=== PATIENT | female | born 1960 | race Caucasian/White ===

== ENCOUNTER 2021-09-27 14:06 | Emergency (ER) | payer MEDICAID, SELFPAY ==
[2021-09-27 14:07] VITALS: BP 119/74; PULSE 72; RESP 18; TEMP 36.2; O2SAT 97; BMI 45.9
--- NOTE | 2021-09-27 14:27 | ED.VIS.GI ---
HPI HPI - GI History of Present Illness Chief Complaint: Abd Pain Informant: patient Abdominal Pain/Flank Pain Onset: Days Context: Sudden Onset Timing: Continuous Quality: Aching, Cramping and Dull Location: Diffuse Current Severity: Mild Maximum Severity: Mild Worsened by: Nothing Relieved by: Nothing Nausea/Vomiting/Emesis GI Symptom: Negative for Nausea and Vomiting Diarrhea/Melena/Hematochezia GI Symptom: Negative for Diarrhea, Melena and Hematochezia Associated Symptoms Associated Symptoms: Negative for Dysuria, Frequency, Hematuria and Urgency Narrative Narrative: 61-year-old female undergoing chemotherapy for lymphoma. Had chemotherapy last Thursday and the prior Thursday. States she has been doing well surgical and abdominal pain periumbilical for last 4 days. Denies any nausea vomiting or diarrhea. No fever or chills. No dysuria. No melena. Said last week she was constipated but she has been having bowel movements now. She has had a prior cholecystectomy and . Prior similar symptoms: No Recent Illness/Hospitalization: No PFSH PFSH Medical History Chronic depressive personality disorder Degenerative disc disease Genital herpes Hypertension Lymphoma Osteoarthritis Home Medications amlodipine 5 mg PO DAILY #30 tablet 11/14/16 [Rx Last Taken Unknown] fluoxetine 20 mg PO DAILY #30 capsule 11/14/16 [Rx Last Taken Unknown] lisinopril-hydrochlorothiazide [Zestoretic] 1 ea PO DAILY #30 tab 11/14/16 [Rx Last Taken Unknown] nicotine 21 mg TRANSDERM. DAILY #30 patch 11/14/16 [Rx Last Taken Unknown] Allergy/AdvReac Type Severity Reaction Status Date / Time celecoxib [From Celebrex] Allergy Itching Verified 09/27/21 14:06 rabbit dander Allergy Other Verified 09/27/21 14:06 Surgical History History of cholecystectomy Social History Smoking Status: Current every day smoker tobacco type: cigarettes ROS ROS ED ROS Narrative Abdominal pain. Review of Systems ROS Unobtainable: Denies due to encephalopathy Constitutional Constitutional ED: Denies fever(s) ENT ENT ED: Denies ear pain Cardiovascular Cardiovascular: Denies chest pain Respiratory/Chest Respiratory/Chest: Denies dyspnea Gastrointestinal Gastrointestinal: Reports abdominal pain and constipation; Denies diarrhea, melena, nausea or vomiting Genitourinary Genitourinary ED: Denies dysuria Musculoskeletal Musculoskeletal: Denies myalgias Integumentary Denies rash Neurologic Neurologic: Denies headache(s) Psychiatric Psychiatric: Denies depression Endocrine Endocrinology: Denies polyuria Hematologic/Lymphatic Hematologic/Lymphatic: Denies easy bruising Allergic/Immunologic Allergic/Immunologic ED: Denies urticaria EXAM Physical Exam Narrative Exam Narrative: 61-year-old female no acute distress. Vital signs stable afebrile. HEENT exam unremarkable. Neck nontender. Lungs clear to auscultation bilaterally. Heart regular rate and rhythm rate about 70 no murmur. Abdomen soft nondistended normal bowel sounds no peritoneal signs. Mild periumbilical tenderness. No pulsatile mass. No hernia. No obstruction. Right upper and lower quadrants are unremarkable. Moving all 4 extremities. Neurologically she is awake and alert with no focal motor deficits. Const Vital Signs: 09/27/21 14:07 09/27/21 17:00 Temperature 97.2 F L Temperature Source Temporal Pulse Rate 72 67 Respiratory Rate 18 16 Blood Pressure 119/74 149/76 H Blood Pressure Mean 89 100 Pulse Ox 97 97 Oxygen Delivery Method Room Air Room Air Positive well nourished, well developed and obese; Negative for cachectic, contractures or unkempt General Appearance ED: well developed and NAD; Negative for unkempt, cachectic, contractures or pallor Nutritional Appearance: obese; Negative for cachectic HEENT Reports moist mucous membranes normocephalic and atraumatic; Negative for trauma or tenderness Eyes PERRL and EOMs intact bilaterally General Eye ED: Negative for pale conjunctiva or scleral icterus Neck no lymphadenopathy, supple and no JVD General: Negative for tenderness Resp normal respiratory effort and clear to auscultation bilaterally Auscultation: Negative for rales, rhonchi or wheezes Cardio regular rate, regular rhythm, S1 normal heart sound, S2 normal heart sound and no murmurs GI non-distended and no masses; Negative for non-tender Inspection: abdominal distention Auscultation: normoactive bowel sounds and hypoactive bowel sounds Palpation: soft and tender; Negative for guarding, rigid or rebound tenderness present Back/Spine no CVA tenderness General Back: Negative for CVA tenderness Cervical Spine: Negative for cervical spine tenderness Thoracic Spine / Upper Back: Negative for thoracic spinal tenderness Extremity full ROM General Extremety ED: Negative for edema or tenderness General Extremity: Negative for edema Neuro moves all extremities Sensorium / Orientation: alert, oriented to person, oriented to place and oriented to time; Negative for orientation impaired, confused, lethargic or stuporous Motor Exam: strength 5/5 throughout Psych mental status grossly normal and thought process normal Appearance: Negative for unkempt Attitude: No agitated Mood & Affect: Negative for depressed or tearful Skin no wounds General Skin Exam: Negative for jaundice or pallor Lesions: no lesions Rashes: no rashes MDM MDM MDM Narrative Medical decision making narrative: 61-year-old female with lymphoma currently undergoing chemotherapy with periumbilical abdominal pain for the last 4 days. Exam benign. She is mildly tender. CAT scan and labs pending. She did not anything for pain at this time and is having no nausea. Repeat exam patient is doing well at 5:35 PM. Abdomen is benign. We went over all of her test results. Including her CAT scan. She will be discharged home with outpatient follow-up with her oncologist. She does return if worse. Lab Data Attestation: I reviewed the patient's lab results. Lab results narrative: CBC shows elevated white count of 16.6 she has a history of lymphoma. H&H 11.9 and 35.3. Platelets 210. Electrolytes show a gap of 4 BUN 27 creatinine 0.93 liver enzymes are normal. Lipase 112 and normal. Urinalysis is normal with no whites nor red cells nor bacteria nor nitrates. CAT scan shows enlarged lymph nodes consistent with lymphoma. Labs: Laboratory Results - last 24 hr 09/27/21 09/27/21 09/27/21 14:56 14:56 15:00 WBC 16.6 H RBC 3.95 L Hgb 11.9 L Hct 35.3 L MCV 89.4 MCH 30.1 MCHC 33.7 RDW Std Deviation 47.5 H RDW Coeff of Gabby 14.9 H Plt Count 210 MPV 9.9 Neut % (Auto) Not Reportable Absolute Neuts (auto) 14.6 H Absolute Lymphs (auto) 0.50 L Total Counted 100 Neutrophils % (Manual) 61 Band Neutrophils % 27 H Lymphocytes % (Manual) 3 L Monocytes % (Manual) 3 Eosinophils % (Manual) 1 Metamyelocytes % 3 H Myelocytes % 2 H Diff Path Review May foll Platelet Estimate ADEQUATE RBC Morphology NORM C+C Sodium 139 Potassium 3.7 Chloride 105 Carbon Dioxide 30.0 Anion Gap 4 L BUN 27 H Creatinine 0.93 Estim Creat Clear Calc 100.07 Est GFR (MDRD) Af Amer 79 Est GFR (MDRD) Non-Af 65 BUN/Creatinine Ratio 29.1 H Glucose 95 Calcium 8.6 Total Bilirubin 0.20 AST 14 L ALT 37 Alkaline Phosphatase 90 Total Protein 6.0 L Albumin 3.1 L Globulin 2.9 Albumin/Globulin Ratio 1.1 Lipase 112 Urine Color Yellow Urine Clarity Clear Urine pH 7.0 Ur Specific [place] 1.010 Urine Protein Negative Urine Glucose (UA) Normal Urine Ketones Negative Urine Occult Blood Negative Urine Nitrite Negative Urine Bilirubin Negative Urine Urobilinogen Normal Ur Leukocyte Esterase Negative Urine RBC 0 SEEN Urine WBC 0 SEEN Ur Squamous Epith Cells 0-5 SEEN Urine Bacteria 0 SEEN Urine Mucus 0 SEEN Radiography Diagnostic Testing: Clinical Impression(s) from Imaging Studies Abdomen/Pelvis CT 09/27/21 15:25 IMPRESSION: 1. No acute inflammatory process or bowel obstruction. 2. Mesenteric, retroperitoneal, iliac chain and inguinal adenopathy compatible with history provided of lymphoma. No comparison study to assess for interval change. 3. Hypodense lesions of the liver, some with ill-defined margins (indeterminate). ACR White Paper guidelines (Dionisio et al. JACR 2017; 14(11):1134-5835.) recommend hepatic MR. Electronically Signed: Jeffrey Kolb MD ([place]) at 15:54 EDT Reading Location ID and State: / [place] , Service support , Discharge Plan Triage Chief Complaint: Abd Pain ED Provider: Checo Jarvis Dx/Rx/DC Orders Clinical Impression: Abdominal pain, History of lymphoma Instructions: Abdominal Pain Prescriptions: No Action amlodipine 5 MG tablet 5 mg PO DAILY Qty: 30 RF: 0 nicotine 21 MG patch 21 mg TRANSDERM. DAILY Qty: 30 RF: 0 fluoxetine 20 MG capsule 20 mg PO DAILY Qty: 30 RF: 0 lisinopril-hydrochlorothiazide [Zestoretic] 1 EACH tablet 1 ea PO DAILY Qty: 30 RF: 0 Primary Care Provider: Dandre Lee Referrals: Dandre Lee MD [Primary Care Provider] - As Needed Roe Camilo DO [STAFF PHYSICIAN] - 3-5 Days Activity Restrictions/Additional Instructions: Plenty of fluids and rest. Your test today look good. Follow-up with Dr. Camilo next week. Return if you are feeling a lot worse. Your labs and your CAT scan today were unremarkable. Disposition Disposition: Home, Self Care
[2021-09-27 15:05] LABS: Bacteria 0 SEEN /hpf (None Seen); Mucous, Urine 0 SEEN /hpf (<or=2+); Red Blood Cells-Urine 0 SEEN /hpf (0-5); White Blood Cells 0 SEEN /hpf (0-5)
[2021-09-27 15:07] LABS: Hematocrit 35.3 % (37-47); Hemoglobin 11.9 g/dL (12.0-15.0); Mean Corp Hgb Conc 33.7 g/dL (32-36); Mean Corpuscular Hgb 30.1 pg (27.0-32.0); Mean Corpuscular Volume 89.4 fL (81-99); Mean Platelet Vol. 9.9 fl (6.2-12.0); POSITIVE COUNT YES; POSITIVE MORPHOLOGY YES; Platelet Count 210 K/mm3 (150-450); RBC Distribution Width CV 14.9 % (11.6-14.6); RBC Distribution Width SD 47.5 fl (35.1-43.9); Red Blood Count 3.95 M/mm3 (4.2-5.4); White Blood Count 16.6 K/mm3 (4.4-11.0)
[2021-09-27 15:15] LABS: Color, Urine Yellow (Yellow); Glucose, Dipstick Normal (Normal); Ketone-Dipstick Negative (Negative); Leukocyte Esterase-Dipstick Negative /ul (Negative); Nitrite-Dipstick Negative (Negative); Occult Blood-Urine Negative /ul (Negative); Protein-Dipstick Negative (Negative); Urine Bilirubin Dipstick Negative (Negative); Urine Clarity Clear (Clear); Urine Urobilinogen Normal (Normal)
[2021-09-27 15:22] LABS: ALB/GLOB Ratio 1.1 RATIO (0.9-2.4); AST(SGOT) 14 U/L (15-37); Alanine Aminotransfer ALT/SGPT 37 U/L (13-56); Albumin, Serum 3.1 g/dL (3.2-5.0); Alkaline Phosphatase 90 U/L (45-117); Anion Gap 4 (5-15); BUN 27 mg/dL (7-18); BUN/Creat Ratio 29.1 RATIO (10-20); Calcium,Total 8.6 mg/dL (8.5-10.1); Chloride 105 mmol/L (98-107); Creatinine, Serum 0.93 mg/dL (0.55-1.02); EST Glomerular Filtration Rate 65 mL/min (>60); Est Glom Filt Rate - Afr Amer 79 mL/min (>60); Estimated Creatinine Clearance 100.07 ml/min; Globulin 2.9 g/dL (2.2-4.2); Glucose 95 mg/dL (74-106); Lipase 112 U/L (73-393); Potassium 3.7 mmol/L (3.5-5.1); Sodium Level 139 mmol/L (136-145)
--- NOTE | 2021-09-27 15:25 | CT_ITS ---
STUDY: CT ABDOMEN AND PELVIS WITH CONTRAST REASON FOR EXAM: Female, 61 years old. Abdominal pain, history of lymphoma. RADIATION DOSAGE (If Supplied By Facility): CTDIvol = ( 15.90 ) mGy, DLP = ( 1115.39 ) mGycm TECHNIQUE: Transaxial images were obtained from the dome of the diaphragm to the symphysis pubis without oral contrast. IV 100mL Isovue-300 was administered. Sagittal and coronal images were reconstructed. Individualized dose optimization techniques were used for this CT. COMPARISON: None. FINDINGS: The visualized lung bases are unremarkable. The visualized portions of the heart are within normal limits. Low-density lesions of the liver are identified measuring up to 1.1 cm, with mildly ill-defined margins involving some lesions. Normal gallbladder and extrahepatic biliary system. Well-defined simple cyst of the spleen. Normal pancreas. Normal bilateral adrenal glands. Normal right kidney. Normal left kidney. Normal visualized stomach. No dilated bowel. There are multiple colonic diverticula consistent with diverticulosis. There is non-visualization of the appendix. There is diffuse atherosclerotic calcification of the abdominal aorta, without a demonstrated aneurysm. Normal inferior vena cava. Adenopathy of the retroperitoneum the largest single lymph node measuring 2.5 x 3.0 cm on image 51 of series 2. There is also adenopathy of the mesentery root measuring up to 2.2 x 2.6 cm. Bilateral iliac chain adenopathy measuring up to 1.4 x 2.1 cm. Bilateral inguinal adenopathy also identified measuring up to 2.4 x 4.8 cm on the left side and 2.2 x 4.4 cm on the right side. Normal urinary bladder. Normal abdominal wall. There are diffuse degenerative changes of the visualized lumbar spine. CT/Abdomen/Pelvis W IV Cont ONLY IMPRESSION: 1. No acute inflammatory process or bowel obstruction. 2. Mesenteric, retroperitoneal, iliac chain and inguinal adenopathy compatible with history provided of lymphoma. No comparison study to assess for interval change. 3. Hypodense lesions of the liver, some with ill-defined margins (indeterminate). ACR White Paper guidelines (Dionisio, et al. JACR 2017; 14(11):4582-4120.) recommend hepatic MR. Electronically Signed: Jeffrey Kolb MD ([place]) at 15:54 EDT ,
[2021-09-27 15:38] LABS: Differential Indicated MANUAL DIFF
[2021-09-27 15:40] LABS: Squamous Epithelial Cells - UA 0-5 SEEN /hpf (5-10)
[2021-09-27 15:55] LABS: Eosinophil 1 % (0-5); Lymphocyte 3 % (19-41); Metamyelocyte 3 % (0-1); Monocyte 3 % (0-10); Myelocyte 2 % (0-0); Neutrophil-Band 27 % (0-5); Neutrophil-Segmented 61 % (47-70); Platelet Estimate ADEQUATE (ADEQ); Total Cells Counted 100 (MANUAL DIFF)
[2021-09-27 15:56] LABS: Red Cell Morphology NORM C+C NORMAL (NORM C&C)
[2021-09-27 16:00] LABS: Absolute Neutrophil Count 14.6 X10^3/uL (2.0-7.7)
[2021-09-27 17:00] VITALS: BP 149/76; PULSE 67; RESP 16; O2SAT 97
[2021-09-30 12:50] LABS: Pathologist Review Reviewed
== END 2021-09-27 18:17 | disposition home or self-care (01) ==
PROVIDERS: Emergency Provider Emergency Medicine; PCP Family Medicine; Visit Provider Emergency Medicine
DX: R10.9 Unspecified abdominal pain (principal); C85.90 Non-Hodgkin lymphoma, unspecified, unspecified site; I10 Essential (primary) hypertension; F17.210 Nicotine dependence, cigarettes, uncomplicated; Z79.899 Other long term (current) drug therapy; F32.A Depression, unspecified; M19.90 Unspecified osteoarthritis, unspecified site
CPT/HCPCS: 36591; 74177; 80053; 81001; 83690; 85025; 99284; Q9967; A4216

== ENCOUNTER 2021-10-14 09:12 | Emergency (ER) | payer MEDICAID, SELFPAY ==
[2021-10-14 09:13] VITALS: BP 138/77; PULSE 90; RESP 18; TEMP 36.2; O2SAT 98; BMI 44.5
[2021-10-14 09:25] VITALS: O2SAT 97
--- NOTE | 2021-10-14 09:35 | CT_ITS ---
STUDY: CTA CHEST REASON FOR EXAM: Female, 61 years old. Shortness of breath RADIATION DOSAGE (If Supplied By Facility): CTDIvol = ( 11.41 ) mGy, DLP = ( 519.34 ) mGycm TECHNIQUE: The examination was performed with the intravenous administration of IV 100mL Isovue-370. Post-processing of the angiographic images was performed, with multiplanar reformation and 3D reconstruction. Individualized dose optimization techniques were used for this CT. COMPARISON: None. FINDINGS: Right jugular chest port with tip of the catheter extending to the lower SVC. Normal enhancement of the main pulmonary artery and right and left pulmonary arteries. Normal enhancement of the bilateral peripheral pulmonary arteries. There is no demonstrated pulmonary embolism. Mild scattered atherosclerosis of the thoracic aorta. There is no demonstrated aortic dissection. Normal heart and pericardium. Normal mediastinum. Normal hilar regions. Normal visualized trachea and bronchi. The lungs are well expanded. Normal pulmonary parenchyma. Normal pleura. Normal chest wall structures. Normal osseous structures. Simple cyst of the elongated left hepatic lobe. Moderate size hiatal hernia. CT/CTA Chest W/WO Contrast IMPRESSION: No central or segmental pulmonary embolism. Electronically Signed: Jeffrey Kolb MD ([place]) at 10:54 EDT Reading Location ID and State: [place] , Service support ,
--- NOTE | 2021-10-14 10:02 | ED.VIS.DYS ---
HPI History of Present Illness Chief Complaint: Shortness of Breath Narrative Narrative: Patient presents with chest pain and some shortness of breath. She is on chemotherapy, she has had 5 rounds. She has no back pain. No cough or congestion. No recent fevers or chills. She has no lower extremity edema or calf pain. [facility] Medical History Chronic depressive personality disorder Degenerative disc disease Genital herpes Hypertension Lymphoma Osteoarthritis Home Medications lisinopril-hydrochlorothiazide [Zestoretic] 1 ea PO DAILY #30 tab 11/14/16 [Rx Last Taken Unknown] acyclovir 400 mg PO BID 10/14/21 [History Last Taken Unknown] allopurinol 300 mg PO DAILY 10/14/21 [History Last Taken Unknown] fluoxetine 60 mg PO DAILY 10/14/21 [History Last Taken Unknown] meloxicam 15 mg PO DAILY 10/14/21 [History Last Taken Unknown] pantoprazole 40 mg PO DAILY 10/14/21 [History Last Taken Unknown] prednisone 100 mg PO DAILY 10/14/21 [History Last Taken Unknown] promethazine 25 mg PO Q6H PRN 10/14/21 [History Last Taken Unknown] Allergy/AdvReac Type Severity Reaction Status Date / Time celecoxib [From Celebrex] Allergy Itching Verified 10/14/21 09:13 rabbit dander Allergy Other Verified 10/14/21 09:13 Surgical History History of cholecystectomy Social History Smoking Status: Current every day smoker tobacco type: cigarettes ROS ROS ED ROS Narrative Past medical history: Reviewed, lymphoma, hypertension Medications: Reviewed Social history: Noncontributory Review of systems: All systems negative except as indicated General: No fever Eyes: No visual changes ENT: No upper airway congestion, normal voice Neck: No neck pain Cardiovascular: Some slight sharp left upper chest pain near the clavicle Respiratory: Some shortness of breath mostly exertional Gastrointestinal: No abdominal pain, nausea vomiting or diarrhea Genitourinary: No dysuria Musculoskeletal: Denies myalgias no difficulty with ambulation Skin: No rash Neurological: No memory loss, confusion or any focal weakness Psych: No recent behavioral changes Hematologic: No easy bleeding or easy bruising EXAM Physical Exam Narrative Exam Narrative: Physical exam General: Patient appears relatively comfortable in the bed, she does not appear acutely ill. Head: Normocephalic, Atraumatic Eyes: Conjunctiva not pale ENT: Moist mucous membranes. I do not see any signs of dehydration Neck: Supple, Nontender, No lymphadenopathy Cardiovascular: Regular rate, Regular rhythm. I listened in all 4 points there is no murmurs. She has an S1 and S2 which are normal. I could not appreciate an S3 or S4. Respiratory: No distress, CTA bilaterally Abdomen: Soft, Nontender, Nondistended Back: Nontender, Normal Inspection. Negative for: CVA tenderness Extremities: Nontender, No edema Skin: Normal color, No rash Neurological: Alert, Normal Strength, Normal Sensation Psychological: Normal affect Const Vital Signs: 10/14/21 09:13 10/14/21 09:25 Temperature 97.1 F L Temperature Source Temporal Pulse Rate 90 Respiratory Rate 18 Respiratory Effort Normal Non-Labored Respiratory Depth Normal Respiratory Pattern Normal Blood Pressure 138/77 H Blood Pressure Mean 97 Pulse Ox 98 Oxygen Delivery Method Room Air Room Air MDM MDM MDM Narrative Medical decision making narrative: Patient has a normal troponin normal EKG and normal CT angiogram she appears well I believe she can safely be discharged I believe her dyspnea is likely secondary to the chemotherapeutic agents. Otherwise she appears well should be discharged in stable condition, she will will follow-up with her oncologist tomorrow Lab Data Labs: Laboratory Results - last 24 hr 10/14/21 10:15 Troponin I High Sens 6 Radiography Diagnostic Testing: Clinical Impression(s) from Imaging Studies Chest CTA 10/14/21 09:35 IMPRESSION: No central or segmental pulmonary embolism. Electronically Signed: Jeffrey Kolb MD ([place]) at 10:54 EDT Reading Location ID and State: [address] [place] [address] , Service support , Discharge Plan Triage Chief Complaint: Shortness of Breath ED Provider: Roe Aguilar Dx/Rx/DC Orders Prescriptions: No Action lisinopril-hydrochlorothiazide [Zestoretic] 1 EACH tablet 1 ea PO DAILY Qty: 30 RF: 0 meloxicam 15 mg tablet 15 mg PO DAILY RF: 0 prednisone 20 mg tablet 100 mg PO DAILY RF: 0 acyclovir 400 mg tablet 400 mg PO BID RF: 0 pantoprazole 40 mg tablet,delayed release (DR/EC) 40 mg PO DAILY RF: 0 promethazine 25 mg tablet 25 mg PO Q6H PRN (Reason: Nausea) RF: 0 allopurinol 300 mg tablet 300 mg PO DAILY RF: 0 fluoxetine 20 MG capsule 60 mg PO DAILY RF: 0 Primary Care Provider: Dandre Lee Referrals: Dandre Lee MD [Primary Care Provider] - 3-5 Days Roe Camilo DO [STAFF PHYSICIAN] - 1 Day Disposition Disposition: Home, Self Care
[2021-10-14 10:41] LABS: Troponin-I HS 6 pg/mL (3.0-54.0)
[2021-10-14 11:40] VITALS: PULSE 64; RESP 16; O2SAT 97
--- NOTE | 2021-10-14 11:41 | ED.RN ---
pt had port deaccessed. port flushed with heparin. pt tolerated well. pt given written and verbal discharge instructions. pt ambulated to without difficulty
== END 2021-10-14 11:41 | disposition home or self-care (01) ==
PROVIDERS: Emergency Provider Emergency Medicine; PCP Family Medicine; Visit Provider Emergency Medicine
DX: R06.02 Shortness of breath (principal); C85.90 Non-Hodgkin lymphoma, unspecified, unspecified site; I10 Essential (primary) hypertension; F17.210 Nicotine dependence, cigarettes, uncomplicated; Z79.899 Other long term (current) drug therapy; M19.90 Unspecified osteoarthritis, unspecified site; Z79.52 Long term (current) use of systemic steroids; A60.00 Herpesviral infection of urogenital system, unspecified
CPT/HCPCS: 36591; 71275; 84484; 99284; Q9967; A4216

== ENCOUNTER → 2022-05-05 | Outpatient (CLI) | payer MEDICAID, SELFPAY ==
--- NOTE | 2022-05-05 08:08 | RAD_ITS ---
PROCEDURE: Fluoroscopic guided Hip Injection DATE: 05/05/2022. INDICATION: Female, 62 years old. Osteoarthritis of the left hip joint. PHYSICIAN: Martin Alberto M.D. MEDICATIONS: 80 mg of KENALOG and 3 cc of 0.5% MARCAINE. 2% Lidocaine administered subcutaneously for local anesthesia. ACCESS SITE: Left hip. NEEDLE: 22-gauge spinal needle. FLUOROSCOPY TIME (if supplied): (0:49) minutes/seconds. One image was submitted. FINDINGS: The risks, benefits, and alternatives to the procedure were explained to the patient. The specific risks of bleeding, infection, and neurovascular injury were detailed and accepted. Witnessed informed consent was obtained. A 22-gauge spinal needle was positioned under Radiographic fluoroscopic localization. Approximately 2 cc of Omnipaque ISOVUE 300 instilled for localization purposes. Medication was then injected. The patient tolerated the procedure well without any immediate complications. RAD/Inj/Asp Mateo Jt Should/Hip/Knee IMPRESSION: 1. Successful fluoroscopic guided hip injection. Electronically Signed: Martin Alberto MD at 9:38 EST ,
[2022-05-05] MEDS: Lidocaine 2% (5ml sdv) 5 ML VIAL.MPF INFILT (08:30)
[2022-05-05] MEDS: Triamcinolone Acetonide 40 MG/ML Vial 80 MG OPERA.SITE (08:31)
[2022-05-05] MEDS: Bupivacaine 0.5% PF 10 ML VIAL OPERA.SITE (09:14)
== END | disposition home or self-care (01) ==
LOC: RAD 08:05
PROVIDERS: PCP Family Medicine; Referring Provider Orthopaedic Surgery; Visit Provider Orthopaedic Surgery
DX: M16.12 Unilateral primary osteoarthritis, left hip (principal)
CPT/HCPCS: 20610; 77002; Q9967

== ENCOUNTER 2023-09-24 11:00 | Outpatient (RCR) | payer MEDICAID, SELFPAY ==
--- NOTE | 2023-08-26 11:21 | HP.PTEVAL_ITS ---
Patient's Visit Information Visit Information Visit Information: DAERN JACKSON is a 63 year old F referred to Physical Therapy by Dr. Kenroy Art DO with a diagnosis of OTHER INTERVERTBRAL DISC DEGENERATION ,LUMBAR. Date of Evaluation: 08/26/23 Physical Therapist: Ti Ortiz, PT, Cert MDT, OCS Visit Plan Frequency: 2x /Week Duration: 4 Weeks Plan: PT INTERVENTIONS DLS ,POSTURAL EX'S , HIP ROM ,STRENGTHENING HIP ,FUNCTIONAL STRENGTHENING AND FUNCTIONAL STRENGTHENING Subjective Subjective: This 63 y/o female physical therapy with back pain and hip pain. Patient has had lumbar pain and hip pain many years with left hip pain worse past [address] hall x-rays showed severe DJD left hip , and DDD lumbar. Pain located symmetrical lumbar and left Glut to lateral hip. Aggravating factors walking/standing ,lifting housework . Allevationg rest and sitting. Medication : meloxicam. No pain management and prior PT. Coughing/ sneezing -. Bowel/bladder -. Denies paresthesia/tingling-. Pain affects sleeping. Patient is not working. Patient condition affects QOL and function. Dr wants MRI but needs PT Patient goals to decrease pain SOCIAL: single VOCATION: unemployed trying to get disability Pain Bilateral Back: Pain Intensity (Out of 10): 7 Pain Intensity Range: 10 Left Buttocks: Pain Intensity (Out of 10): 7 Pain Intensity Range: 10 Objective Objective: POSTURE: mild forward posture scoliosis bilateral knee varus hip/knee flexed NEURO: denies paresthesia/tingling ,reflexes L3-4,L4-5,L5-S1 2/3 PALAPTION: tender SI/LS PROM: hip left -20 degrees IR ,hip flexion 95 degrees FLEXIBILITY: hamstrings mod tight LUMBAR ROM: flexion min/mod loss ,extension severe loss pain ,side mod loss MMT: quads/hams 4/5 ,( peak force) hip flexion 15.8 ,hip abd 3.4 ,ankle 4/5 Special Tests L/S Slump test left side: Negative L/S Slump test right side: Negative L/S Left Straight Leg Raise: Negative L/S Right Straight Leg Raise: Negative L Hip Scour: Positive L Hip Quadrant - Intraarticular Pathology: Positive L Hip SIRISHA - Intraarticular Pathology: Positive L Hip Impingement Provocation - Labrum: Negative L Hip Sotero - IT Band: Positive Comment: SEVERE OA LEFT HIP Balance/Special Test Scores Oswestry Low Back Score: 32 Goals Goal 1:: I with HEP for lumbar Goal Time Frame: 4-6 Weeks Goal 2:: Patient to demonstrates 40% improvement with less pain and improved Goal Time Frame: 4-6 Weeks Goal 3:: Patient to improve lumbar lumbar ROM for function of recovery to tie shoes Goal Time Frame: 4-6 Weeks Goal 4:: Patient to improve hip ROM by 5-10 degrees or > to function with gait . Goal Time Frame: 4-6 Weeks Goal 5:: Patient to improve gait with less antalgic gait 80% . Goal Time Frame: 4-6 Weeks Goal 6:: Patient to improve back oswestry score by 5 points to improve QOL Rehabilitation Potential Physical Therapy Diagnosis: This patient has lumbar DDD and left hip severe DJD with ROM hip and pain along with weakness ,with decrease ROM lumbar with pain with positioning and motion affects affects walking and standing impairs ADLS thus benefit from skilled PT Rehabilitation Potential: Good Anticipated Interventions Patient/Client Instruction: Educate patient on: Condition and Plan of Care For the Purpose of:: To decrease pain, To increase ROM, To improve muscle performance and motor function, To improve ability to perform ADL's, To increase tolerance to activity/condition/position, To improve ability of physical actions for home/community/work/leisure, To improve health of tissue, To decrease soft tissue restriction, To increase flexibility/ROM and To improve tolerance to ADL's Therapeutic Exercise to Include: Strength training, Body mechanics, Postural training, Flexibilty training and Dynamic Lumbar Stabilization Comment: HIP STRENGTHENING For the Purpose of:: To decrease pain, To increase ROM, To improve ability to perform ADL's, To increase tolerance to activity/condition/position, To improve ability of physical actions for home/community/work/leisure, To improve health of tissue, To decrease soft tissue restriction, To increase flexibility/ROM and To improve tolerance to ADL's TENS: Yes IF ES: Yes Cryotherapy (ice pack, ice massage): Yes Thermo therapy (hot pack): Yes Ultrasound (thermal/non thermal): Yes For the Purpose of:: To decrease pain, To increase ROM, To improve health of tissue and To decrease soft tissue restriction Text: Thank you for the opportunity to evaluate your patient. For Medicare and Medicare HMO plans, please review the plan of care and approve it. It will need to be FAXED BACK to us at [phone] for Medicare purposes. For Medicare only, by signing this I certify the plan of care. Please let me know if there are questions or concerns regarding this plan of care. Physician Signature: Date:
--- NOTE | 2023-09-24 11:28 | HP.PTDCSUM ---
Discharge Summary D/C summary: It has been my pleasure to treat DAREN JACKSON referred by Dr. Kenroy Art DO, with the diagnosis of OTHER INTERVERTBRAL DISC DEGENERATION ,LUMBAR for a total of 7 visit(s). Discharge Date: Please see the following information for a summary of their discharge status. Subjective Subjective: Patient thinks she is not much. Pain worse with walking/standing Patient reports hip is worse than back Pain Bilateral Back: Pain Intensity (Out of 10): 3 Left Buttocks: Pain Intensity (Out of 10): 5 Overall Improvement % Improvement: 10 Objective Objective/Function: * Along with poor extension with pain and poor IR hip left along with hipm weakenss* POSTURE: mild forward posture scoliosis bilateral knee varus hip/knee flexed NEURO: denies paresthesia/tingling ,reflexes L3-4,L4-5,L5-S1 2/3 PALAPTION: tender SI/LS PROM: hip left -20 degrees IR ,hip flexion 95 degrees FLEXIBILITY: hamstrings mod tight LUMBAR ROM: flexion min/mod loss ,extension severe loss pain ,side mod loss MMT: quads/hams 4/5 ,( peak force) hip flexion 21.8 ,hip abd 9.0 ,ankle 4/5 Goals Goal 1:: I with HEP for lumbar Goal Progress: Progressing Goal 2:: Patient to demonstrates 40% improvement with less pain and improved Goal Progress: Progressing Goal 3:: Patient to improve lumbar lumbar ROM for function of recovery to tie shoes Goal Progress: Progressing Goal 4:: Patient to improve hip ROM by 5-10 degrees or > to function with gait . Goal Progress: Progressing Goal 5:: Patient to improve gait with less antalgic gait 80% . Goal Progress: Progressing Goal 6:: Patient to improve back oswestry score by 5 points to improve QOL Plan Plan: RTD to DR bang MRI D/C Information d/c sentence: If there are questions or concerns regarding this patient's physical therapy, please feel free to call me at [phone]. Thank you for the referral of this patient. Sincerely, Ti Ortiz, PT, Cert MDT, OCS Balance/Gait/Functional tests Balance/Special Test Scores Oswestry Low Back Score: 32 Improvement % Improvement: 10
== END 2023-09-24 19:00 | disposition home or self-care (01) ==
LOC: PT 11:00
PROVIDERS: PCP Family Medicine; Visit Provider Orthopaedic Surgery
DX: M51.36 Other intervertebral disc degeneration, lumbar region (principal)
CPT/HCPCS: 97110; 97162; 97530

== ENCOUNTER 2023-10-05 19:34 | Emergency (ER) | payer MEDICAID, SELFPAY | END 2023-10-05 19:41 | disposition left against medical advice (07) | LOC: ED 10-06 08:04 | PROVIDERS: PCP Family Medicine | DX: Z53.21 Procedure and treatment not carried out due to patient leaving prior to being seen by health care provider (principal) ==

== ENCOUNTER → 2023-10-22 | Outpatient (CLI) | payer MEDICAID, SELFPAY ==
--- NOTE | 2023-10-22 10:47 | MRI_ITS ---
EXAM: MR LUMBAR SPINE WITHOUT INTRAVENOUS CONTRAST CLINICAL INDICATION: pain TECHNIQUE: Multiplanar and multisequence MR images of the lumbar spine without intravenous contrast. COMPARISON: Lumbar spine radiographs, 08/14/2023; CT abdomen and pelvis, 09/27/2021. FINDINGS: VERTEBRAE: Postoperative changes of mild degenerative changes partially visualized in the cervical spine. Mild degenerative changes in the thoracic spine without significant spinal canal or neural foraminal stenosis. Vertebral body heights are preserved. Normal alignment. No spondylolisthesis. There is preservation of the normal lumbar lordosis. SPINAL CORD: The distal spinal cord is normal in signal and morphology. No mass effect upon the distal spinal cord. Normal position and signal intensity of the conus medullaris. SOFT TISSUES: No significant abnormality. DISCS/SPINAL CANAL/NEURAL FORAMINA: L1-L2: Disc height loss and disc desiccation. Disc bulge with superimposed right central disc herniation and moderate bilateral facet arthrosis resulting in moderate spinal canal stenosis and mild bilateral neural foraminal narrowing. Impingement of the right L2 nerve root. L2-L3: Disc height loss and disc desiccation. Disc bulge with superimposed central disc herniation and moderate bilateral facet arthrosis. Mild to moderate spinal canal stenosis and mild bilateral neural foraminal narrowing. No nerve root impingement. L3-L4: Disc height loss and disc desiccation. Disc bulge and moderate to severe bilateral facet arthrosis with ligamentum flavum thickening. Mild to moderate spinal canal stenosis and mild bilateral neural foraminal narrowing. No nerve root impingement. L4-L5: Disc bulge with superimposed right foraminal to extraforaminal disc herniation and moderate to severe bilateral facet arthrosis. Mild bilateral neural foraminal narrowing and mild spinal canal stenosis. L5-S1: Disc height loss and disc desiccation. Disc bulge and moderate to severe bilateral facet arthrosis. Central disc herniation. Mild spinal canal stenosis and mild bilateral neural foraminal narrowing. No nerve root impingement. MRI/Spine Lumbar (Routine) IMPRESSION: 1. Multilevel degenerative changes throughout the lumbar spine as detailed above. Mild to moderate multilevel spinal canal stenosis and neural foraminal narrowing. Right L2 nerve root impingement. 2. Postoperative changes of mild degenerative changes partially visualized in the cervical spine. If there is concern for cervical spine pathology, recommend indicate images of the cervical spine. Electronically Signed: Carlito Cardenas DO at 19:41 EDT ,
== END | disposition home or self-care (01) ==
LOC: MRI 10:46
PROVIDERS: PCP Family Medicine; Referring Provider Orthopaedic Surgery; Visit Provider Orthopaedic Surgery
DX: M51.36 Other intervertebral disc degeneration, lumbar region (principal)
CPT/HCPCS: 72148

== ENCOUNTER 2023-12-08 14:05 | Inpatient (IN) | payer MEDICAID, SELFPAY ==
[2023-12-08] VITALS (7 sets, daily range): BP systolic 107–136; BP diastolic 69–91; PULSE 78–94; RESP 14–22; TEMP 36.7–37.1; O2SAT 91–98; BMI 41.8; BMI 40.5
--- NOTE | 2023-12-08 14:51 | EDS_ITS ---
HPI History of Present Illness Chief Complaint: Cold Sx Narrative Narrative: 63-year-old female presenting with shortness of breath. She has chills but has not temperature. She does not feel as if she has a fever. She does admit to feeling short of breath. She has a history of lymphoma in the past which is apparently in remission and she sees Dr. Camilo for this. Apparently she had a chest x-ray which was concerning for an infiltrate and Dr. Camilo started on Levaquin and she started feeling better. She states that she also had a CT angiogram of the chest which showed bibasilar infiltrates which was on the fourth of this month. No evidence of PEs. She states that her assistant professor of biology (Dr. Hernandez) referred her to the emergency room for evaluation and possible bronchoscopy. Patient states that her eating and drinking has been fairly normal. She does have a history of GERD and hiatal hernia which she states at times will give her problems but has been better since her antibiotic treatment recently. She denies chest pain. [facility] Medical History Lymphoma Hypertension Degenerative disc disease Osteoarthritis Genital herpes Chronic depressive personality disorder Home Medications ?Medication ?Instructions ?Recorded ?Last Taken ?Type meloxicam 15 mg tablet 15 mg PO DAILY 10/14/21 12/06/23 History pantoprazole 40 mg tablet,delayed 40 mg PO DAILY 10/14/21 12/06/23 History release prednisone 20 mg tablet 60 mg PO DAILY 10/14/21 12/08/23 History albuterol sulfate 90 mcg/actuation 2 puff inhalation Q4H PRN 08/14/23 12/08/23 History aerosol inhaler shortness of breath or wheezing oxybutynin chloride 10 mg 30 mg PO DAILY 12/08/23 12/06/23 History tablet,extended release 24 hr Allergy/AdvReac Type Severity Reaction Status Date / Time celecoxib (From Celebrex) Allergy Itching Verified 10/29/23 13:23 rabbit dander Allergy Other Verified 10/29/23 13:23 Surgical History History of cholecystectomy Social History Smoking Status: Current every day smoker tobacco type: cigarettes ROS ROS ED Constitutional Constitutional ED: Reports chills; Denies fever(s) or sweats Eyes Eyes: Denies blurry vision or change in vision ENT ENT ED: Denies ear pain or sore throat Cardiovascular Cardiovascular: Denies chest pain, palpitations or racing heartbeat Respiratory/Chest Respiratory/Chest: Reports cough, dyspnea and dyspnea on exertion; Denies sputum Gastrointestinal Gastrointestinal: Denies abdominal pain, constipation, diarrhea, nausea or vomiting Genitourinary Genitourinary ED: Denies dysuria, hematuria or urinary frequency Musculoskeletal Musculoskeletal: Denies arthralgias, myalgias or neck pain Integumentary Denies abscess, Abrasions or rash Neurologic Neurologic: Denies headache(s), paresthesias or weakness Psychiatric Psychiatric: Denies anxiety, depression, suicidal ideation or suicidal thoughts Endocrine Endocrinology: Denies polydipsia or polyuria EXAM Physical Exam Const Vital Signs: 12/08/23 14:06 12/08/23 14:06 12/08/23 16:06 Temperature 98.8 F Temperature Source Oral Pulse Rate 88 78 Respiratory Rate 18 16 Respiratory Effort Normal Non-Labored Respiratory Pattern Normal Blood Pressure 136/91 H 122/83 H Blood Pressure Mean 106 96 Pulse Ox 98 93 Oxygen Delivery Method Room Air Room Air 12/08/23 17:00 Temperature 98.2 F Temperature Source Pulse Rate 85 Respiratory Rate 22 H Respiratory Effort Respiratory Pattern Blood Pressure 117/79 Blood Pressure Mean 91 Pulse Ox 92 Oxygen Delivery Method Positive well nourished General Appearance ED: NAD; Negative for pallor HEENT Reports moist mucous membranes atraumatic Eyes PERRL and EOMs intact bilaterally Neck no lymphadenopathy Resp normal respiratory effort and clear to auscultation bilaterally Auscultation: Negative for rales, rhonchi or wheezes Cardio regular rate and regular rhythm Extremity normal to inspection Neuro oriented x3 and CN's II-XII intact bilaterally Sensorium / Orientation: alert Motor Exam: strength 5/5 throughout Psych mental status grossly normal Skin no wounds General Skin Exam: Negative for jaundice or pallor MDM MDM MDM Narrative Medical decision making narrative: Patient presenting with dyspnea. Differential clues viral illness, pneumonia. Patient had a negative sputum culture on 12/02/[address] Camilo. Patient recently had a CTA of the chest which was negative for PE or dissection and showed bibasilar groundglass opacities. There were also multiple nodules. Patient states she was feeling like she was getting better until a couple of days ago when she started to feel the chills and sweats come back. Again she has not had a fever. Will obtain a CBC to assess white blood cell count, hemoglobin, platelets. CMP to assess liver function, renal function, electrolytes. Two-view chest x-ray will be obtained. Ambulating pulse ox will be obtained. Ambulating pulse ox 84% on room air. Leukocytosis of 17.0. Hemoglobin 10.6. Platelets 313. Creatinine slightly elevated 1.06. LFTs are normal. Chest x-ray interpreted by myself shows right upper lobe pneumonia. Patient will be given Zosyn after speaking with the hospitalist. Since he is hypoxic with ambulation we will admit her. Admitted to the floor in stable condition. Impression: 1. Right upper lobe pneumonia 2. Failure of outpatient antibiotics 3. Hypoxia Lab Data Attestation: I reviewed the patient's lab results. Labs: Laboratory Results - last 24 hr 12/08/23 15:05 WBC 17.0 H RBC 4.31 Hgb 10.6 L Hct 33.1 L MCV 76.8 L MCH 24.6 L MCHC 32.0 RDW Std Deviation 52.6 H RDW Coeff of Gabby 19.0 H Plt Count 313 MPV 9.9 Immature Gran % (Auto) 0.900 Neut % (Auto) 93.3 H Lymph % (Auto) 1.1 L [place] % (Auto) 4.6 Eos % (Auto) 0.0 Baso % (Auto) 0.1 Absolute Neuts (auto) 15.9 H Absolute Lymphs (auto) 0.18 L Nucleated RBC % 0 Sodium 135 L Potassium 3.6 Chloride 105 Carbon Dioxide 22.0 Anion Gap 8 BUN 19 H Creatinine 1.06 H Estim Creat Clear Calc 54.59 Est GFR (MDRD) Af Amer 67 Est GFR (MDRD) Non-Af 56 L BUN/Creatinine Ratio 17.9 Glucose 178 H Calcium 8.8 Total Bilirubin 0.60 AST 32 ALT 24 Alkaline Phosphatase 80 B-Natriuretic Peptide 938.1 H Total Protein 6.1 L Albumin 2.6 L Globulin 3.5 Albumin/Globulin Ratio 0.7 L Radiography Diagnostic Testing: Clinical Impression(s) from Imaging Studies Chest X-Ray 12/08/23 15:25 IMPRESSION: Right upper lobe consolidation. Electronically Signed: Martin Alberto MD at 15:42 EDT , Discharge Plan Disposition Disposition: Acute Care Hospital [facility] Discharge Date/Time: 12/08/23 18:23
[2023-12-08 15:20] LABS: Absolute Lymphocyte Count 0.18 X10^3/uL (0.83-4.51); Absolute Neutrophil Count 15.9 X10^3/uL (2.0-7.7); Basophil# 0.02 X10^3/uL; Basophil% 0.1 % (0-1); Hematocrit 33.1 % (37-47); Hemoglobin 10.6 g/dL (12.0-15.0); Lymphocyte # 0.18 X10^3/ul (0.83-4.51); Lymphocyte % 1.1 % (19-41); Mean Corpuscular Hgb 24.6 pg (27.0-32.0); Mean Corpuscular Volume 76.8 fL (81-99); Mean Platelet Vol. 9.9 fl (6.2-12.0); Monocyte# 0.78 X10^3/uL; Monocyte% 4.6 % (0-10); NRBC Flagged by Analyzer 0 % (0-5); Neutrophil # 15.87 X10^3/uL (2.7-7.7); Neutrophil % 93.3 % (47-70); POSITIVE DIFFERENTIAL YES; Platelet Count 313 K/mm3 (150-450); RBC Distribution Width SD 52.6 fl (35.1-43.9); Red Blood Count 4.31 M/mm3 (4.2-5.4)
--- NOTE | 2023-12-08 15:25 | RAD_ITS ---
STUDY: X-RAY CHEST REASON FOR EXAM: Female, 63 years old. Cough TECHNIQUE: PA and lateral views of the chest. COMPARISON: Comparison is made with prior chest radiograph dated November 13, 2016. FINDINGS: A right-sided Port-A-Cath is seen with the tip in the midportion of the superior vena cava. EKG electrodes are seen. There is evidence of a right upper lobe consolidation. There is no demonstrated pleural abnormality. Normal size heart. Prominence of the right paratracheal region. Adenopathy should be ruled out. Normal visualized pulmonary arteries. There is atherosclerotic calcification of the aortic arch with tortuosity. There are diffuse degenerative changes of the visualized thoracic spine. Normal visualized ribs, clavicles, and shoulders. There is no demonstrated abnormality of the visualized soft tissue structures of the upper abdomen. RAD/Chest PA and Lateral IMPRESSION: Right upper lobe consolidation. Electronically Signed: Martin Alberto MD at 15:42 EDT ,
[2023-12-08 15:44] LABS: ALB/GLOB Ratio 0.7 RATIO (0.9-2.4); AST(SGOT) 32 U/L (15-37); Alanine Aminotransfer ALT/SGPT 24 U/L (13-56); Albumin, Serum 2.6 g/dL (3.2-5.0); Alkaline Phosphatase 80 U/L (45-117); Anion Gap 8 (5-15); BUN 19 mg/dL (7-18); BUN/Creat Ratio 17.9 RATIO (10-20); Calcium,Total 8.8 mg/dL (8.5-10.1); Chloride 105 mmol/L (98-107); Creatinine, Serum 1.06 mg/dL (0.55-1.02); EST Glomerular Filtration Rate 56 mL/min (>60); Est Glom Filt Rate - Afr Amer 67 mL/min (>60); Estimated Creatinine Clearance 54.59 ml/min; Globulin 3.5 g/dL (2.2-4.2); Glucose 178 mg/dL (74-106); Potassium 3.6 mmol/L (3.5-5.1); Protein, Total 6.1 g/dL (6.4-8.2); Sodium Level 135 mmol/L (136-145)
[2023-12-08 16:04] LABS: BNP,B-Type NATRIURETIC PEPTIDE 938.1 pg/mL (0-100)
--- NOTE | 2023-12-08 17:02 | NURSING ---
MED SURG OLEE HYPOXIA, PNEUMONIA
[2023-12-08] MEDS: Piperacil/Tazobactam 3.375 GM in 0.9% Normal Saline (50mL MB+) 50 ML IV (17:17)
--- NOTE | 2023-12-08 17:47 | PCM.HP.STD ---
[facility] - General General Date of Admission: 12/08/23 Date of Service: 12/08/23 [facility] Narrative DAREN JACKSON, is a 63 F with history of lymphoma status post chemotherapy and currently in remission and who presents to the hospital today with several months history of cough and several weeks history of shortness of breath. Came to the hospital due to shortness of breath becoming increasingly worse. For the cough, patient has had several courses of antibiotics over the last several months with intermittent improvement and then recurrence. Shortness of breath has been ongoing for several weeks and she has noted wheezing on 1 or 2 occasions. Cough is productive of whitish sputum and is usually worse in the mornings. She does admit to exertional dyspnea and easy fatigability and poor exercise tolerance. Denies any orthopnea paroxysmal nocturnal dyspnea or lower extremity swelling. Patient is a former smoker with a [id number] history who quit 2 years ago when she was diagnosed with lymphoma. She has never been diagnosed with COPD. And she denies any personal history of asthma. Also for the last several days she has had intermittent chills, shakes/rigors and low-grade subjective fevers which also prompted her to come to the hospital to seek medical care. [facility] Medical History (Updated 12/08/23 @ 18:39 by Arcelia Newman) Substance abuse Former smoker Lymphoma Hypertension Degenerative disc disease Osteoarthritis Genital herpes Chronic depressive personality disorder Home Medications ?Medication ?Instructions ?Recorded ?Last Taken ?Type meloxicam 15 mg tablet 15 mg PO DAILY 10/14/21 12/06/23 History pantoprazole 40 mg tablet,delayed 40 mg PO DAILY 10/14/21 12/06/23 History release prednisone 20 mg tablet 60 mg PO DAILY 10/14/21 12/08/23 History albuterol sulfate 90 mcg/actuation 2 puff inhalation Q4H PRN 08/14/23 12/08/23 History aerosol inhaler shortness of breath or wheezing oxybutynin chloride 10 mg 30 mg PO DAILY 12/08/23 12/06/23 History tablet,extended release 24 hr Allergy/AdvReac Type Severity Reaction Status Date / Time celecoxib (From Celebrex) Allergy Itching Verified 10/29/23 13:23 rabbit dander Allergy Other Verified 10/29/23 13:23 Surgical History History of cholecystectomy Social History Smoking Status: Former smoker ROS ROS Narrative Denies any chest pain abdominal pain or nausea vomiting. All other systems reviewed and essentially negative as above in the body of the history. Vital Signs Vital Signs Vital Signs: 12/08/23 14:06 12/08/23 14:06 12/08/23 16:06 Temperature 37.1 C Temperature Source Oral Pulse Rate 88 78 Respiratory Rate 18 16 Respiratory Effort Normal Non-Labored Respiratory Pattern Normal Blood Pressure 136/91 H 122/83 H Blood Pressure Mean 106 96 Pulse Ox 98 93 Oxygen Delivery Method Room Air Room Air 12/08/23 17:00 Temperature 36.8 C Temperature Source Pulse Rate 85 Respiratory Rate 22 H Respiratory Effort Respiratory Pattern Blood Pressure 117/79 Blood Pressure Mean 91 Pulse Ox 92 Oxygen Delivery Method Weight Weight: 90.9 kg Body Mass Index (BMI) 41.8 Physical Exam Narrative General exam. Middle-aged man, obese, mildly ill-appearing and mildly dyspneic HEENT. Oral mucosa moist no pallor or jaundice Neck. Neck is supple. Lungs. Expiratory wheezing bilaterally posteriorly. Overall slightly reduced entry and breath sounds bilaterally as well. Heart. First and second heart sounds with no murmurs Extremities. No pedal edema Abdomen. Soft and full nontender. Obese [employer]. Conscious and alert and oriented x 3. Cranial nerves II to XII grossly intact. Results Medical Records Data Attestation: I reviewed the patient's medical records Lab / Micro Data Attestation: I reviewed the patient's lab results. 12/08/23 15:05 12/08/23 15:05 Labs: Laboratory Results - last 24 hr 12/08/23 15:05: WBC 17.0 H, RBC 4.31, Hgb 10.6 L, Hct 33.1 L, MCV 76.8 L, MCH 24.6 L, MCHC 32.0, RDW Std Deviation 52.6 H, RDW Coeff of Gabby 19.0 H, Plt Count 313, MPV 9.9, Immature Gran % (Auto) 0.900, Neut % (Auto) 93.3 H, Lymph % (Auto) 1.1 L, [place] % (Auto) 4.6, Eos % (Auto) 0.0, Baso % (Auto) 0.1, Absolute Neuts (auto) 15.9 H, Absolute Lymphs (auto) 0.18 L, Nucleated RBC % 0, Sodium 135 L, Potassium 3.6, Chloride 105, Carbon Dioxide 22.0, Anion Gap 8, BUN 19 H, Creatinine 1.06 H, Estim Creat Clear Calc 54.59, Est GFR (MDRD) Af Amer 67, Est GFR (MDRD) Non-Af 56 L, BUN/Creatinine Ratio 17.9, Glucose 178 H, Calcium 8.8, Total Bilirubin 0.60, AST 32, ALT 24, Alkaline Phosphatase 80, B-Natriuretic Peptide 938.1 H, Total Protein 6.1 L, Albumin 2.6 L, Globulin 3.5, Albumin/Globulin Ratio 0.7 L Micro: Microbiology 12/08/23 15:05 Mucosa - Nose SARS-CoV-2, Influenza & RSV (PCR) - Final ABG Data Attestation: I personally reviewed and interpreted this ABG as follows: Imaging Radiology Impression Chest X-Ray 12/08/23 15:25 IMPRESSION: Right upper lobe consolidation. Electronically Signed: Martin Alberto MD at 15:42 EDT , Assessment & Plan Assessment/Plan (1) Shortness of breath: (2) Chronic cough: PLAN: Plan 1. Community-acquired pneumonia. Chest x-ray clearly showing right upper lobar pneumonic infiltrate. Will start patient on IV antibiotic with Rocephin 2 g daily and azithromycin 500 mg daily. 2. Acute hypoxic respiratory failure. Oxygen saturation 84% on presentation. Requiring supplemental oxygen. Suspect secondary to pneumonia on top of hitherto undiagnosed COPD with mild exacerbation. Continue oxygen supplementation to maintain oxygen saturation above 94%. 3. History of chronic cough and shortness of breath and occasional wheezing in a patient with significant smoking history of 40 packs/day and who quit 2 years ago. Suspect undiagnosed underlying COPD with possible exacerbation. Will treat with inhaler bronchodilators and IV steroids with Solu-Medrol 40 mg twice a day. On discharge to be referred for pulmonary function testing and pulmonology follow-up. 4. Leukocytosis versus leukemoid reaction. Patient currently on prednisone and this is the most likely etiology. However I am concerned about the presence of immature granulocytes (myelocytes and metamyelocytes) and blasts in the peripheral blood film. Will need to monitor this for now. 5. Obesity. Lifestyle modification as able. 6. Questionable dysphagia. Barium swallow. 7. Microcytic anemia. Noted baseline hemoglobin of 14 but 10 today. Potentially contributing to shortness of breath. Workup with iron studies and other anemia testing Charges/Coding Visit Charges Inpatient E&M: 38107 Init Hosp L3
--- NOTE | 2023-12-08 18:00 | CT_ITS ---
STUDY: CT CHEST WITHOUT CONTRAST REASON FOR EXAM: Female, 63 years old. Left upper lobe airspace disease RADIATION DOSAGE (If Supplied By Facility): CTDIvol = ( 11.30 ) mGy, DLP = ( 407.15 ) mGycm TECHNIQUE: Transaxial imaging was performed without the administration of intravenous contrast material. Multiplanar coronal and sagittal images were reformatted. Individualized dose optimization techniques were used for this CT. COMPARISON: Chest x-ray FINDINGS: CHEST There is a port on the right extending to the superior vena cava. There are moderate groundglass opacities of the right upper and middle and left upper more than the bilateral lower lobes. There is no demonstrated pleural abnormality. There are calcifications of the coronary arteries. Normal mediastinum. Normal hilar regions. Normal unenhanced pulmonary arteries. There is atherosclerotic calcification of the aortic arch with tortuosity and elongation of the aortic arch and descending thoracic aorta. There are multi-level degenerative changes of the thoracic spine. There is postoperative change of the cervical spine. There is a small hiatal hernia. CT/Chest without Contrast IMPRESSION: Bilateral groundglass infiltrates or edema. Electronically Signed: Melecio Curran MD at 19:01 EDT ,
[2023-12-08] MEDS: Azithromycin 250 MG Tablet 500 MG PO (18:10)
[2023-12-08 18:19] LABS: Platelet Count 322 K/mm3 (150-450); RET-HE 23.1 pg (30-35); Reticulocyte Count 1.79 % (0.5-1.5)
[2023-12-08 18:27] LABS: Erythrocyte Sedimentation Rate 28 mm/hr (0-30)
[2023-12-08 18:31] LABS: Ferritin 316 ng/mL (8-252); Iron 10 ug/dL (50-170); Iron Binding Capacity,Total 236 ug/dL (250-450); PERCENT IRON SATURATION 4.2 % (15.0-55.0)
[2023-12-08 19:00] LABS: Vitamin B12 305 pg/mL (211-911)
[2023-12-08] MEDS: Ipratropium/Albuterol Sulfate 3 ML AMPUL.NEB INHALATION (19:19)
[2023-12-08] MEDS: Ceftriaxone 2 GM in 0.9% Normal Saline (50mL MB+) 50 ML IV (19:56)
[2023-12-09] VITALS (11 sets, daily range): BP systolic 123–137; BP diastolic 72–91; PULSE 72–105; RESP 16–20; TEMP 36.6–36.9; O2SAT 88–96
[2023-12-09] MEDS: Ipratropium/Albuterol Sulfate 3 ML AMPUL.NEB INHALATION ×3 (00:56→13:00)
--- NOTE | 2023-12-09 02:07 | CPS ---
[0056] Incentive spirometer instructed successfully with pt. Pt. politely refuses use of PEP at this time. Pt. does have mucus, but she states that she doesn't have any trouble coughing it out.
[2023-12-09 06:41] LABS: Absolute Lymphocyte Count 0.23 X10^3/uL (0.83-4.51); Absolute Neutrophil Count 16.2 X10^3/uL (2.0-7.7); Basophil# 0.01 X10^3/uL; Basophil% 0.1 % (0-1); Hematocrit 30.1 % (37-47); Hemoglobin 9.4 g/dL (12.0-15.0); Lymphocyte # 0.23 X10^3/ul (0.83-4.51); Lymphocyte % 1.3 % (19-41); Mean Corp Hgb Conc 31.2 g/dL (32-36); Mean Corpuscular Hgb 23.7 pg (27.0-32.0); Monocyte# 0.66 X10^3/uL; Monocyte% 3.8 % (0-10); NRBC Flagged by Analyzer 0 % (0-5); Neutrophil # 16.22 X10^3/uL (2.7-7.7); Neutrophil % 93.9 % (47-70); POSITIVE DIFFERENTIAL YES; Platelet Count 296 K/mm3 (150-450); RBC Distribution Width CV 18.9 % (11.6-14.6); RBC Distribution Width SD 52.6 fl (35.1-43.9); Red Blood Count 3.96 M/mm3 (4.2-5.4); White Blood Count 17.3 K/mm3 (4.4-11.0)
[2023-12-09 07:15] LABS: ALB/GLOB Ratio 0.7 RATIO (0.9-2.4); AST(SGOT) 20 U/L (15-37); Alanine Aminotransfer ALT/SGPT 19 U/L (13-56); Albumin, Serum 2.4 g/dL (3.2-5.0); Alkaline Phosphatase 68 U/L (45-117); Anion Gap 8 (5-15); BUN 16 mg/dL (7-18); BUN/Creat Ratio 18.4 RATIO (10-20); Calcium,Total 8.6 mg/dL (8.5-10.1); Chloride 104 mmol/L (98-107); Creatinine, Serum 0.87 mg/dL (0.55-1.02); EST Glomerular Filtration Rate 70 mL/min (>60); Est Glom Filt Rate - Afr Amer 84 mL/min (>60); Globulin 3.4 g/dL (2.2-4.2); Glucose 139 mg/dL (74-106); Potassium 3.7 mmol/L (3.5-5.1); Protein, Total 5.8 g/dL (6.4-8.2); Sodium Level 134 mmol/L (136-145)
--- NOTE | 2023-12-09 07:31 | PN.HOSP_ITS ---
Reason for Visit Reason for Visit: Diagnoses Chronic cough (12/08/23) Shortness of breath (12/08/23) Subjective Subjective Short of breath with activity. Has been feeling short of breath for about 2 weeks. Objective Data Objective Data Vital Signs: Vital Signs Temp Pulse Resp BP Pulse Ox O2 Del Method O2 Flow Rate 36.9 C 87 18 123/72 H 94 Nasal Cannula 2 12/09/23 05:00 12/09/23 05:00 12/09/23 05:00 12/09/23 05:00 12/09/23 05:00 12/09/23 05:00 12/09/23 05:00 Oxygen Flow Rate (L/min) 2 Oxygen Delivery Method Nasal Cannula Weight: 87.997 kg Body Mass Index (BMI) 40.5 Intake & Output: Intake and Output for Last 24 Hours 12/07/23 12/08/23 12/09/23 23:59 23:59 23:59 Intake Total 100 / 1300 1200 / 1200 Balance 100 / 1300 1200 / 1200 Lab / Micro Data 12/09/23 06:25 12/09/23 06:25 Labs: Laboratory Results - last 24 hr 12/08/23 15:05: WBC 17.0 H, RBC 4.31, Hgb 10.6 L, Hct 33.1 L, MCV 76.8 L, MCH 24.6 L, MCHC 32.0, RDW Std Deviation 52.6 H, RDW Coeff of Gabby 19.0 H, Plt Count 313, MPV 9.9, Immature Gran % (Auto) 0.900, Neut % (Auto) 93.3 H, Lymph % (Auto) 1.1 L, [place] % (Auto) 4.6, Eos % (Auto) 0.0, Baso % (Auto) 0.1, Absolute Neuts (auto) 15.9 H, Absolute Lymphs (auto) 0.18 L, Nucleated RBC % 0, Sodium 135 L, Potassium 3.6, Chloride 105, Carbon Dioxide 22.0, Anion Gap 8, BUN 19 H, C reatinine 1.06 H, Estim Creat Clear Calc 54.59, Est GFR (MDRD) Af Amer 67, Est GFR (MDRD) Non-Af 56 L, BUN/Creatinine Ratio 17.9, Glucose 178 H, Calcium 8.8, I erika 10 L, TIBC 236 L, Iron Saturation 4.2 L, Ferritin 316 H, Total Bilirubin 0.60, AST 32, ALT 24, Alkaline Phosphatase 80, C-React Prot Ext Range 133.00 H, B-Natriuretic Peptide 938.1 H, Total Protein 6.1 L, Albumin 2.6 L, Globulin 3.5, Albumin/Globulin Ratio 0.7 L 12/08/23 18:09: ESR 28, Retic Count 1.79 H, Immature Retic Fraction 15.20, Retic Hgb Equivalent 23.1 L, Vitamin B12 305, Procalcitonin 0.50 H 12/09/23 06:25: WBC 17.3 H, RBC 3.96 L, Hgb 9.4 L, Hct 30.1 L, MCV 76.0 L, MCH 23.7 L, MCHC 31.2 L, RDW Std Deviation 52.6 H, RDW Coeff of Gabby 18.9 H, Plt Count 296, MPV 10.0, Immature Gran % (Auto) 0.900, Neut % (Auto) 93.9 H, Lymph % (Auto) 1.3 L, [place] % (Auto) 3.8, Eos % (Auto) 0.0, Baso % (Auto) 0.1, Absolute Neuts (auto) 16.2 H, Absolute Lymphs (auto) 0.23 L, Nucleated RBC % 0, Sodium 134 L, Potassium 3.7, Chloride 104, Carbon Dioxide 22.0, Anion Gap 8, BUN 16, Creatinine 0.87, Estim Creat Clear Calc 65.30, Est GFR (MDRD) Af Amer 84, Est GFR (MDRD) Non-Af 70, BUN/Creatinine Ratio 18.4, Glucose 139 H, Calcium 8.6, Total Bilirubin 0.40, AST 20, ALT 19, Alkaline Phosphatase 68, Total Protein 5.8 L, Albumin 2.4 L, Globulin 3.4, Albumin/Globulin Ratio 0.7 L Micro: Microbiology 12/09/23 00:20 Stool Stool Occult Blood (AMEYA) - Final 12/08/23 15:05 Mucosa - Nose SARS-CoV-2, Influenza & RSV (PCR) - Final Radiography Diagnostic Testing: Radiology Impression Chest X-Ray 12/08/23 15:25 IMPRESSION: Right upper lobe consolidation. Electronically Signed: Martin Alberto MD at 15:42 EDT , Chest CT 12/08/23 18:00 IMPRESSION: Bilateral groundglass infiltrates or edema. Electronically Signed: Melecio Curran MD at 19:01 EDT , Physical Exam Const alert and no apparent distress HEENT head/scalp atraumatic and moist oral mucous membranes Resp normal respiratory effort and no retractions Resp Narrative: diminished bilaterally. Cardio regular rate, regular rhythm, S1 normal heart sound and S2 normal heart sound GI normal to inspection, nondistended, normoactive bowel sounds, soft to palpation, non-tender and non-distended Extremity normal to inspection General Extremity: Negative for edema Neuro Sensorium / Orientation: awake and alert Assessment & Plan Assessment/Plan (1) Shortness of breath: (2) Chronic cough: PLAN: Plan Suspected pneumococcal pneumonia * CT showed bilateral upper lobe hazy infiltrates. * COVID 19, influenza, RSV negative * Check legionella, strep, SCx * PEP * abx with strep and legionella. Acute hypoxic respiratory failure * Oxygen saturation 84% on presentation. * Concern for underlying COPD. Started on bronchodilators and methylprednisolone. Leukocytosis * 17,000 upon arrival, 17.3 today. Likely complicated by steroid use. White count was also noted to be 16.6 back in September 27. Last available white count we have in [facility] was 7.1 from November 13, 2016. * Will monitor Possible oropharyngeal dysphagia * Speech therapy * Modified barium swallow Iron deficiency anemia * Iron low at 10, ferritin though elevated at 316. B12 was normal. * Check folate and TSH. * Start ferrous sulfate every other day Chronic conditions * Obesity class III. Weight loss advised. VTE prophylaxis with enoxaparin Charges/Coding Visit Charges Inpatient E&M: 66450 Subs Hosp L2
[2023-12-09 08:28] LABS: Thyroid Stim Hormone (TSH) 0.63 uIU/mL (0.358-3.74)
[2023-12-09] MEDS: Ceftriaxone 2 GM in 0.9% Normal Saline (50mL MB+) 50 ML IV (10:20)
[2023-12-09] MEDS: Enoxaparin 40 MG/0.4 ML Syringe SC (10:21)
[2023-12-09] MEDS: Pantoprazole Sodium 40 MG Tablet PO (10:21)
[2023-12-09] MEDS: Tolterodine Tartrate 4 MG CAP.SA PO (10:21)
[2023-12-09] MEDS: Azithromycin 250 MG Tablet 500 MG PO (10:21)
--- NOTE | 2023-12-09 12:58 | CASEMGMT ---
PING PATTON Assessment Face to Face with patient for initial transition planning/care coordination assessment. PING PATTON introduced self and role at [facility], pt voices understanding. Pt is A&Ox4 and is resting comfortably in the chair and is calm. Pt daughter at bedside. Care providers, pharmacy, and demographics verified. Admitting dx: Pneumonia PCP: Dandre Lee Specialists: Leslee (Oncology) Preferred Pharmacy: [facility] Insurance: [employer] Prescription Benefit: Yes LNOK: Sanam Martinez (Daughter) Living Arrangements: Pt lives with her SO in a single story home with 4 steps to enter. Pt daughter lives next door. ADLs/IADLs: Ind Transportation: Self, SO, Daughter DME: [facility]. BP Cuff. Pt is currently 94% on 2L of additional oxygen. A verbal list of local in-network DME companies provided to the pt at this time. Pt prefers [employer] for potential home going oxygen needs. Pt educated about pulse ox purchasing options. HHC/SNF: Denies history or needs. Pt reports history at for PT. Pt?s goal: Home Plan: 6-Click is 24. Pt denies the need for HHC or OP therapy after DC. Pt states that she feels safe and comfortable discharging home once she is medically ready. CM to follow oxygen. CM to follow for safe DC home from [facility]. Kerrie High RN, CM
--- NOTE | 2023-12-09 13:56 | NURSING ---
pt off unit for cookie swallow/barium swallow
--- NOTE | 2023-12-09 14:12 | ST.MBS ---
Modified Barium Swallow Patient Information Study Date: 12/09/23 Study Time: 14:00 Direct Billable Minutes: 81 Total Minutes procedure & reportin Diagnosis: Chronic Cough R05.3; Shortness of Breath R06.02 Referring Physician: Olegario Kothari Reason for Referral: Objectively assess swallow function, assess risk for aspiration, and determine recommendations for least restrictive diet textures and compensatory strategies to improve safety of swallow. Medical History: Pt is a 63 F with history of lymphoma status post chemotherapy (~2 years ago per patient) and currently in remission and who presented to [facility] ED 12/08/23 with several months history of cough and several weeks history of shortness of breath. SOB became increasingly worse, so she presented to the ED. For the cough, patient has had several courses of antibiotics over the last several months with intermittent improvement and then recurrence. Shortness of breath has been ongoing for several weeks and she has noted wheezing on 1 or 2 occasions. Cough is productive of whitish sputum and is usually worse in the mornings. She does admit to exertional dyspnea and easy fatigability and poor exercise tolerance. She was admitted to [facility] and recommended for MBSS to assess risk for aspiration. Pt provided SURGICAL SUPPLY ASSISTANT additional PMH prior to MBSS. Patient reports hx of hiatal hernia and GERD with current heart burn as she hasn't had her GERD medication in 2 days. She reported having EGD in July of 2023, which revealed the hiatal hernia. No other abnormalities per patient report. She was able to eat very little from July to August of 2023 due to severe reflux and vomiting. She was recommended for further work up at [facility], but then her reflux and vomiting subsided so she did not follow through with further work up. She has had PNA 2X in the past month and a half. She reports that certain foods irritate her esophagus and feel caught in her throat or esophagus causing a feeling as if it is eating at her esophagus. She reports having less trouble if she eats slowly and takes small bites. Chest CT 12/08/23 IMPRESSION: Bilateral groundglass infiltrates or edema. PMH: Substance abuse, Former smoker, Lymphoma, HTN, DDD, Osteoarthritis, Genital herpes, Chronic depressive personality disorder. Current Diet Ordered: Regular textures / Thin liquids Dentition: Natural Teeth and Missing Teeth Mental Status: WNL Penetration-Aspiration Scale Penetration-Aspiration Scale: OBJECTIVE ASSESSMENT OF SWALLOW FUNCTION (QUANTITATIVE ? PER TRIAL): PENETRATION / ASPIRATION SCALE (MCGREGOR): 1 = does not enter airway 2 = enters airway/above vocal folds/ejected 3 = enters airway/above vocal folds/not ejected 4 = enters airway/contacts vocal folds/ejected 5 = enters airway/contacts vocal folds/not ejected 6 = enters airway/below vocal folds/ejected 7 = enters airway/below vocal folds/not ejected despite effort 8 = enters airway/below vocal folds/no effort VIDEOFLOROSCOPIC SCALE SCORE (MCGREGOR): Grade I = aspiration of material that has penetrated into the laryngeal vestibule, intact cough reflex Grade II = aspiration < 10 % of the bolus, intact cough reflex Grade III = aspiration of < 10 % of the bolus, reduced cough reflex or aspiration of > 10 % of the bolus, intact cough reflex Grade IV = aspiration of > 10 % of the bolus, reduced cough reflex Penetration-Aspiration Scale Score Thin Liquid via teaspoon: Result: 1= does not enter airway Thin Liquid via teaspoon Trial 2: Result: 1= does not enter airway Thin Liquid via sequential sips: cup: Result: 1= does not enter airway Comment: Esophageal screen - Complete clearance. [place] Thick Liquid via large single sip: cup: Result: 1= does not enter airway Pudding via teaspoon: Result: 1= does not enter airway Comment: Esophageal Screen - Mild retention of pudding residue in upper-mid esophagus. 1/2 Cookie: Result: 1= does not enter airway Comment: Esophageal Screen - Mild retention of cookie residue in mid esophagus, which somewhat cleared with thin liquid wash during the following thin liquid trial with esophageal screen. Thin Liquid via sequential sips:straw: Result: 1= does not enter airway Comment: Esophageal screen - (See cookie trial). Oral Phase Labial Seal: Interlabial escape, no progression to anterior lip Tongue Control During Bolus Hold: Escape to lateral buccal cavity/floor of mouth Bolus Preparation/Mastication: Timely and efficient chewing and mashing Bolus Transport/Lingual Motion: Brisk tongue motion Oral Residue: Residue collection on oral structures (piecemeal deglutition with cookie and pudding (very mild oral residue which cleared with independent second swallow)) Pharyngeal Phase Initiation of Pharyngeal Swallow: Bolus head at posterior laryngeal surgace of epiglottis (large cup sips) Soft Palate Elevation: Trace column of contrast/air between soft palate and pharyngeal wall Laryngeal Elevation: Comp. Superior move thyroid cart w/comp. apprx arytenoid cart-epig pet Anterior Hyoid Excursion: Partial anterior movement Epiglottic Movement: Complete inversion Laryngeal Vestibule Closure at Height of Swallow: Complete; no air/contrast in laryngeal vestibule Pharyngeal Stripping Wave: Present - complete Pharyngoesophageal Segment Opening: Complete distension and complete duration; no obstruction of flow Tongue Base Retraction: Trace column of contrast between tongue base & post. pharyngeal wall Pharyngeal Residue: Trace residue within or on pharyngeal structures Esophageal Phase Esophageal Clearance: Esophageal retention w/ retrograde flow below pharyngoesophageal seg. Diagnosis/Impression Diagnosis: Esophageal dysphagia R13.14 Impression: Oropharyngeal swallow function is grossly WNL. The esophageal phase is primarily marked by... -Mild retention of pudding in upper-mid esophagus. -Mild retention of cookie residue in mid esophagus, which somewhat cleared with thin liquid wash. Recommendations Diet: Regular Textures and Thin Liquids Comment: If sensation of reflux, retention, or regurgitation at meals despite use of strategies, STOP food/drink and resume at a later time. Compensatory Strategies: Small Bites, Small Sips, Slow Rate, Alternate bites/solids and sips/liquids (1:1 ratio), Sitting upright and Remain sitting upright for 30 minutes after PO intake Supervision: Distant Supervision Recommend Repeat Modified Barium Swallow: No Need for Skilled Speech Therapy Services: Yes Comment: Follow 1-2X for education re: strategies to decrease risk for reflux aspiration and to ensure diet tolerance. No ST services recommended at discharge. Recommended Referrals: GI Consult (Outpatient GI consult due to history of hiatal hernia and GERD; mild esophageal phase deficits observed during evaluation today.) Education Completed: 1. Described result of evaluation. and 2. Pt understands evaluation & agrees with goals and treatment plan. Status Active ST Patient: Active Contact Information [facility] Speech Therapy:: Lupis Lopez M.A. CCC-SURGICAL SUPPLY ASSISTANT? Speech-Language Pathologist?? [facility] [address] [place] [address]? [email or web address]?? [phone]
--- NOTE | 2023-12-09 14:17 | CASEMGMT ---
Social Work SW spoke w/pt in room, family present. SW inquired about LW/POA. Pt has not completed the documents and would like to do so while here. SW explained will come back later this afternoon. SW did go back, pt is now out of the room, SW will check back as time allows today or tomorrow to assist pt with POA documents. SIMONE Disla
--- NOTE | 2023-12-09 15:38 | CASEMGMT ---
Pt completed POA for healthcare with this SW and GIOVANNI Lincoln. SW gave pt originals and copies, and placed a copy on the chart. Pt states she has completed the living will already. SIMONE Disla
[2023-12-09] MEDS: Ondansetron 4 MG/2 ML Vial IV (19:35)
[2023-12-09] MEDS: Furosemide 40 MG/4 ML Vial IV (21:33)
[2023-12-10] VITALS (11 sets, daily range): BP systolic 111–128; BP diastolic 66–86; PULSE 73–98; RESP 14–18; TEMP 36.5–37.2; O2SAT 84–98
[2023-12-10] MEDS: Ipratropium/Albuterol Sulfate 3 ML AMPUL.NEB INHALATION ×3 (07:08→19:25)
[2023-12-10 07:23] LABS: Absolute Lymphocyte Count 0.52 X10^3/uL (0.83-4.51); Absolute Neutrophil Count 16.7 X10^3/uL (2.0-7.7); Basophil# 0.03 X10^3/uL; Basophil% 0.2 % (0-1); Hematocrit 35.5 % (37-47); Lymphocyte # 0.52 X10^3/ul (0.83-4.51); Lymphocyte % 2.8 % (19-41); Mean Corpuscular Hgb 23.8 pg (27.0-32.0); Mean Corpuscular Volume 76.8 fL (81-99); Mean Platelet Vol. 9.9 fl (6.2-12.0); Monocyte# 0.79 X10^3/uL; Monocyte% 4.3 % (0-10); NRBC Flagged by Analyzer 0.1 % (0-5); Neutrophil % 91.3 % (47-70); POSITIVE DIFFERENTIAL YES; Platelet Count 421 K/mm3 (150-450); RBC Distribution Width CV 18.9 % (11.6-14.6); RBC Distribution Width SD 52.5 fl (35.1-43.9); Red Blood Count 4.62 M/mm3 (4.2-5.4); White Blood Count 18.3 K/mm3 (4.4-11.0)
--- NOTE | 2023-12-10 07:34 | PN.HOSP_ITS ---
Reason for Visit Reason for Visit: Diagnoses Chronic cough (12/08/23) Shortness of breath (12/08/23) Subjective Subjective Placed on oxygen. Objective Data Objective Data Vital Signs: Vital Signs Temp Pulse Resp BP Pulse Ox O2 Del Method O2 Flow Rate 36.5 C L 73 18 121/80 H 96 Nasal Cannula 2 12/10/23 03:01 12/10/23 03:01 12/10/23 03:01 12/10/23 03:01 12/10/23 03:01 12/10/23 05:00 12/10/23 05:00 Oxygen Flow Rate (L/min) 2 Oxygen Delivery Method Nasal Cannula Weight: 88 kg Body Mass Index (BMI) 40.5 Intake & Output: Intake and Output for Last 24 Hours 12/08/23 12/09/23 12/10/23 23:59 23:59 23:59 Intake Total 100 / 1300 2302 / 2502 400 / 400 Balance 100 / 1300 2302 / 2502 400 / 400 Lab / Micro Data 12/10/23 06:59 12/10/23 06:59 Labs: Laboratory Results - last 24 hr 12/09/23 06:25: Folate 3.80, TSH 0.63 Micro: Microbiology 12/09/23 15:08 Urine, Random Legionella Antigen - Final 12/09/23 00:20 Stool Stool Occult Blood (AMEYA) - Final 12/08/23 15:05 Mucosa - Nose SARS-CoV-2, Influenza & RSV (PCR) - Final Physical Exam Const alert and no apparent distress HEENT head/scalp atraumatic and moist oral mucous membranes Resp normal respiratory effort and no retractions Cardio regular rate, regular rhythm, S1 normal heart sound and S2 normal heart sound GI normal to inspection, nondistended, normoactive bowel sounds, soft to palpation, non-tender and non-distended Extremity normal to inspection and full ROM Neuro oriented x3 and CN's II-XII intact bilaterally Sensorium / Orientation: awake and alert Psych affect normal Assessment & Plan Assessment/Plan (1) Shortness of breath: (2) Chronic cough: PLAN: Plan Suspected pneumococcal pneumonia * CT showed bilateral upper lobe hazy infiltrates. * COVID 19, influenza, RSV negative * SCx pending. Strep and legionella negative. * PEP * abx with CTX Acute hypoxic respiratory insufficiency * Oxygen saturation 84% on presentation. Further analysis, would not qualify this as respiratory failure as patient did not require much in the way of oxygen for recovery. * Concern for underlying COPD. Started on bronchodilators and methylprednisolone. * There is concern about heart failure though clinically patient did not have heart failure. Patient did receive a dose of IV furosemide because her BNP was elevated but that did not seem to have any effect. I suspect her respiratory issues are related with her bilateral upper lobe pneumonia. * Patient require 3 L of oxygen with activity but was requiring a prolonged period of time to recover. Leukocytosis * 17,000 upon arrival, 17.3 12/08. Likely complicated by steroid use. White count was also noted to be 16.6 back in September 27. Last available white count we have in [facility] was 7.1 from November 13, 2016. * Will monitor Esophageal dysphagia * Speech therapy evaluated and patient had a modified barium swallow. Diagnosis of esophageal dysphagia. * Diet recommendations is for regular textures and thin liquids. * I do not feel that her esophageal dysphagia is related with her bilateral upper lobe infiltrates. Iron deficiency anemia * Iron low at 10, ferritin though elevated at 316. B12 was normal. * Check folate and TSH. * Start ferrous sulfate every other day Chronic conditions * Obesity class III. Weight loss advised. VTE prophylaxis with enoxaparin Charges/Coding Visit Charges Inpatient E&M: 31301 Subs Hosp L2
[2023-12-10 08:37] LABS: ALB/GLOB Ratio 0.7 RATIO (0.9-2.4); AST(SGOT) 33 U/L (15-37); Alanine Aminotransfer ALT/SGPT 39 U/L (13-56); Albumin, Serum 2.8 g/dL (3.2-5.0); Alkaline Phosphatase 73 U/L (45-117); Anion Gap 12 (5-15); BUN 18 mg/dL (7-18); Calcium,Total 9.4 mg/dL (8.5-10.1); Chloride 102 mmol/L (98-107); EST Glomerular Filtration Rate 59 mL/min (>60); Est Glom Filt Rate - Afr Amer 72 mL/min (>60); Estimated Creatinine Clearance 56.81 ml/min; Glucose 147 mg/dL (74-106); Potassium 3.9 mmol/L (3.5-5.1); Protein, Total 6.8 g/dL (6.4-8.2); Sodium Level 135 mmol/L (136-145)
[2023-12-10] MEDS: Tolterodine Tartrate 4 MG CAP.SA PO (10:16)
[2023-12-10] MEDS: Azithromycin 250 MG Tablet 500 MG PO (10:16)
[2023-12-10] MEDS: Enoxaparin 40 MG/0.4 ML Syringe SC (10:17)
[2023-12-10] MEDS: Pantoprazole Sodium 40 MG Tablet PO (10:17)
[2023-12-10] MEDS: 0.9 % NaCl (Sterile) Posiflush 10 mL IV ×2 (10:22→14:59)
[2023-12-10] MEDS: Ceftriaxone 2 GM in 0.9% Normal Saline (50mL MB+) 50 ML IV (11:37)
[2023-12-10 16:10] LABS: Cytoplasmic Ab (C-ANCA) <1:20 titer (Neg:<1:20); Perinuclear Ab (P-ANCA) <1:20 titer (Neg:<1:20)
[2023-12-11] VITALS (8 sets, daily range): BP systolic 119–132; BP diastolic 85–89; PULSE 67–90; RESP 16–18; TEMP 36.4–36.8; O2SAT 82–99
[2023-12-11] MEDS: Ipratropium/Albuterol Sulfate 3 ML AMPUL.NEB INHALATION ×2 (00:50→06:44)
[2023-12-11 06:39] LABS: Basophil# 0.02 X10^3/uL; Basophil% 0.2 % (0-1); Hematocrit 30.5 % (37-47); Hemoglobin 9.7 g/dL (12.0-15.0); Lymphocyte % 1.7 % (19-41); Mean Corp Hgb Conc 31.8 g/dL (32-36); Mean Corpuscular Hgb 24.4 pg (27.0-32.0); Mean Corpuscular Volume 76.6 fL (81-99); Monocyte# 0.55 X10^3/uL; Monocyte% 4.6 % (0-10); NRBC Flagged by Analyzer 0 % (0-5); Neutrophil # 11.01 X10^3/uL (2.7-7.7); Neutrophil % 92.2 % (47-70); POSITIVE DIFFERENTIAL YES; Platelet Count 314 K/mm3 (150-450); RBC Distribution Width CV 18.7 % (11.6-14.6); RBC Distribution Width SD 51.5 fl (35.1-43.9); Red Blood Count 3.98 M/mm3 (4.2-5.4); White Blood Count 11.9 K/mm3 (4.4-11.0)
--- NOTE | 2023-12-11 06:58 | PN.HOSP_ITS ---
Reason for Visit Reason for Visit: Diagnoses Chronic cough (12/08/23) Shortness of breath (12/08/23) Subjective Subjective Breathing better. Walked around the hospital floor this morning and felt better but though did get tired towards the end. States that it did not take her long to recover. Objective Data Objective Data Vital Signs: Vital Signs Temp Pulse Resp BP Pulse Ox O2 Del Method O2 Flow Rate 36.4 C L 88 18 119/86 H 99 Nasal Cannula 2 12/11/23 05:40 12/11/23 05:40 12/11/23 05:40 12/11/23 05:40 12/11/23 05:44 12/11/23 05:44 12/11/23 05:44 Oxygen Flow Rate (L/min) [ 3 AMBULATING with Oxygen #3] Oxygen Flow Rate (L/min) [ 2 AMBULATING with Oxygen #2] Oxygen Flow Rate (L/min) [ 1 AMBULATING with Oxygen #1] Oxygen Flow Rate (L/min) [At 1 REST with Oxygen] Oxygen Flow Rate (L/min) [At 0 REST on Room Air] Oxygen Flow Rate (L/min) 2 Oxygen Delivery Method Nasal Cannula Weight: 88 kg Body Mass Index (BMI) 40.5 Intake & Output: Intake and Output for Last 24 Hours 12/09/23 12/10/23 12/11/23 23:59 23:59 23:59 Intake Total 2302 / 2502 1050 / 1250 300 / 300 Balance 2302 / 2502 1050 / 1250 300 / 300 Lab / Micro Data 12/11/23 06:26 12/11/23 06:26 Labs: Laboratory Results - last 24 hr 12/08/23 18:09: c-ANCA Antibody <1:20, Atypical p-ANCA <1:20, p-ANCA Antibody <1:20 12/10/23 06:59: WBC 18.3 H, RBC 4.62, Hgb 11.0 L, Hct 35.5 L, MCV 76.8 L, MCH 23.8 L, MCHC 31.0 L, RDW Std Deviation 52.5 H, RDW Coeff of Gabby 18.9 H, Plt Count 421, MPV 9.9, Immature Gran % (Auto) 1.400 H, Neut % (Auto) 91.3 H, Lymph % (Auto) 2.8 L, [place] % (Auto) 4.3, Eos % (Auto) 0.0, Baso % (Auto) 0.2, Absolute Neuts (auto) 16.7 H, Absolute Lymphs (auto) 0.52 L, Nucleated RBC % 0.1, Sodium 135 L, Potassium 3.9, Chloride 102, Carbon Dioxide 21.0, Anion Gap 12, BUN 18, Creatinine 1.00, Estim Creat Clear Calc 56.81, Est GFR (MDRD) Af Amer 72, Est GFR (MDRD) Non-Af 59 L, BUN/Creatinine Ratio 18.0, Glucose 147 H, Calcium 9.4, Total Bilirubin 0.40, AST 33, ALT 39, Alkaline Phosphatase 73, Total Protein 6.8, Albumin 2.8 L, Globulin 4.0, Albumin/Globulin Ratio 0.7 L 12/11/23 06:26: WBC 11.9 H, RBC 3.98 L, Hgb 9.7 L, Hct 30.5 L, MCV 76.6 L, MCH 24.4 L, MCHC 31.8 L, RDW Std Deviation 51.5 H, RDW Coeff of Gabby 18.7 H, Plt Count 314, MPV 10.0, Immature Gran % (Auto) 1.300 H, Neut % (Auto) 92.2 H, Lymph % (Auto) 1.7 L, [place] % (Auto) 4.6, Eos % (Auto) 0.0, Baso % (Auto) 0.2, Absolute Neuts (auto) 11.0 H, Absolute Lymphs (auto) 0.20 L, Nucleated RBC % 0 Micro: Microbiology 12/09/23 14:00 Sputum, Expectorated/Coughed Gram Stain - Final 12/09/23 15:08 Urine, Random Legionella Antigen - Final 12/10/23 06:45 Urine, Random Streptococcus pneumoniae Antigen (M - Final 12/09/23 00:20 Stool Stool Occult Blood (AMEYA) - Final 12/08/23 15:05 Mucosa - Nose SARS-CoV-2, Influenza & RSV (PCR) - Final Physical Exam Const alert and no apparent distress HEENT head/scalp atraumatic and moist oral mucous membranes Neck no JVD Resp normal respiratory effort and no retractions Cardio regular rate, regular rhythm, S1 normal heart sound and S2 normal heart sound GI normal to inspection, nondistended, normoactive bowel sounds and soft to palpation Assessment & Plan Assessment/Plan (1) Shortness of breath: (2) Chronic cough: PLAN: Plan Suspected pneumococcal pneumonia * CT showed bilateral upper lobe hazy infiltrates. * COVID 19, influenza, RSV negative * SCx pending. Strep and legionella negative. * PEP * Have been on antibiotics with ceftriaxone azithromycin. Will change to levofloxacin. * Encourage patient to continue using senna spirometer as well as Acapella valve. Will also add patient on guaifenesin. Acute hypoxic respiratory insufficiency * Oxygen saturation 84% on presentation. Further analysis, would not qualify this as respiratory failure as patient did not require much in the way of oxygen for recovery. * Concern for underlying COPD. Started on bronchodilators and methylprednisolone. * There is concern about heart failure though clinically patient did not have heart failure. Patient did receive a dose of IV furosemide because her BNP was elevated but that did not seem to have any effect. I suspect her respiratory issues are related with her bilateral upper lobe pneumonia. * Patient required 4 L of oxygen to maintain a sat of 91% with ambulation. Require 2 L at rest. * Oxygen testing reviewed and patient is ambulatory in home and in the community and requires home oxygen with portability. Leukocytosis * improving. 17,000 upon arrival, then went up to 18.3. Likely complicated by steroid use. White count was also noted to be 16.6 back in September 27. Last available white count we have in [facility] was 7.1 from November 13, 2016. * Will monitor Esophageal dysphagia * Speech therapy evaluated and patient had a modified barium swallow. Diagnosis of esophageal dysphagia. * Diet recommendations is for regular textures and thin liquids. * I do not feel that her esophageal dysphagia is related with her bilateral upper lobe infiltrates. Iron deficiency anemia * Iron low at 10, ferritin though elevated at 316. B12 was normal. Folate, TSH pending. * Start ferrous sulfate every other day Chronic conditions * Obesity class III. Weight loss advised. VTE prophylaxis with enoxaparin Discharge home
[2023-12-11 07:08] LABS: Anion Gap 8 (5-15); BUN 20 mg/dL (7-18); BUN/Creat Ratio 25.7 RATIO (10-20); Chloride 103 mmol/L (98-107); Creatinine, Serum 0.78 mg/dL (0.55-1.02); EST Glomerular Filtration Rate 79 mL/min (>60); Est Glom Filt Rate - Afr Amer 96 mL/min (>60); Estimated Creatinine Clearance 72.84 ml/min; Glucose 169 mg/dL (74-106); Potassium 4.5 mmol/L (3.5-5.1); Sodium Level 134 mmol/L (136-145)
[2023-12-11] MEDS: Ferrous Sulfate 325 MG Tablet PO (08:09)
--- NOTE | 2023-12-11 09:20 | DS.PCM_ITS ---
Providers Date of Admission: 12/08/23 Primary Care Physician: Dr. Dandre Lee MD Reason For Visit: PNEUMONIA Diagnosis Discharge Diagnosis (1) Shortness of breath: Status: Acute Code(s): R06.02 - Shortness of breath (2) Chronic cough: Status: Chronic Code(s): R05.3 - Chronic cough Plan Suspected pneumococcal pneumonia * CT showed bilateral upper lobe hazy infiltrates. * COVID 19, influenza, RSV negative * SCx pending. Strep and legionella negative. * PEP * Have been on antibiotics with ceftriaxone azithromycin. Will change to levofloxacin. * Encourage patient to continue using senna spirometer as well as Acapella valve. Will also add patient on guaifenesin. Acute hypoxic respiratory insufficiency * Oxygen saturation 84% on presentation. Further analysis, would not qualify this as respiratory failure as patient did not require much in the way of oxygen for recovery. * Concern for underlying COPD. Started on bronchodilators and methylprednisolone. * There is concern about heart failure though clinically patient did not have heart failure. Patient did receive a dose of IV furosemide because her BNP was elevated but that did not seem to have any effect. I suspect her respiratory issues are related with her bilateral upper lobe pneumonia. * Patient required 4 L of oxygen to maintain a sat of 91% with ambulation. Require 2 L at rest. * Oxygen testing reviewed and patient is ambulatory in home and in the community and requires home oxygen with portability. Leukocytosis * improving. 17,000 upon arrival, then went up to 18.3. Likely complicated by steroid use. White count was also noted to be 16.6 back in September 27. Last available white count we have in [facility] was 7.1 from November 13, 2016. * Will monitor Esophageal dysphagia * Speech therapy evaluated and patient had a modified barium swallow. Diagnosis of esophageal dysphagia. * Diet recommendations is for regular textures and thin liquids. * I do not feel that her esophageal dysphagia is related with her bilateral upper lobe infiltrates. Iron deficiency anemia * Iron low at 10, ferritin though elevated at 316. B12 was normal. Folate, TSH pending. * Start ferrous sulfate every other day Chronic conditions * Obesity class III. Weight loss advised. VTE prophylaxis with enoxaparin Discharge home Medications at Discharge Home Medications meloxicam 15 mg tablet 15 mg PO DAILY 10/14/21 pantoprazole 40 mg tablet,delayed release 40 mg PO DAILY 10/14/21 albuterol sulfate 90 mcg/actuation aerosol inhaler 2 puff inhalation Q4H PRN shortness of breath or wheezing 08/14/23 oxybutynin chloride 10 mg tablet,extended release 24 hr 30 mg PO DAILY 12/08/23 ferrous sulfate 325 mg (65 mg iron) tablet (FeroSul) 325 mg PO QODAY@0800 #30 tabs 12/11/23 levofloxacin 500 mg tablet 500 mg PO DAILY #5 tabs 12/11/23 prednisone 20 mg tablet 40 mg (2 x 20 mg) PO DAILY #10 tabs 12/11/23 Hospital Course Operations None Procedures None Summary of Care Provided Minutes Spent on Discharge: 35 Hospital Course: Patient presents with shortness of breath. Patient was found to have bilateral upper lobe infiltrate was hazy in appearance. Viral etiologies were negative. Patient was started on antibiotics with ceftriaxone and azithromycin. Patient also treated for COPD exacerbation with steroids. Overall, patient is doing better though she does require oxygen 2 L at rest and 4 L with activity. Patient is known to pulmonary with Dr. Hernandez with [facility]. Patient expressed frustration in regards to seeing her as she has been referred over to [place] and by [place]. She would prefer to stay here. Patient will be provided list of the pulmonary group here that she may follow-up with she wishes though she is advised that it may take a while to get into see that physician. Patient also was seen by speech therapy and does have esophageal dysmotility but no changes with her diet at this point in time. Patient stated she did try to see Dr. Miranda but the soonest available was in March. Advised patient that she can follow-up with Dr. Miranda or another dialysis equipment technician of her choosing to have this further evaluated as outpatient. Weight / BMI Weight Weight: 88 kg Body Mass Index (BMI) 40.5 ABG / Lab / Microbiology Data 12/11/23 06:26 12/11/23 06:26 Laboratory: Laboratory Results - last 24 hr 12/08/23 18:09: c-ANCA Antibody <1:20, Atypical p-ANCA <1:20, p-ANCA Antibody <1:20 12/11/23 06:26: WBC 11.9 H, RBC 3.98 L, Hgb 9.7 L, Hct 30.5 L, MCV 76.6 L, MCH 24.4 L, MCHC 31.8 L, RDW Std Deviation 51.5 H, RDW Coeff of Gabby 18.7 H, Plt Count 314, MPV 10.0, Immature Gran % (Auto) 1.300 H, Neut % (Auto) 92.2 H, Lymph % (Auto) 1.7 L, Brown % (Auto) 4.6, Eos % (Auto) 0.0, Baso % (Auto) 0.2, Absolute Neuts (auto) 11.0 H, Absolute Lymphs (auto) 0.20 L, Nucleated RBC % 0, Sodium 134 L, Potassium 4.5, Chloride 103, Carbon Dioxide 23.0, Anion Gap 8, BUN 20 H, Creatinine 0.78, Estim Creat Clear Calc 72.84, Est GFR (MDRD) Af Amer 96, Est GFR (MDRD) Non-Af 79, BUN/Creatinine Ratio 25.7 H, Glucose 169 H, Calcium 9.0 Microbiology: Microbiology 12/09/23 14:00 Sputum, Expectorated/Coughed Gram Stain - Final 12/09/23 15:08 Urine, Random Legionella Antigen - Final 12/10/23 06:45 Urine, Random Streptococcus pneumoniae Antigen (M - Final 12/09/23 00:20 Stool Stool Occult Blood (AMEYA) - Final 12/08/23 15:05 Mucosa - Nose SARS-CoV-2, Influenza & RSV (PCR) - Final D/C Instructions Discharge Diet: No restrictions Meaningful Use Info Meaningful Use Meaningful Use Diagnoses (Choose all that apply): None applicable Ischemic Stroke Statin Dosing Therapy Reference: STATIN DOSE THERAPY REFERENCE: * Patients > 75 years receive moderate or high dose statin therapy. * Patients 75 years or YOUNGER should receive HIGH intensity statin dose unless contraindicated. You will be required to document reason for non-treatment if statin daily dose does not meet guidelines. HIGH DOSE STATIN THERAPY DAILY Atorvastatin > than or = to 40 mg Rosuvastatin > than or = to 20 mg Amlodipine + Atorvastatin > than or = to 2.5/40 mg Ezetimibe + Simvastatin 10/80 mg Simvastatin 80mg Discharge Plan Admission Admit Date/Time: 12/08/23 17:37 Primary Reason for Your Visit: Pneumonia Attending Provider: Darrell Carreon Primary Care Provider: Dandre Lee Consulting Providers: Olegario Kothari Instructions Additional Instructions / Restrictions: You have been treated for pneumonia while here in the hospital. He been on antibiotics. Will discharge you with levofloxacin, which is an antibiotic, please take that until completed. Unfortunately you do need oxygen with rest and activity. You are welcome to get your own pulse oximeter which are very easily obtained any drugstore. But when you follow-up with your primary care doctor, he or she will determine if you need to continue to be on oxygen moving forward. If you are feeling worse with worsening shortness of breath, increased sputum production, notify your physician or return to the emergency room. And if you are able to get a pulse oximeter and it is noted that your oxygen is continuously running low, less than 90%, notify your physician or return to the emergency room. Discharge Orders/Prescriptions Prescriptions: New ferrous sulfate [FeroSul] 325 mg (65 mg iron) Tablet 325 mg PO QODAY@0800 Qty: 30 0RF levofloxacin 500 mg tablet 500 mg PO DAILY Qty: 5 0RF prednisone 20 mg tablet 40 mg PO DAILY Qty: 10 0RF Continued albuterol sulfate 90 mcg/actuation HFA aerosol inhaler 2 puff inhalation Q4H PRN (Reason: shortness of breath or wheezing) meloxicam 15 mg tablet 15 mg PO DAILY pantoprazole 40 mg tablet,delayed release (DR/EC) 40 mg PO DAILY oxybutynin chloride 10 mg tablet extended release 24hr 30 mg PO DAILY Discontinued prednisone 20 mg tablet 60 mg PO DAILY Referrals / Follow Up: [facility] [Provider Group] - Within 1 Month Dandre Lee MD [Primary Care Provider] - Within 2 Weeks Disposition Disposition (needs filled in before D/C Order can be placed): Home, Self Care Charges/Coding Visit Charges Inpatient E&M: 67920 Disch Hosp >30min
--- NOTE | 2023-12-11 10:20 | CASEMGMT ---
PING CM Into pt room, pt sitting up in chair. Delivered portable O2 tank to her room, pt denies any additional home going needs. Pt stated daughter ordered a Pulse Ox for her and pt will have at home. Made referral to [facility] via [facility]port for O2 needs. Portable tank taken from [facility].
[2023-12-11] MEDS: Pantoprazole Sodium 40 MG Tablet PO (10:58)
[2023-12-11] MEDS: Ceftriaxone 2 GM in 0.9% Normal Saline (50mL MB+) 50 ML IV (10:58)
[2023-12-11] MEDS: Tolterodine Tartrate 4 MG CAP.SA PO (10:58)
[2023-12-11] MEDS: Azithromycin 250 MG Tablet 500 MG PO (10:58)
[2023-12-11] MEDS: Enoxaparin 40 MG/0.4 ML Syringe SC (10:59)
[2023-12-11] MEDS: 0.9 % NaCl (Sterile) Posiflush 10 mL IV (12:44)
--- NOTE | 2023-12-11 13:43 | PHA.DC_ITS ---
Pharmacy [facility] Pharm[facility] Service has performed discharge medication reconciliation and counseling for this patient. The patient's discharge medication list was reviewed for discrepancies and discrepancies were resolved. The patient was counseled on the following discharge medications and changes in medications for homegoing were reviewed. 1. LEVAQUIN 2. PREDNISONE 3. FERROUS SULFATE The Reason for Use, instructions for use, and potential side effects were reviewed for all new medications. The patient's questions regarding all of their medications were answered. The patient was able to verbally demonstrate an understanding of their discharge medications. The patient was counselled by Leobardo Chavez PharmD Candidate Medications at Discharge Home Medications meloxicam 15 mg tablet 15 mg PO DAILY 10/14/21 pantoprazole 40 mg tablet,delayed release 40 mg PO DAILY 10/14/21 albuterol sulfate 90 mcg/actuation aerosol inhaler 2 puff inhalation Q4H PRN shortness of breath or wheezing 08/14/23 oxybutynin chloride 10 mg tablet,extended release 24 hr 30 mg PO DAILY 12/08/23 ferrous sulfate 325 mg (65 mg iron) tablet (FeroSul) 325 mg PO QODAY@0800 #30 tabs 12/11/23 levofloxacin 500 mg tablet 500 mg PO DAILY #5 tabs 12/11/23 prednisone 20 mg tablet 40 mg (2 x 20 mg) PO DAILY #10 tabs 12/11/23
== END 2023-12-11 13:24 | disposition home or self-care (01) | DRG 139 ==
LOC: ED 14:47 → MS3 17:54
PROVIDERS: Admitting Provider Internal Medicine; Emergency Provider Student in an Organized Health Care Education/Training Program; PCP Family Medicine
DX: J13 Pneumonia due to Streptococcus pneumoniae (principal); D50.9 Iron deficiency anemia, unspecified; Z68.41 Body mass index [BMI] 40.0-44.9, adult; K21.9 Gastro-esophageal reflux disease without esophagitis; E66.9 Obesity, unspecified; Z87.891 Personal history of nicotine dependence; Z79.51 Long term (current) use of inhaled steroids; Z79.899 Other long term (current) drug therapy
CPT/HCPCS: 36415; 36591; 71046; 71250; 74230; 80048; 80053; 82274; 82607; 82728; 82746; 83540; 83550; 83880; 84145; 84443; 85025; 85045; 85652; 86140; 86256; 87070; 87205; 87449; 87631; 92611; 94640; 94668; 97802; 99284; J7040; J7050; A4216; J0696; J1940; J2405

== ENCOUNTER → 2024-02-17 | Outpatient (CLI) | payer MEDICAID, SELFPAY ==
[2024-02-22 05:06] LABS: Aspirgillus flavus Negative (Neg:<1:1); Aspirgillus fumigatus Negative (Neg:<1:1); Aspirgillus niger Negative (Neg:<1:1); Immunoglobulin E < 2 IU/mL (6-495)
[2024-02-22 19:07] LABS: Alternaria tenuis <0.10 kU/L (Class 0); Ash, White <0.10 kU/L (Class 0); Aspergillus fumigatus <0.10 kU/L (Class 0); Bermuda Grass <0.10 kU/L (Class 0); Birch <0.10 kU/L (Class 0); Black Walnut <0.10 kU/L (Class 0); Cat Hair / Dander,Stand <0.10 kU/L (Class 0); Cedar, Mountain <0.10 kU/L (Class 0); Cladosporium herbarum <0.10 kU/L (Class 0); Cockroach, American <0.10 kU/L (Class 0); Cottonwood <0.10 kU/L (Class 0); D farinae Mite <0.10 kU/L (Class 0); D pteronyssinus <0.10 kU/L (Class 0); Dog Epithelia <0.10 kU/L (Class 0); Elm, American White <0.10 kU/L (Class 0); Immunoglobulin E < 2 IU/mL (6-495); Maple/Box Elder <0.10 kU/L (Class 0); Mouse Urine <0.10 kU/L (Class 0); Mulberry, White <0.10 kU/L (Class 0); Oak, White <0.10 kU/L (Class 0); Pecan <0.10 kU/L (Class 0); Penicillium Notatum <0.10 kU/L (Class 0); Pigweed, Rough <0.10 kU/L (Class 0); Ragweed, Short/Common <0.10 kU/L (Class 0); Russian Thistle <0.10 kU/L (Class 0); Sheep Sorrel <0.10 kU/L (Class 0); Sycamore, American <0.10 kU/L (Class 0); Timothy Grass <0.10 kU/L (Class 0)
== END | disposition home or self-care (01) ==
PROVIDERS: PCP Family Medicine; Referring Provider Internal Medicine Critical Care Medicine; Visit Provider Internal Medicine Critical Care Medicine
DX: J96.11 Chronic respiratory failure with hypoxia (principal); R93.89 Abnormal findings on diagnostic imaging of other specified body structures; R05.3 Chronic cough
CPT/HCPCS: 36415; 82785; 86003; 86606

== ENCOUNTER → 2024-03-15 | Outpatient (CLI) | payer MEDICAID, SELFPAY ==
--- NOTE | 2024-03-15 15:45 | RAD_ITS ---
STUDY: X-RAY CHEST REASON FOR EXAM: Female, 64 years old. [of breath and cough TECHNIQUE: Frontal and lateral views of the chest. COMPARISON: 12/08/2023. FINDINGS: Right indwelling Mediport catheter seen terminating in the lower SVC. The lungs are clear and expanded. There is no demonstrated pleural abnormality. There is mild cardiac enlargement. Normal mediastinum and faith. Normal visualized pulmonary arteries. Normal visualized aortic arch and descending thoracic aorta. There are diffuse degenerative changes of the visualized thoracic spine. Normal visualized ribs, clavicles, and shoulders. There is no demonstrated abnormality of the visualized soft tissue structures of the upper abdomen. RAD/Chest PA and Lateral IMPRESSION: No definite acute or significant abnormality seen. Electronically Signed: Medhat Mcginnis MD at 17:03 EDT ,
== END | disposition home or self-care (01) ==
PROVIDERS: PCP Family Medicine; Referring Provider Internal Medicine Critical Care Medicine; Visit Provider Internal Medicine Critical Care Medicine
DX: J96.11 Chronic respiratory failure with hypoxia (principal); R93.89 Abnormal findings on diagnostic imaging of other specified body structures
CPT/HCPCS: 71046; 94060; 94726; 94729

== ENCOUNTER → 2024-03-16 | Outpatient (CLI) | payer MEDICAID, SELFPAY ==
--- NOTE | 2024-03-16 12:40 | CT_ITS ---
INDICATION: GGO on prior imaging EXAMINATION: CT CHEST WITHOUT CONTRAST - CT Chest W/O Contrast Injection TECHNIQUE: Helically acquired images were obtained of the chest. The protocol utilizes one or more of the following dose reduction techniques: automated exposure control, adjustment of mA and/or kV according to patient size,and/or use of iterative reconstruction technique. IV Contrast dosage and agent: None. RADIATION DOSAGE (If Supplied By Facility): CTDIvol = ( 15.24 ) mGy, DLP = ( 544.73 ) mGycm COMPARISON: Prior studies dated: Radiograph from 03/15/2024. CT performed 12/08/2023 and 10/14/2021. FINDINGS: LUNGS, PLEURA AND LARGE AIRWAYS: The central airways are patent. Mild diffuse ill-defined groundglass opacity seen in both lower lungs. Compared to the prior CT, the more dense opacities of the upper lobes have resolved. No consolidation. 0.3 cm subpleural right upper lobe nodule on series 2 image 24. This is unchanged since 2021. No pleural effusion or thickening. No pneumothorax. THYROID: No thyroid lesions. HEART AND PERICARDIUM: Heart size is normal. No pericardial effusion. CORONARY ARTERIES: Coronary artery calcification is seen. VESSELS: Thoracic aorta is not dilated. Right chest wall port in place terminating at the mid SVC. MEDIASTINUM AND CANDICE: No mediastinal or hilar adenopathy. Esophagus is unremarkable. Small hiatal hernia. UPPER ABDOMEN: No acute pathology. BONES: No suspicious lytic or blastic abnormality. Multilevel degenerative changes of the spine. Cervical fusion hardware noted. CT/Chest without Contrast IMPRESSION: There is resolution of the prior upper lung groundglass opacity seen on the CT from 12/08/2023. Ill-defined subtle groundglass opacities seen throughout both lower lungs which could be infectious/inflammatory. Unchanged 0.3 cm subpleural right upper lobe nodule suggests benign etiology. Electronically Signed: Pino Jacobs MD at 22:25 EDT ,
[2024-03-16 12:46] VITALS: PULSE 104; PULSE 108; PULSE 116; PULSE 117; PULSE 69; PULSE 74; O2SAT 87; O2SAT 91; O2SAT 92; O2SAT 93; O2SAT 94; O2SAT 97; O2SAT 98
--- NOTE | 2024-03-16 12:50 | CPS ---
Patient wears 2 lpm pulse dose oxygen at home. Started walk on room air, SpO2 87% at the 2nd minute. Applied 2 lpm O2 pulse dose, SpO2 recovered to 97%, was able to finish walk test on 2 lpm pulse dose.
--- NOTE | 2024-03-22 10:50 | PCM.PSN.6M ---
PSN 6 Minute Walk Test 6 Minute Walk Test 6 Minute Walk Test: 6 Minute Walk Test PSN:6-Minute Walk Test Start: 03/16/24 12:46 Freq: Status: Active Protocol: [id number] Document 03/16/24 12:46 MELIZA (Rec: 03/16/24 12:52 MELIZA [id number]) 6 Minute Walk Test Date Performed 03/16/24 Time Performed 12:30 Height 4 ft 10 in Weight: 200 lb Weight in Pounds 200.[address]: Jesús Hernandez Assistive device used: None Pre-test Oxygen Delivery Method Room Air Pulse Ox (%) 97 Pulse Rate (60-100 beats/min) 69 Dyspnea Ronnie Scale (0-10) 0 Exertion Ronnie Scale (6-20) 6 1st minute Oxygen Delivery Method Room Air Pulse Ox (%) 91 Pulse Rate (60-100 beats/min) 104 H 2nd minute Oxygen Delivery Method Room Air Pulse Ox (%) 87 Pulse Rate (60-100 beats/min) 116 H 3rd minute Oxygen Flow Rate (L/min) (L/min) 2 Oxygen Delivery Method Nasal Cannula Pulse Ox (%) 94 Pulse Rate (60-100 beats/min) 108 H 4th minute Oxygen Flow Rate (L/min) (L/min) 2 Oxygen Delivery Method Nasal Cannula Pulse Ox (%) 93 Pulse Rate (60-100 beats/min) 116 H 5th minute Oxygen Flow Rate (L/min) (L/min) 2 Oxygen Delivery Method Nasal Cannula Pulse Ox (%) 92 Pulse Rate (60-100 beats/min) 117 H 6th minute Oxygen Flow Rate (L/min) (L/min) 2 Oxygen Delivery Method Nasal Cannula Pulse Ox (%) 92 Pulse Rate (60-100 beats/min) 117 H Dyspnea Ronnie Scale (0-10) 3 Exertion Ronnie Scale (6-20) 12 Post-test Oxygen Flow Rate (L/min) (L/min) 2 Oxygen Delivery Method Nasal Cannula Pulse Ox (%) 98 Pulse Rate (60-100 beats/min) 74 Full Laps Walked 12 Partial Lap, Number of Tiles Walked 12 Total Distance Walked (ft) 720 03/16/24 12:50 Cardiopulmonary Services by Gilda Bah Patient wears 2 lpm pulse dose oxygen at home. Started walk on room air, SpO2 87% at the 2nd minute. Applied 2 lpm O2 pulse dose, SpO2 recovered to 97%, was able to finish walk test on 2 lpm pulse dose. Initialized on 03/16/24 12:50 - END OF NOTE Interpretation Interpretation: The patient ambulated 720 feet over the course of 6 minutes beginning on room air without assistive devices. Pretesting oxygen saturation was noted to be 97% on room air. With ambulation, the patient desaturated to 87%, requiring 2 L/min of pulse dose supplemental oxygen to maintain appropriate saturations. Recommendations Recommendations: 2 L/min of pulse dose supplemental oxygen should be utilized with exertion.
== END | disposition home or self-care (01) ==
LOC: CT 12:16
PROVIDERS: PCP Family Medicine; Referring Provider Internal Medicine Critical Care Medicine; Visit Provider Internal Medicine Critical Care Medicine
DX: J96.11 Chronic respiratory failure with hypoxia (principal); R93.89 Abnormal findings on diagnostic imaging of other specified body structures
CPT/HCPCS: 71250; 94618

== ENCOUNTER → 2024-11-07 | Outpatient (CLI) | payer MEDICARE, SELFPAY ==
--- NOTE | 2024-11-07 12:54 | CT_ITS ---
PROCEDURE: CHEST WITHOUT CONTRAST 11/07/2024 REASON FOR EXAM: GROUND GLASS BOTH LUNG BASES TECHNIQUE: Chest CT without contrast. Coronal and Sagittal reconstruction series were provided. One or more dose reduction techniques were used (e.g., Automated exposure control, adjustment of the mA and/or kV according to patient size, use of iterative reconstruction technique RADIATION DOSE SUMMARY: CTDlvol: 15.55 mGy DLP: 594.55 mGycm COMPARISON: Comparison is made with prior study dated March 16, 2024. FINDINGS: Hardware: A right-sided port a catheter is seen with the tip in the superior vena cava. Lymph nodes: Small benign-appearing mediastinal lymph nodes. Heart and Vasculature: Coronary artery calcifications are noted. Atherosclerotic calcifications of the thoracic aorta. Thoracic aorta and pulmonary arteries have normal contours; noncontrast technique limits evaluation. Coronary Artery Calcifications: Present Lungs and Airways: There is a new ground-glass appearing nodule in the right upper lobe as seen on axial image number 45 this measures 2.7 cm. Patchy areas of ground-glass appearance seen in the posterior aspect of the right upper lobe adjacent to the right minor fissure as well as patchy ground-glass appearance and airspace disease in the peripheral lateral aspect of the left upper lobe as seen on axial image number 60 this is new as compared to prior study. Focal area of bronchiectasis and ground-glass appearance in the right middle lobe anteriorly as well as in the superior medial aspect of the right lower lobe as well as in the posterior aspect of the right lower lobe. Pleura: Upper Abdomen: Moderate-sized hiatal hernia. Bones: Degenerative changes of the thoracic spine. Increased kyphosis. CT/Chest without Contrast IMPRESSION: Coronary artery calcification (CAC) is is present Progressive ground-glass appearance in both lungs as described. Follow-up nasreen mmended. Reading Location: [id number]
== END | disposition home or self-care (01) ==
LOC: CT 12:54
PROVIDERS: PCP Family Medicine; Referring Provider Nurse Practitioner Acute Care; Visit Provider Nurse Practitioner Acute Care
DX: R93.89 Abnormal findings on diagnostic imaging of other specified body structures (principal)
CPT/HCPCS: 71250

== ENCOUNTER → 2024-12-01 | Outpatient (CLI) | payer MEDICARE, SELFPAY ==
[2024-12-01 13:20] LABS: Rheumatoid Factor < 10.0 IU/mL (<15)
[2024-12-02 11:08] LABS: ANTINUCLEAR ANTIBODIES DIRECT Negative (Negative)
[2024-12-03 15:08] LABS: CCP IgG Antibodies 6 units (0-19); Cytoplasmic Ab (C-ANCA) <1:20 titer (Neg:<1:20); Perinuclear Ab (P-ANCA) <1:20 titer (Neg:<1:20)
== END | disposition home or self-care (01) ==
PROVIDERS: PCP Family Medicine; Referring Provider Internal Medicine Critical Care Medicine; Visit Provider Internal Medicine Critical Care Medicine
DX: R93.89 Abnormal findings on diagnostic imaging of other specified body structures (principal)
CPT/HCPCS: 36415; 86037; 86038; 86200; 86225; 86431

== ENCOUNTER → 2024-12-13 | Outpatient (CLI) | payer MEDICARE, SELFPAY ==
--- NOTE | 2024-12-13 08:30 | PET_ITS ---
PROCEDURE: PET/CT TUMOR BASE -THIGH INIT 12/13/2024 REASON FOR EXAM: 64 y/o F with ABNORMAL FINDINGS IN LUNG FIELD TECHNIQUE: After intravenous injection of 12.6 millicuries of FDG and a standard uptake period, a noncontrast CT scan, followed by a PET scan were acquired along the length of the body from the base of the skull to the mid thighs. The noncontrast helical CT imaging was performed without breath hold, for attenuation correction of PET images and anatomic correlation, but not for primary interpretation, as it is not of the standard diagnostic quality. Images were reviewed in the axial, coronal and sagittal planes. RADIATION DOSE SUMMARY: Effective Dose: Approximately 7 mSv for a standard whole-body PET scan Organ Doses: Varies by organ, with higher doses typically to the bladder, liver, and brain COMPARISON: COMPARISON FROM CT, PET OR OTHER PERTINENT EXAMS: CT chest with contrast, 11/07/2024. FINDINGS: Physiologic uptake: There may be expected metabolic uptake within the brain, tongue and floor of the mouth and larynx/vocal cords, heart, faith (many normal individuals have hilar uptake in less than 3 nodes with mildly avid hilar nodes less than 2.7 SUV), liver and spleen, system, and GI tract and symmetric muscle uptake. FDG AVID AND NON-AVID LESIONS. Reported avid SUV values (g/mL*) are maximum SUV. Head and neck: There is a normal distribution of FDG activity in the visualized brain parenchyma. There is increased activity in the base of the tongue on the right, max SUV 5.7. This is not felt to be clinically significant, but may require observation.. There is increased activity in the area of the left palatine tonsil, max SUV 5.6. Again this is not felt to be clinically significant but may require observation. Chest: There are multiple areas of ground-glass opacity consolidation in both lungs most significantly in the upper lobe of the left lung, max SUV 3.9. There are no pleural effusions. There is cardiomegaly. There is calcific vascular disease of the thoracic aorta and coronary arteries. There is a chemotherapy port in the right upper chest wall with the tip in the superior vena cava via the right internal jugular vein. There is no hypermetabolic mediastinal, hilar or axillary lymphadenopathy. Abdomen and pelvis: There is a hypermetabolic left periaortic lymph node, measuring 2.3 x 1.2 cm, max SUV 9.3. There is a hypermetabolic left periaortic lymph node, measuring 1.5 x 1.3 cm, max SUV 9.3. There is a hypermetabolic mesenteric lymph node, measuring 1.7 x 1.6 cm, max SUV 12.5. There is a hypermetabolic retrocaval lymph node, measuring 15 x 7 mm, max SUV 9.7. There is a hypermetabolic mesenteric lymph node, measuring 3 x 3 mm, max SUV 5.4. There is a 3 x 3 mm hypermetabolic right internal iliac lymph node, max SUV 6.1. There is a hypermetabolic right external iliac lymph node, measuring 1.8 x 1.0 cm, max SUV 8.6. There is a hypermetabolic right external iliac lymph node, measuring 4.3 x 3.1 cm, max SUV 18.9. There are 2 small foci of increased activity in the subcutaneous fat of the right buttock, may represent injection sites. There is a moderate hiatal hernia. There is calcific vascular disease of the abdominal aorta. There is moderate sigmoid diverticulosis without diverticulitis. There is a normal distribution of FDG activity within the gastrointestinal and genitourinary tract. Musculoskeletal: There is a healing fracture of the right 4th rib anteriorly, max SUV 11.0 there are no suspicious hypermetabolic osteolytic or osteosclerotic lesions. Status post multilevel ACDF lower cervical spine. Uptake time: 60 minutes. Hepatic blood pool: Max SUV, 3.4 Blood glucose: 112 BMI: 30.7 PET/PET/CT Tumor Base -Thigh Init IMPRESSION: 1. Multiple enlarged hypermetabolic lymph nodes in the abdomen and pelvis, mos t consistent with non-Hodgkin's lymphoma. 2. Multiple areas of ground-glass opacity consolidation in both lungs, nonspec ific but consistent with pneumonia. 3. Increased activity in the right base of tongue and left palatine tonsil, fe lt to be not clinically significant, but may require further observation. 4. Other findings as noted. Reading Location: [id number]
== END | disposition home or self-care (01) ==
LOC: ONC 08:17
PROVIDERS: PCP Family Medicine; Referring Provider Internal Medicine Critical Care Medicine; Visit Provider Internal Medicine Critical Care Medicine
DX: R91.8 Other nonspecific abnormal finding of lung field (principal)
CPT/HCPCS: 78815; A9552

== ENCOUNTER → 2025-02-13 | Outpatient (CLI) | payer MEDICARE, MEDICAID, SELFPAY ==
--- NOTE | 2025-02-13 13:16 | CT_ITS ---
PROCEDURE: CHEST WITHOUT CONTRAST 02/13/2025 REASON FOR EXAM: BILATERAL GROUND GLASS OPACITY TECHNIQUE: Chest CT without contrast. Coronal and Sagittal reconstruction series were provided. One or more dose reduction techniques were used (e.g., Automated exposure control, adjustment of the mA and/or kV according to patient size, use of iterative reconstruction technique RADIATION DOSE SUMMARY: CTDlvol: 12.85 mGy DLP: 455.84 mGycm COMPARISON: Prior study dated November 07, 2024. FINDINGS: Hardware: A right-sided port a catheter is seen with the tip in the superior vena cava. Lymph nodes: Small benign-appearing bilateral axillary lymph nodes. No significant mediastinal lymph node seen. Heart and Vasculature: The heart is nonenlarged. Atherosclerotic calcifications of the thoracic aorta. Thoracic aorta and pulmonary arteries have normal contours; noncontrast technique limits evaluation. Minimal pericardial thickening along the superior aspect of the pericardium. Coronary Artery Calcifications: Present Lungs and Airways: The previously seen focal area of ground-glass appearance in the superior segment of the right lower lobe as cleared. The previously seen area of ground-glass appearance with the airspace disease in the lateral aspect of the lingular segment of the left upper lobe has improved although residual changes persist. Minimal degree of volume loss. Mild residual increased markings in the anterior aspect of the right middle lobe. Mild increased markings persistent in the posterior medial segment of the right lower lobe although there has been almost complete resolution. Pleura: No pleural effusion. Upper Abdomen: Unremarkable Bones: Degenerative changes of the thoracic spine. CT/Chest without Contrast IMPRESSION: Coronary artery calcification (CAC) is is present Interval improvement of the previously seen areas of ground-glass appearance in both lungs with mild residual changes as described. Reading Location: [id number]
== END | disposition home or self-care (01) ==
LOC: CT 13:15
PROVIDERS: PCP Family Medicine; Referring Provider Nurse Practitioner Family; Visit Provider Nurse Practitioner Family
DX: R93.89 Abnormal findings on diagnostic imaging of other specified body structures (principal)
CPT/HCPCS: 71250

== ENCOUNTER → 2025-03-02 | Outpatient (CLI) | payer MEDICARE, SELFPAY ==
--- NOTE | 2025-03-02 12:12 | NM_ITS ---
PROCEDURE: GASTRIC EMPTYING STUDY 03/02/2025 REASON FOR EXAM: HB History of lymphoma. Gastroesophageal reflux disease. COMPARISON: None TECHNIQUE: Procedure Code: NMGES Modality: NM Procedure: GASTRIC EMPTYING STUDY The patient ingested a standard meal of oatmeal, sulfur colloid and water. There was no vomiting postprandially. Anterior and posterior planar images of the upper abdomen were obtained for 1 minute immediately following the meal at 1h, 2h and 4h if more than 10% of the activity persisted within the stomach. Regions of interest were drawn, and a geometric mean was used to calculate a [id number]. RADIOPHARMACEUTICAL: Sulfur colloid DOSE 1mCi FINDINGS: Percent activity remaining in stomach: 1 hour 35 % (normal 37-90%) NM/Gastric Emptying Study IMPRESSION: Normal gastric emptying. Reading Location: [place] [id number]
== END | disposition home or self-care (01) ==
PROVIDERS: PCP Family Medicine; Referring Provider Internal Medicine Gastroenterology; Visit Provider Internal Medicine Gastroenterology
DX: R12 Heartburn (principal)
CPT/HCPCS: 78264; A9541

== ENCOUNTER 2025-03-10 09:08 | Day surgery (SDC) | payer MEDICARE, MEDICAID, SELFPAY ==
[2025-03-10] MEDS: Lidocaine Jelly 2% 20 ML Syringe (URO-JET) 1 APPLIC ×2 (09:17→09:55)
[2025-03-10 09:20] VITALS: BP 131/86; PULSE 83; RESP 16; TEMP 36.5; O2SAT 100
== END 2025-03-10 09:49 | disposition home or self-care (01) ==
LOC: EN 09:09 → AC 09:11
PROVIDERS: PCP Family Medicine; Referring Provider Family Medicine; Visit Provider Internal Medicine Gastroenterology
PROC: F00ZJWZ Instrumental Swallowing and Oral Function Assessment using Swallowing Equipment (ICD-10-PCS; CPT 43235; principal; 2025-03-10 08:55)
DX: K22.4 Dyskinesia of esophagus (principal)
CPT/HCPCS: 91010

== ENCOUNTER → 2025-03-15 | Outpatient (CLI) | payer MEDICARE, MEDICAID, SELFPAY ==
--- NOTE | 2025-03-15 14:20 | CT_ITS ---
PROCEDURE: ABDOMEN/PELVIS WITH CONTRAST 03/15/2025 REASON FOR EXAM: FOLLICULAR LYMPHOMA TECHNIQUE: Procedure Code: [id number] Modality: CT Procedure: ABDOMEN/PELVIS WITH CONTRAST Coronal and Sagittal reconstruction series were provided. CONTRAST: Isovue 370 VOLUME: 98 mL. One or more dose reduction techniques were used (e.g., Automated exposure control, adjustment of the mA and/or kV according to patient size, use of iterative reconstruction technique. RADIATION DOSE SUMMARY: CTDlvol: 21.49 mGy DLP: 1042.62 mGycm COMPARISON: PET/CT scan December 13, 2024. CT abdomen and pelvis 09/27/2021. FINDINGS: Lung bases: Clear. Liver: Multiple ill-defined hypodense lesions in the liver which are new compared to the CT part of CT PET scan 12/13/2024. The largest is at segment 8 of the liver measures 11 mm. Gallbladder: Not seen and probably surgically resected. No biliary dilation. Spleen: Unremarkable. No splenomegaly. Pancreas: Fatty infiltration. Otherwise unremarkable. Adrenals: Unremarkable. Kidneys: No hydronephrosis or nephrolithiasis. Bladder: Unremarkable. Reproductive Organs: Unremarkable. Bowel: Sigmoid colonic diverticulosis with no evidence of acute diverticulitis. No bowel obstruction. No bowel wall thickening. Appendix: Normal. Lymph nodes: Similar retroperitoneal and mesenteric lymphadenopathy. For example a left para-aortic lymph node measures up to 2.5 by 1.4 cm. Vasculature: No aneurysm. No dissection. Peritoneum / Retroperitoneum: No free air or free fluid. Bones: No acute bony abnormalities. CT/Abdomen/Pelvis WITH Contrast IMPRESSION: Multiple ill-defined hypodense lesions in the liver which are new compared to t he CT part of CT PET scan 12/13/2024. The largest is at segment 8 of the liver measures 11 mm. Similar retroperitoneal and mesenteric lymphadenopathy. For example a left para -aortic lymph node measures up to 2.5 by 1.4 cm. Reading Location: [facility]
== END | disposition home or self-care (01) ==
LOC: CT 14:06
PROVIDERS: PCP Family Medicine; Referring Provider Internal Medicine Hematology & Oncology; Visit Provider Internal Medicine Hematology & Oncology
DX: C82.18 Follicular lymphoma grade II, lymph nodes of multiple sites (principal)
CPT/HCPCS: 74177; Q9967; A4216

== ENCOUNTER 2025-03-29 18:23 | Inpatient (IN) | payer MEDICARE, SELFPAY ==
[2025-03-29] VITALS (8 sets, daily range): BP systolic 96–118; BP diastolic 74–85; PULSE 69–100; RESP 16–20; TEMP 36.4–36.6; O2SAT 96–100; BMI 38.7; BMI 36.6
--- NOTE | 2025-03-29 19:10 | EKG12_ITS ---
Test Reason : DIZZY Blood Pressure : */* mmHG Vent. Rate : 86 BPM Atrial Rate : 86 BPM P-R Int : 212 ms QRS Dur : 94 ms QT Int : 418 ms P-R-T Axes : 23 -39 8 degrees QTcB Int : 500 ms Sinus rhythm with 1st degree A-V block Left axis deviation Abnormal ECG Confirmed by Kadeem Angela ([id number]), manuscript editor KARLOS NGO ([id number]) on 03/31/2025 7:18:32 AM Referred By: Confirmed By: Kadeem Angela
[2025-03-29] MEDS: 0.9% Normal Saline (1000mL) 1,000 ML 1000 ML IV (19:29)
--- NOTE | 2025-03-29 19:32 | EDS_ITS ---
HPI History of Present Illness Chief Complaint: Dizziness Narrative Narrative: Chief complaint and HPI: 65-year-old female with past medical history of lymphoma with previous chemotherapy years ago, HTN presents for evaluation of lightheadedness and nausea. Patient states she has been under a lot of stress lately due to medical problems as well as family issues. States she has not smoked cigarettes in 2 years and today about a pack of cigarettes in which she smoked a half a pack since 11 AM. Patient states while sitting down talking to a family member she became lightheaded with nausea. No room spinning. She received Zofran and fluids via EMS and symptoms and improving. She denies any fever, chills, shortness of breath, chest pain, abdominal pain, dysuria. Review of systems: See HPI Medications: As listed on the chart Allergies: As listed on the chart PFSH: Per chart Vital signs: As listed on the chart. Reviewed. Physical exam: Gen: A&O x3, NAD Head: Normocephalic, atraumatic Eyes: No sclera icterus, conjunctiva clear, PERRL ENT: Moist mucous membranes Neck: Trachea midline, No JVD CV: RRR, no murmurs, no peripheral edema Resp: Lungs CTA BL, no w/r/c GI: Abd soft, non-distended, non-tender, no r/r/g Musc: Full ROM, no deformity, strength equal in all extremities Skin: Warm, dry Neuro: Alert, oriented, grossly intact, sensation intact Psych: Cooperative, appropriate mood and affect [facility] Medical History (Updated 03/29/25 @ 23:[address] Berta Servin MD) CKD (chronic kidney disease), stage II Obesity Hiatal hernia GERD (gastroesophageal reflux disease) History of follicular lymphoma Anxiety and depression Substance abuse Former smoker DDD (degenerative disc disease), lumbar Hypertension Osteoarthritis Genital herpes Hypertension Home Medications ?Medication ?Instructions ?Recorded ?Last Taken ?Type albuterol sulfate 90 mcg/actuation 2 puff inhalation Q 4H PRN 08/14/23 12/08/23 History aerosol inhaler shortness of breath or wheez ing lisinopril 20 1 tab PO QDAY 12/01/24 Unkno wn History mg-hydrochlorothiazide 25 mg tablet oxybutynin chloride 15 mg 30 mg PO QDAY 12/01/24 Unkno wn History tablet,extended release 24 hr sucralfate 1 gram tablet 1 g PO QACHS 02/17/25 Unknow n History vonoprazan 20 mg tablet (Voquezna) 20 mg PO QDAY #30 t abs 03/14/25 Unknown Rx meloxicam 15 mg tablet 15 mg PO DAILY 03/29/25 Unkn own History nystatin 100,000 unit/gram topical 1 applic topical 4X /DAY 03/29/25 Unknown History powder pantoprazole 40 mg tablet,delayed 40 mg PO BID 5 Unknown History release Allergy/AdvReac Type Severity Reaction Status Date / Time celecoxib (From Celebrex) Allergy Itching Verified 12/28/24 14:16 rabbit dander Allergy Other Verified 12/28/24 14:16 Family History Mother Heart disease Diabetes Father Heart disease Diabetes Surgical History History of arthroscopy of left knee History of dilation and curettage History of tonsillectomy and adenoidectomy History of section History of cholecystectomy Social History household members: significant other Smoking Status: Former smoker how long ago did patient quit smoking: Patient smoke-free since 2 years previous, on day of presentation 1/2 pack. second hand exposure: No alcohol intake: former details: Notes no heavy alcohol consumption at least 30 years. substance use type: does not use EXAM Physical Exam Const Vital Signs: 03/29/25 18:23 03/29/25 18:24 03/29/25 19:10 Temperature 97.9 F Temperature Source Oral Pulse Rate 88 Pulse Rate [Lying] 82 Pulse Rate [Sitting (for 1 minute prior to obtaining)] 89 Pulse Rate [Standing (for 1 minute prior to obtaining)] 100 Respiratory Rate 16 Respiratory Effort Normal Respiratory Pattern Normal Blood Pressure 103/74 Blood Pressure [Lying] 110/75 Blood Pressure [Sitting (for 1 minute prior to obtaining)] 118/85 H Blood Pressure [Standing (for 1 minute prior to obtaining)] 96/74 Blood Pressure Mean 83 Blood Pressure Mean [Lying] 86 Blood Pressure Mean [Sitting (for 1 minute prior to obtaining)] 96 Blood Pressure Mean [Standing (for 1 minute prior to obtaining)] 81 Pulse Ox 100 03/29/25 19:23 03/29/25 20:00 03/29/25 21:00 Temperature Temperature Source Pulse Rate 83 Pulse Rate [Lying] Pulse Rate [Sitting (for 1 minute prior to obtaining)] Pulse Rate [Standing (for 1 minute prior to obtaining)] Respiratory Rate 20 H 18 Respiratory Effort Respiratory Pattern Blood Pressure 111/77 101/75 Blood Pressure [Lying] Blood Pressure [Sitting (for 1 minute prior to obtaining)] Blood Pressure [Standing (for 1 minute prior to obtaining)] Blood Pressure Mean 88 83 Blood Pressure Mean [Lying] Blood Pressure Mean [Sitting (for 1 minute prior to obtaining)] Blood Pressure Mean [Standing (for 1 minute prior to obtaining)] Pulse Ox 100 96 03/29/25 21:20 Temperature 97.7 F L Temperature Source Pulse Rate 82 Pulse Rate [Lying] Pulse Rate [Sitting (for 1 minute prior to obtaining)] Pulse Rate [Standing (for 1 minute prior to obtaining)] Respiratory Rate 20 H Respiratory Effort Respiratory Pattern Blood Pressure 101/75 Blood Pressure [Lying] Blood Pressure [Sitting (for 1 minute prior to obtaining)] Blood Pressure [Standing (for 1 minute prior to obtaining)] Blood Pressure Mean 83 Blood Pressure Mean [Lying] Blood Pressure Mean [Sitting (for 1 minute prior to obtaining)] Blood Pressure Mean [Standing (for 1 minute prior to obtaining)] Pulse Ox 98 MDM MDM MDM Narrative Medical decision making narrative: 65-year-old female with past medical history of lymphoma with previous chemotherapy years ago, HTN presents for evaluation of lightheadedness and nausea. Patient states she has been under a lot of stress lately due to medical problems as well as family issues. States she has not smoked cigarettes in 2 years and today about a pack of cigarettes in which she smoked a half a pack sin ce 11 AM. Patient states while sitting down talking to a family member she became lightheaded with nausea. No room spinning. She received Zofran and fluids via EMS and symptoms and improving. On presentation, patient in no acute distress. Vitals are stable however blood pressure little soft at 103/74. Differential diagnosis includes but is not limited to nicotine side effect, electrolyte abnormality, dehydration, arrhythmia, anemia, UTI, suspect less likely ACS or intracranial abnormality. EKG and chest x-ray reviewed see below. Orthostatic vital signs positive. Patient receiving fluids. CBC without leukocytosis or anemia. Platelet count unremarkable. BMP shows dehydration without KAVITA. Patient has hyponatremia of 119 and hypokalemia of 3.2. Patient receiving fluids. Troponin unremarkable. UA positive for ketones but negative for UTI. CT head negative for any acute cranial abnormality. On reevaluation, patient still mildly lightheaded however improved. Lightheadedness may be secondary to mild dehydration as well secondary to hyponatremia. Patient will warrant admission. She was updated of all the results and confirmed understanding of the plan. Hospitalist contacted and accepted admission. EKG: Interpreted by me/EM physician: EKG shows normal sinus rhythm with first-degree AV block. No acute ischemic changes. Heart 86 Diagnostic: Interpreted by me/EM physician: Chest x-ray without pneumonia, effusion, cardiomegaly, pneumothorax. Mild vascular congestion. Radiology in agreement. Impression: 1. Severe hyponatremia 2. Mild hypokalemia 3. Dehydration 4. Lightheadedness 5. Orthostatic hypotension Lab Data Labs: Laboratory Results - last 24 hr 03/29/25 03/29/25 03/29/25 17:40 19:52 20:20 WBC 9.5 RBC 4.79 Hgb 13.5 Hct 37.7 MCV 78.7 L MCH 28.2 MCHC 35.8 RDW Std Deviation 38.4 RDW Coeff of [place] 13.3 Plt Count 325 MPV 10.3 Immature Gran % (Auto) 0.600 Neut % (Auto) 75.5 H Lymph % (Auto) 13.7 L [place] % (Auto) 9.3 Eos % (Auto) 0.4 Baso % (Auto) 0.5 Absolute Neuts (auto) 7.2 Absolute Lymphs (auto) 1.30 Nucleated RBC % 0 Sodium 119 L* Potassium 3.2 L Chloride 83 L Carbon Dioxide 18.5 L Anion Gap 18 H BUN 14 Creatinine 0.93 Estim Creat Clear Calc 58.06 Est GFR (MDRD) Non-Af 68 BUN/Creatinine Ratio 14.6 Glucose 142 H Calcium 9.3 Phosphorus 2.6 L Magnesium 1.5 Troponin T High Sens 10 Troponin T Hi Sens 2 Hr 10 Urine Color Straw Urine Clarity Clear Urine pH 6.5 Ur Specific [place] 1.010 Urine Protein Negative Urine Glucose (UA) Normal Urine Ketones 15 H Urine Occult Blood Negative Urine Nitrite Negative Urine Bilirubin Negative Urine Urobilinogen Normal Ur Leukocyte Esterase Negative Urine RBC 0-5 SEEN Urine WBC 0-5 SEEN Ur Squamous Epith Cells 0-5 SEEN Urine Bacteria 0 SEEN Urine Mucus 0 SEEN Radiography Diagnostic Testing: Clinical Impression(s) from Imaging Studies Brain CT 03/29/25 19:35 IMPRESSION: No acute intracranial abnormality. Reading Location: [facility] Chest X-Ray 03/29/25 19:50 IMPRESSION: No focal consolidations. Mild pulmonary vascular congestion. Reading Location: [facility] Discharge Plan Disposition Disposition: Acute Care Hospital [facility] Discharge Date/Time: 03/29/25 22:42
--- NOTE | 2025-03-29 19:35 | CT_ITS ---
PROCEDURE: CT BRAIN/HEAD WITHOUT CONTRAST 03/29/2025 REASON FOR EXAM: LIGHTHEADED TECHNIQUE: Procedure Code: CTBR Modality: CT Procedure: BRAIN/HEAD WITHOUT CONTRAST Coronal and Sagittal reconstruction series were provided. One or more dose reduction techniques were used (e.g., Automated exposure control, adjustment of the mA and/or kV according to patient size, use of iterative reconstruction technique. RADIATION DOSE SUMMARY: CTDlvol: 44.99 mGy DLP: 779.24 mGycm COMPARISON: None. FINDINGS: No acute intracranial hemorrhage, extra-axial collection, mass effect or evidence of acute infarct. Ventricles and subarachnoid spaces are normal in size. Absent [place] ocular lenses. Intact skull base and calvarium. Well-aerated paranasal sinuses and mastoid air cells. CT/Brain/Head without Contrast IMPRESSION: No acute intracranial abnormality. Reading Location: [id number]
[2025-03-29 19:41] LABS: Hematocrit 37.7 % (37-47); Hemoglobin 13.5 g/dL (12.0-15.0); Immature Granulocytes Count 0.060 X10^3/uL (0.0-0.0); Mean Corp Hgb Conc 35.8 g/dL (32-36); Mean Corpuscular Volume 78.7 fL (81-99); Mean Platelet Vol. 10.3 fl (6.2-12.0); NRBC Flagged by Analyzer 0 % (0-5); Platelet Count 325 K/mm3 (150-450); RBC Distribution Width CV 13.3 % (11.6-14.6); RBC Distribution Width SD 38.4 fl (35.1-43.9); Red Blood Count 4.79 M/mm3 (4.2-5.4); White Blood Count 9.5 K/mm3 (4.4-11.0)
--- NOTE | 2025-03-29 19:50 | RAD_ITS ---
PROCEDURE: CHEST PA AND LATERAL 03/29/2025 REASON FOR EXAM: LIGHTHEADED TECHNIQUE: Procedure Code: RADCXR Modality: DX Procedure: CHEST PA AND LATERAL COMPARISON: 03/15/2024 FINDINGS: Right chest port. Cervical ACDF. Mild pulmonary vascular congestion. No focal consolidation. No pleural effusion or pneumothorax. Cardiac silhouette is stable. No acute fractures. RAD/Chest PA and Lateral IMPRESSION: No focal consolidations. Mild pulmonary vascular congestion. Reading Location: [id number]
[2025-03-29 20:03] LABS: Troponin T High Sensitivity 10 ng/L (<=14)
[2025-03-29 20:26] LABS: Mucous, Urine 0 SEEN /hpf (<or=2+)
[2025-03-29 20:37] LABS: Anion Gap 18 (5-15); BUN 14 mg/dL (4-19); BUN/Creat Ratio 14.6 RATIO (10-20); Calcium,Total 9.3 mg/dL (7.6-11.0); Carbon Dioxide 18.5 mmol/L (21.0-32.0); Chloride 83 mmol/L (98-108); Estimated Creatinine Clearance 58.06 ml/min (50-250); Glucose 142 mg/dL (70-99); Potassium 3.2 mmol/L (3.3-5.1)
[2025-03-29 20:43] LABS: Troponin T High Sens 2 HR 10 ng/L (<=14)
--- NOTE | 2025-03-29 21:22 | HP.PCM.HOS_ITS ---
HPI - General General Date of Admission: 03/29/25 Date of Service: 03/29/25 Chief Complaint: Dizziness, lightheadedness, near syncope. HPI Narrative The patient is a 65 y/o F w/ PMHx: Obesity, Hx follicular lymphoma in remission following with Dr. Camilo, Anxiety and Depression, Tobacco use who presents to the [facility] ED on 03/29/2025 with history of onset lightheadedness, dizziness, nausea even with a seated position with recent significant poor oral intake prompting family to bring patient in for evaluation. Patient has been under significant stress recently secondary to family medical issues. She notes upon evaluation in the ED that she does feel better than initial presentation. She does report that she feels as though she drinks appropriate liquid but has had issues eating secondary to persistent issues with hiatal hernia with upcoming evaluation noted by general surgeon Dr. Chatman. She also notes she has upcoming evaluation with Dr. Camilo to review recent imaging studies. Workup in the ED included T97.9, heart rate 88, BP 103/74, respiratory rate 16, 100% on room air with most recent repeat vitals heart rate 83, BP 111/77, respiratory rate 18, 96% on room air with notable orthostatics, CBC with WC 9.5, [place] 13.5, platelet 325 without marked shift, BMP with sodium 119, potassium 3.2, chloride 83, carbon oxide 18.5, anion gap 18, BUN/creatinine 14/0.93, GFR 68, glucose 142, initial troponin 10 with repeat delta 10, CT of the brain with no acute intracranial abnormality, chest x-ray with no acute cardiopulmonary findings aside from mild pulmonary vascular congestion, urinalysis pending upon request evaluation of patient, EKG with sinus rhythm with first-degree AV block with no acute evidence of ischemia. In the ED patient ministered 1 L normal saline. [facility] Medical History (Updated 03/29/25 @ 23:[address] Berta Servin MD) CKD (chronic kidney disease), stage II Obesity Hiatal hernia GERD (gastroesophageal reflux disease) History of follicular lymphoma Anxiety and depression Substance abuse Former smoker DDD (degenerative disc disease), lumbar Hypertension Osteoarthritis Genital herpes Hypertension Home Medications ?Medication ?Instructions ?Recorded ?Last Taken ?Type albuterol sulfate 90 mcg/actuation 2 puff inhalation Q 4H PRN 08/14/23 12/08/23 History aerosol inhaler shortness of breath or wheez ing lisinopril 20 1 tab PO QDAY 12/01/24 Unkno wn History mg-hydrochlorothiazide 25 mg tablet oxybutynin chloride 15 mg 30 mg PO QDAY 12/01/24 Unkno wn History tablet,extended release 24 hr sucralfate 1 gram tablet 1 g PO QACHS 02/17/25 Unknow n History vonoprazan 20 mg tablet (Voquezna) 20 mg PO QDAY #30 t abs 03/14/25 Unknown Rx meloxicam 15 mg tablet 15 mg PO DAILY 03/29/25 Unkn own History nystatin 100,000 unit/gram topical 1 applic topical 4X /DAY 03/29/25 Unknown History powder pantoprazole 40 mg tablet,delayed 40 mg PO BID 5 Unknown History release Allergy/AdvReac Type Severity Reaction Status Date / Time celecoxib (From Celebrex) Allergy Itching Verified 12/28/24 14:16 rabbit dander Allergy Other Verified 12/28/24 14:16 Family History Mother Heart disease Diabetes Father Heart disease Diabetes Surgical History History of arthroscopy of left knee History of dilation and curettage History of tonsillectomy and adenoidectomy History of section History of cholecystectomy Social History household members: significant other Smoking Status: Former smoker how long ago did patient quit smoking: Patient smoke-free since 2 years previous, on day of presentation 1/2 pack. second hand exposure: No alcohol intake: former details: Notes no heavy alcohol consumption at least 30 years. substance use type: does not use ROS ROS Narrative Admission Review of Systems: CONSTITUTIONAL: No weight loss, fever, chills, + weakness or fatigue. HEENT: + Lightheadedness, dizziness. Eyes: No visual loss, blurred vision, double vision or yellow sclerae. Ears, Nose, Throat: No hearing loss, sneezing, congestion, runny nose or sore throat. SKIN: No rash or itching, lesions, wounds. CARDIOVASCULAR: + Lightheadedness, dizziness, near syncopal sensation. No chest pain, chest pressure or chest discomfort, palpitations, edema, orthopnea. RESPIRATORY: No shortness of breath, cough or sputum, wheezing, hemoptysis. GASTROINTESTINAL: + History of poor intake, nausea. No vomiting or diarrhea, abdominal pain, melena, BRBPR. GENITOURINARY: No dysuria, frequency, urgency or retention. NEUROLOGICAL: + Lightheadedness, dizziness, near syncopal sensation. No headache, paralysis, ataxia, numbness or tingling in the extremities, focal weakness, change in bowel or bladder control, seizure. MUSCULOSKELETAL: + muscle, back pain, joint pain or stiffness. HEMATOLOGIC: No anemia, bleeding or bruising. LYMPHATICS: No enlarged nodes. No history of splenectomy. PSYCHIATRIC: + History of anxiety and depression. ENDOCRINOLOGIC: No reports of sweating, cold or heat intolerance. No polyuria or polydipsia. ALLERGIES: No history of asthma, hives, eczema or rhinitis. Vital Signs Vital Signs Vital Signs: 03/29/25 18:23 03/29/25 18:24 03/29/25 19:10 Temperature 97.9 F Temperature Source Oral Pulse Rate 88 Pulse Rate [Lying] 82 Pulse Rate [Sitting (for 1 minute prior to obtaining)] 89 Pulse Rate [Standing (for 1 minute prior to obtaining)] 100 Respiratory Rate 16 Respiratory Effort Normal Respiratory Pattern Normal Blood Pressure 103/74 Blood Pressure [Lying] 110/75 Blood Pressure [Sitting (for 1 minute prior to obtaining)] 118/85 H Blood Pressure [Standing (for 1 minute prior to obtaining)] 96/74 Blood Pressure Mean 83 Blood Pressure Mean [Lying] 86 Blood Pressure Mean [Sitting (for 1 minute prior to obtaining)] 96 Blood Pressure Mean [Standing (for 1 minute prior to obtaining)] 81 Pulse Ox 100 03/29/25 19:23 03/29/25 20:00 03/29/25 21:00 Temperature Temperature Source Pulse Rate 83 Pulse Rate [Lying] Pulse Rate [Sitting (for 1 minute prior to obtaining)] Pulse Rate [Standing (for 1 minute prior to obtaining)] Respiratory Rate 20 H 18 Respiratory Effort Respiratory Pattern Blood Pressure 111/77 101/75 Blood Pressure [Lying] Blood Pressure [Sitting (for 1 minute prior to obtaining)] Blood Pressure [Standing (for 1 minute prior to obtaining)] Blood Pressure Mean 88 83 Blood Pressure Mean [Lying] Blood Pressure Mean [Sitting (for 1 minute prior to obtaining)] Blood Pressure Mean [Standing (for 1 minute prior to obtaining)] Pulse Ox 100 96 03/29/25 21:20 Temperature 97.7 F L Temperature Source Pulse Rate 82 Pulse Rate [Lying] Pulse Rate [Sitting (for 1 minute prior to obtaining)] Pulse Rate [Standing (for 1 minute prior to obtaining)] Respiratory Rate 20 H Respiratory Effort Respiratory Pattern Blood Pressure 101/75 Blood Pressure [Lying] Blood Pressure [Sitting (for 1 minute prior to obtaining)] Blood Pressure [Standing (for 1 minute prior to obtaining)] Blood Pressure Mean 83 Blood Pressure Mean [Lying] Blood Pressure Mean [Sitting (for 1 minute prior to obtaining)] Blood Pressure Mean [Standing (for 1 minute prior to obtaining)] Pulse Ox 98 Weight Weight: 185 lb 10.067 oz Body Mass Index (BMI) 38.7 Physical Exam Narrative Physical Examination: General: Awake, alert, oriented x 3 and cooperative, seated upright in the ED bed, fatigued, mildly anxious, tearful with discussions. Skin: Normal color, normal turgor, no icterus, no cyanosis except occasional stage ecchymoses, abrasion. HEENT: AT/NC, EOMI, PERRLA, dry MM, no carotid bruits or JVD noted. Lungs: Mildly diminished, greater bases, proper effort, no rales, ronchi or wheezing. Heart: Regular rate and rhythm; no gallop, rub audible. Abdomen: Soft, obese, NTTP, ND, hyperactive BS, no appreciated HSM. Extremities: No cyanosis, no clubbing, no significant distal edema noted. Neurological: Patient awake, alert, oriented as noted cognitive function intact; pupils equally reactive to light and accommodation, cranial nerves grossly normal, moving all 4 extremities, no focal deficits, strength moderately to severely globally decreased secondary to acute presentation complaints. Psychiatric: Affect appears flat, fatigued, tearful with discussions, does have underlying anxiety and depressive history, notes recent significant stress in the family. Results Lab / Micro Data 03/29/25 17:40 03/29/25 17:40 Labs: Laboratory Results - last 24 hr 03/29/25 17:40: WBC 9.5, RBC 4.79, Hgb 13.5, Hct 37.7, MCV 78.7 L, MCH 28.2, MCHC 35.8, RDW Std Deviation 38.4, RDW Coeff of Gabby 13.3, Plt Count 325, MPV 10.3, Immature Gran % (Auto) 0.600, Neut % (Auto) 75.5 H, Lymph % (Auto) 13.7 L, [place] % (Auto) 9.3, Eos % (Auto) 0.4, Baso % (Auto) 0.5, Absolute Neuts (auto) 7.2, Absolute Lymphs (auto) 1.30, Nucleated RBC % 0, Sodium 119 L*, Potassium 3.2 L, Chloride 83 L, Carbon Dioxide 18.5 L, Anion Gap 18 H, BUN 14, Creatinine 0.93, Estim Creat Clear Calc 58.06, Est GFR (MDRD) Non-Af 68, BUN/Creatinine Ratio 14.6, Glucose 142 H, Calcium 9.3, Troponin T High Sens 10 03/29/25 19:52: Troponin T Hi Sens 2 Hr 10 Imaging Radiology Impression Brain CT 03/29/25 19:35 IMPRESSION: No acute intracranial abnormality. Reading Location: [facility] Chest X-Ray 03/29/25 19:50 IMPRESSION: No focal consolidations. Mild pulmonary vascular congestion. Reading Location: [facility] Assessment & Plan Assessment/Plan (1) Near syncope: (2) Acute hyponatremia: (3) Orthostasis: PLAN: Plan The patient is a 65 y/o F w/ PMHx: Obesity, Hx follicular lymphoma in remission following with Dr. Camilo, Anxiety and Depression, Tobacco use who presents to the [facility] ED on 03/29/2025 with history of onset lightheadedness, dizziness, nausea even with a seated position with recent significant poor oral intake prompting family to bring patient in for evaluation. #1. Acute Lightheadedness/Dizziness w/ Near Syncope with Acute Orthostasis secondary to Acute Hyponatremia, hypochloremia primarily suspected to be hypovolemic etiology: Will admit to PCU given significant electrolyte disturbances, will maintain on telemetry monitoring, admission Na 119, chloride 83, baseline appearance primarily mid to low 130 range, suspect secondary to poor intake with significant stressed current lifestyle, will continue to judicious hydration, continue to closely monitor, although again suspect primarily hypovolemic etiology especially given orthostasis to be cautious in the interim will obtain FeNa, Ras, UOsm, TSH, Mag. If repeat a.m. CMP not improving in the direction that would be expected certainly may need to consider nephrology involvement. UA pending. Repeat orthostatics in AM. #2. Hyperglycemia without diabetic history: Admission glucose 142, possibly stress response, hemoglobin A1c requested to be cautious. #3. Hypokalemia: Admission K+ 3.2, magnesium level requested, supplementation given, repeat level in AM. #4. History follicular lymphoma: Following with [facility] Dr. Camilo, noted to be in remission, treated remotely with chemotherapy, did have recent concern for ground glass nodular densities on chest imaging however repeat chest with pulmonary medicine was improved therefore felt likely pneumonia and PAD at that time been treated with antibiotic therapies, noted intention from most recent pulmonary visit 02/24/2025 for follow-up CT chest in 6 months. #5. Chronic Kidney Disease Stage II per GFR trending: Admission BUN/Cr 14/0.93, GFR 68,, baseline renal function primarily 0.7-0.9, repeat BMP in AM. #6. Anxiety and depression: Noted history, per current list does not appear to be on a regimen, encourage continued follow-up outpatient with PCP as previously arranged. #7. Hypertension: Lower blood pressure upon presentation, will hold diuretic therapy given presentation as noted, likely contributing, will continue hydration, as needed IV hydralazine in the interim. #8. Hyperlipidemia: Per current list not on regimen, defer to outpatient. #9. Tobacco Abuse: Encouraged cessation, had been recently tobacco free for 2 years however on day of presentation did smoke cigarettes, inpatient consultation per RT, NR if desired. #10. Obesity: Weight loss and lifestyle changes encouraged. #11. GERD: Will continue patient home PPI, vonoprazan and sucralfate regimen. #12. DVT prophylaxis: Lovenox. #13. CODE status: Patient IRVING is her brother and living will are in place. She does report that her daughter had also been healthcare power of composer teaching artist but she has a preference at this point to not have her daughter make any medical decisions for her. Discussed CODE status at length including difference between FULL code, DNR-CCA and DNR-CC status. Following discussions about the differences in these status, requested DNR-CCA, clarified short-term intubation and she is amenable to this if appropriate short-term only. Advanced Care Planning Face to Face Time: 16 minutes. Charges/Coding Visit Charges Inpatient E&M: 14461 Init Hosp L3 Procedures Hospitalists Procedures: 93693 Advncd Care Plan 30 Min
[2025-03-29 21:25] LABS: Color, Urine Straw (Yellow); Glucose, Dipstick Normal (Normal); Ketone-Dipstick 15 mg/dl (Negative); Leukocyte Esterase-Dipstick Negative /ul (Negative); Nitrite-Dipstick Negative (Negative); Occult Blood-Urine Negative /ul (Negative); Protein-Dipstick Negative (Negative); Specific Gravity, Urine 1.010 (1.002-1.030); Urine Bilirubin Dipstick Negative (Negative)
--- NOTE | 2025-03-29 21:37 | CASEMGMT ---
Care Management Face to Face with patient for initial transition planning/care coordination assessment in the ED.? This news writer introduced self and role at [facility]. Patient alert and oriented. Patient willing to participate in assessment and is able to answer all questions appropriately.? Care providers, pharmacy, and demographics verified. Admitting Diagnosis: Acute hyponatremia Other diagnosis history: Lymphoma, hypertension PCP: ?[facility] Specialists: RODOLFO Camilo oncology ; Friend, Gastro ; David, pulmonology Preferred Pharmacy: [facility] Insurance: ?[employer] Medicare dual Prescription Benefit: ?yes Living Will/HPOA: ?both completed LNOK: ?daughter, but patient states they are not getting along right now Living Arrangements: ?patient lives with significant other, one story home.? Reports to being independent with ADLs and IADLs Transportation: ?patient drives DME: ?blood pressure cuff HHC: ?none SNF/Rehab: ?none Community Resources: ?none Behavioral Health History: ?patient denies but chart indicates Depression. Patient goals: Patient wishes to discharge home. Patient denies any further needs or concerns at this time. Disposition Plan: admission to acute; RN CM/SW to follow for discharge planning needs that may arise. Chana Red, G[employer] STATION SUPERVISOR, [employer]
[2025-03-29 22:12] LABS: Magnesium 1.5 mg/dL (1.5-2.2)
[2025-03-29 22:42] LABS: Red Blood Cells-Urine 0-5 SEEN /hpf (0-5); Squamous Epithelial Cells - UA 0-5 SEEN /hpf (5-10)
[2025-03-30] VITALS (9 sets, daily range): BP systolic 90–123; BP diastolic 65–85; PULSE 60–95; RESP 16–18; TEMP 36.4–36.6; O2SAT 96–99
[2025-03-30] MEDS: 0.9% Normal Saline (1000mL) 1,000 ML 125 ML IV ×2 (00:01→08:13)
[2025-03-30] MEDS: 0.9% Saline Lock 10 ML Syringe IV ×2 (00:07→21:44)
[2025-03-30] MEDS: Potassium Chloride Oral Tablet 20 MEQ 40 MEQ PO (00:07)
[2025-03-30] MEDS: CLARIFY ORDER 1 EACH NOTE ×2 (00:16→13:12)
[2025-03-30] MEDS: 0.9 % NaCl (Sterile) Posiflush 10 mL IV (00:44)
[2025-03-30 01:03] LABS: Troponin T High Sensitivity 10 ng/L (<=14)
[2025-03-30 01:07] LABS: Creatinine, Urine (random) 38.10 mg/dL (28.00-217.00)
[2025-03-30 01:31] LABS: Osmolality, Urine 342 mOsm/KG
[2025-03-30] MEDS: Potassium Phosphate 21 MM in 0.9% Normal Saline (250mL Bag) 250 ML 84 MM IV (01:51)
[2025-03-30 05:57] LABS: Hematocrit 31.1 % (37-47); Hemoglobin 11.2 g/dL (12.0-15.0); Immature Granulocytes Count 0.030 X10^3/uL (0.0-0.0); Mean Corp Hgb Conc 36.0 g/dL (32-36); Mean Corpuscular Volume 78.5 fL (81-99); Mean Platelet Vol. 9.9 fl (6.2-12.0); NRBC Flagged by Analyzer 0 % (0-5); Platelet Count 196 K/mm3 (150-450); RBC Distribution Width CV 13.5 % (11.6-14.6); RBC Distribution Width SD 38.9 fl (35.1-43.9); Red Blood Count 3.96 M/mm3 (4.2-5.4); White Blood Count 5.0 K/mm3 (4.4-11.0)
[2025-03-30 06:21] LABS: AST(SGOT) 26 U/L (<=31); Alanine Aminotransfer ALT/SGPT 16 U/L (<=34); Albumin, Serum 3.5 g/dL (3.4-4.8); Alkaline Phosphatase 74 U/L (35-104); Anion Gap 13 (5-15); BUN 10 mg/dL (4-19); BUN/Creat Ratio 13.2 RATIO (10-20); Calcium,Total 8.3 mg/dL (7.6-11.0); Carbon Dioxide 20.9 mmol/L (21.0-32.0); Chloride 92 mmol/L (98-108); Estimated Creatinine Clearance 66.65 ml/min (50-250); Globulin 2.1 g/dL (2.2-4.2); Glucose 79 mg/dL (70-99); Potassium 4.2 mmol/L (3.3-5.1)
[2025-03-30] MEDS: Tolterodine Tartrate 4 MG CAP.SA PO (08:08)
--- NOTE | 2025-03-30 09:38 | PCM.PN.HOSP ---
Reason for Visit Chief Complaint: Dizziness, lightheadedness, near syncope. Objective Data Objective Data Vital Signs: Vital Signs Temp Pulse Resp BP Pulse Ox O2 Del Method 97.7 F L 77 18 90/65 98 Room Air 03/30/25 07:51 03/30/25 08:00 03/30/25 07:51 03/30/25 08:00 03/30/25 07:51 03/30/25 07:51 Oxygen Delivery Method Room Air Weight: 181 lb 7.047 oz Body Mass Index (BMI) 36.6 Intake & Output: Intake and Output for Last 24 Hours 03/28/25 03/29/25 03/30/25 23:59 23:59 23:59 Intake Total 1750 / 1750 1257 / 1257 Balance 1750 / 1750 1257 / 1257 Lab / Micro Data 03/30/25 05:03 03/30/25 12:32 Labs: Laboratory Results - last 24 hr 03/29/25 17:40: WBC 9.5, RBC 4.79, Hgb 13.5, Hct 37.7, MCV 78.7 L, MCH 28.2, MCHC 35.8, RDW Std Deviation 38.4, RDW Coeff of Gabby 13.3, Plt Count 325, MPV 10.3, Immature Gran % (Auto) 0.600, Neut % (Auto) 75.5 H, Lymph % (Auto) 13.7 L, Tompkins % (Auto) 9.3, Eos % (Auto) 0.4, Baso % (Auto) 0.5, Absolute Neuts (auto) 7.2, Absolute Lymphs (auto) 1.30, Nucleated RBC % 0, Sodium 119 L*, Potassium 3.2 L, Chloride 83 L, Carbon Dioxide 18.5 L, Anion Gap 18 H, BUN 14, Creatinine 0.93, Estim Creat Clear Calc 58.06, Est GFR (MDRD) Non-Af 68, BUN/Creatinine Ratio 14.6, Glucose 142 H, Calcium 9.3, Troponin T High Sens 10 03/29/25 19:52: Phosphorus 2.6 L, Magnesium 1.5, Troponin T Hi Sens 2 Hr 10 03/29/25 20:20: Urine Color Straw, Urine Clarity Clear, Urine pH 6.5, Ur Specific [place] 1.010, Urine Protein Negative, Urine Glucose (UA) Normal, Urine Ketones 15 H, Urine Occult Blood Negative, Urine Nitrite Negative, Urine Bilirubin Negative, Urine Urobilinogen Normal, Ur Leukocyte Esterase Negative, Urine RBC 0-5 SEEN, Urine WBC 0-5 SEEN, Ur Squamous Epith Cells 0-5 SEEN, Urine Bacteria 0 SEEN, Urine Mucus 0 SEEN, Urine Osmolality 342, Ur Random Sodium 100, Urine Creatinine 38.10 03/30/25 00:12: Troponin T High Sens 10 03/30/25 05:03: WBC 5.0, RBC 3.96 L, Hgb 11.2 L, Hct 31.1 L, MCV 78.5 L, MCH 28.3, MCHC 36.0, RDW Std Deviation 38.9, RDW Coeff of Gabby 13.5, Plt Count 196, MPV 9.9, Immature Gran % (Auto) 0.600, Neut % (Auto) 68.0, Lymph % (Auto) 18.1 L, Tompkins % (Auto) 11.9 H, Eos % (Auto) 1.0, Baso % (Auto) 0.4, Absolute Neuts (auto) 3.4, Absolute Lymphs (auto) 0.91, Nucleated RBC % 0, Sodium 126 L, Potassium 4.2, Chloride 92 L, Carbon Dioxide 20.9 L, Anion Gap 13, BUN 10, Creatinine 0.73, Estim Creat Clear Calc 66.65, Est GFR (MDRD) Non-Af 91, BUN/Creatinine Ratio 13.2, Glucose 79, Hemoglobin A1c 5.2, Calcium 8.3, Phosphorus 4.9 H, Total Bilirubin 0.60, AST 26, ALT 16, Alkaline Phosphatase 74, Total Protein 5.6 L, Albumin 3.5, Globulin 2.1 L, Albumin/Globulin Ratio 1.6, TSH 0.956 Radiography Diagnostic Testing: Radiology Impression Brain CT 03/29/25 19:35 IMPRESSION: No acute intracranial abnormality. Reading Location: [facility] Chest X-Ray 03/29/25 19:50 IMPRESSION: No focal consolidations. Mild pulmonary vascular congestion. Reading Location: [facility] Physical Exam Narrative She had last chemotherapy in February 2022. Was dizzy lightheaded yesterday but feels better. She said wants to go home. Serum sodium increased from 119-126. Try to keep sodium 126 Generalized weakness Physical exam. General: Alert, Oriented x3, Cooperative HEENT: Atraumatic, PERRLA, EOMI, Normocephalic. Oral: No Gingival or Mucosal Lesions/ Ulcerations Neck: Supple, No JVD, Negative Carotid Bruits Chest wall/Lungs: Right-sided chest Mediport. Air entry equal in bilateral lung bases. No crepitation/rhonchi Cardiovascular: Regular rate and rhythm, Normal S1,S2, No M/G/R Abdomen: Bowel Sounds Present, Soft, Non Tender, Non-Distended : No dysuria. No renal angle tenderness. No suprapubic tenderness. Extremities: No edema, Capillary Refill Less than 3 Seconds Skin: No rashes, No breakdown Musculoskeletal: No Tenderness to Palpation of Joints or Extremities. Decreased muscle strength of lower extremities Neurological: Cranial nerves II-XII grossly intact, DTR 2+/4. No acute focal neurological deficit. Psych/Mental Status: Normal Affect, Appropriate. Assessment & Plan Assessment/Plan (1) Near syncope: (2) Acute hyponatremia: (3) Orthostasis: PLAN: Plan The patient is a 65 y/o F who was admitted with dizziness/lightheadedness, nausea for 45 minutes prior to arrival. She had a recent significant poor oral intake. w/ PMHx: Obesity, Hx follicular lymphoma in remission following with Dr. Camilo, Anxiety and Depression, Tobacco use who presents to the [facility] ED on 03/29/2025 with history of onset lightheadedness, dizziness, nausea even with a seated position with recent significant poor oral intake prompting family to bring patient in for evaluation. #1. Acute Lightheadedness/Dizziness w/ Near Syncope with Acute Orthostasis secondary to Acute Hyponatremia, hypochloremia primarily suspected to be hypovolemic etiology: Patient is being admitted in PCU. Serum sodium on admission was 119, chloride 83 baseline about 134. Urine osmolality 342, random sodium 100, creatinine 38. No serum osmolarity. Bicarb 18.5, anion gap 18 which looks areas as patient potassium Zerozole 3.2 which should usually hypokalemic alkalosis. BUN/creatinine 14/0.93. 03/30 repeat sodium 126, potassium 4.2, bicarb 20.9, anion gap 13. In ED, orthostatic shows drop in blood pressure 110/75 supine to -96/74 but does not meet more than 20 mm drop in the heart rate went up from 80-100. #2. Hyperglycemia without diabetic history: Admission glucose 142, possibly stress response, hemoglobin A1c 5.2. Diabetes ruled out. #3. Hypokalemia: Admission K+ 3.2, magnesium level requested, supplementation given, repeat level is 4.2. Hypokalemia resolved Hyponatremia: Patient came to ED with serum sodium 119. It increased to 129. It is 10 mEq rise in about 18 hours, less than 24 hours. On D5W ordered to bring down the sodium. #4. History follicular lymphoma: Following with [facility] Dr. Camilo, noted to be in remission, treated remotely with chemotherapy. Most recent pulmonary visit 02/15/2025 and was advised follow-up CT chest in 6 months #6. Anxiety and depression: Noted history, per current list does not appear to be on a regimen, encourage continued follow-up outpatient with PCP as previously arranged. #7. Hypertension: Lower blood pressure upon presentation, will hold diuretic therapy given presentation as noted, likely contributing, will continue hydration, as needed IV hydralazine in the interim. #8. Hyperlipidemia: Per current list not on regimen, defer to outpatient. #9. Tobacco Abuse: Encouraged cessation, had been recently tobacco free for 2 years however on day of presentation did smoke cigarettes, inpatient consultation per RT, NR if desired. #10. Obesity: Weight loss and lifestyle changes encouraged. #11. GERD with possible esophageal dysphagia: Will continue patient home PPI, vonoprazan and sucralfate regimen. She was seen by Jessica Genao NP GI on 03/05/2025. Esophageal manometry was ineffective because of coiling of the manometric catheter. Was referred for surgical evaluation for hiatus hernia repair. Meloxicam was stopped. #12. DVT prophylaxis: Lovenox. #13. CODE status: Patient IRVING is her brother and living will are in place. She does report that her daughter had also been healthcare power of county attorney but she has a preference at this point to not have her daughter make any medical decisions for her. Discussed CODE status at length including difference between FULL code, DNR-CCA and DNR-CC status. Following discussions about the differences in these status, requested DNR-CCA, clarified short-term intubation and she is amenable to this if appropriate short-term only. Laboratory Results 03/29/25 17:40: WBC 9.5, RBC 4.79, Hgb 13.5, Hct 37.7, MCV 78.7 L, MCH 28.2, MCHC 35.8, RDW Std Deviation 38.4, RDW Coeff of Gabby 13.3, Plt Count 325, MPV 10.3, Immature Gran % (Auto) 0.600, Neut % (Auto) 75.5 H, Lymph % (Auto) 13.7 L, Tompkins % (Auto) 9.3, Eos % (Auto) 0.4, Baso % (Auto) 0.5, Absolute Neuts (auto) 7.2, Absolute Lymphs (auto) 1.30, Nucleated RBC % 0, Sodium 119 L*, Potassium 3.2 L, Chloride 83 L, Carbon Dioxide 18.5 L, Anion Gap 18 H, BUN 14, Creatinine 0.93, Estim Creat Clear Calc 58.06, Est GFR (MDRD) Non-Af 68, BUN/Creatinine Ratio 14.6, Glucose 142 H, Calcium 9.3, Troponin T High Sens 10 03/29/25 19:52: Phosphorus 2.6 L, Magnesium 1.5, Troponin T Hi Sens 2 Hr 10 03/29/25 20:20: Urine Color Straw, Urine Clarity Clear, Urine pH 6.5, Ur Specific [place] 1.010, Urine Protein Negative, Urine Glucose (UA) Normal, Urine Ketones 15 H, Urine Occult Blood Negative, Urine Nitrite Negative, Urine Bilirubin Negative, Urine Urobilinogen Normal, Ur Leukocyte Esterase Negative, Urine RBC 0-5 SEEN, Urine WBC 0-5 SEEN, Ur Squamous Epith Cells 0-5 SEEN, Urine Bacteria 0 SEEN, Urine Mucus 0 SEEN, Urine Osmolality 342, Ur Random Sodium 100, Urine Creatinine 38.10 03/30/25 00:12: Serum Osmolality 256 L, Troponin T High Sens 10 03/30/25 05:03: WBC 5.0, RBC 3.96 L, Hgb 11.2 L, Hct 31.1 L, MCV 78.5 L, MCH 28.3, MCHC 36.0, RDW Std Deviation 38.9, RDW Coeff of Gabby 13.5, Plt Count 196, MPV 9.9, Immature Gran % (Auto) 0.600, Neut % (Auto) 68.0, Lymph % (Auto) 18.1 L, Tompkins % (Auto) 11.9 H, Eos % (Auto) 1.0, Baso % (Auto) 0.4, Absolute Neuts (auto) 3.4, Absolute Lymphs (auto) 0.91, Nucleated RBC % 0, Sodium 126 L, Potassium 4.2, Chloride 92 L, Carbon Dioxide 20.9 L, Anion Gap 13, BUN 10, Creatinine 0.73, Estim Creat Clear Calc 66.65, Est GFR (MDRD) Non-Af 91, BUN/Creatinine Ratio 13.2, Glucose 79, Hemoglobin A1c 5.2, Calcium 8.3, Phosphorus 4.9 H, Total Bilirubin 0.60, AST 26, ALT 16, Alkaline Phosphatase 74, Total Protein 5.6 L, Albumin 3.5, Globulin 2.1 L, Albumin/Globulin Ratio 1.6, TSH 0.956 03/30/25 12:32: Sodium 129 L Charges/Coding Visit Charges Inpatient E&M: 42641 Subs Hosp L2 NIHSS NIHSS Nursing Documentation NIHSS Nursing Documentation: NIH Stroke Scale Start: 03/29/25 18:31 Freq: Status: Discharge Protocol: Activity Type Activity Date Activity User E-sign Co-sign Detail Recorded Client Recorded Date Recorded By Document 03/29/25 18:31 [id number] 03/29/25 18:31 03/29/25 18:31 NIH Stroke Scale [NIHSS] A score of 0 is normal or asymptomatic . Total possible score is 42. Inpatient: RN or Physician to activate a stroke alert for onset of new stroke symptoms or with NIHSS increase >/= 3 points. Following change in neurological status, NIHSS will be performed per physician order or more frequently PRN. -1a. Level of Consciousness 0 - Alert; keenly responsive -1b. LOC Questions 0 - Answers BOTH questions correctly -1c. LOC Commands 0 - Performs BOTH tasks correctly -2. Best Gaze 0 - Normal -3. Visual 0 - No visual loss -4. Facial Palsy 0 - Normal symmetrical movements -5a. Left Arm 0 - No drift; arm holds 90 ( or 45) degrees for full 10 seconds -5b. Right Arm 0 - No drift; arm holds 90 ( or 45) degrees for full 10 seconds -6a. Left Leg 0 - No drift; leg holds 30- degree position for full 5 seconds -6b. Right Leg 0 - No drift; leg holds 30- degree position for full 5 seconds -7. Limb Ataxia 0 - Absent -8. Sensory 0 - Normal; no sensory loss -9. Best Language 0 - No aphasia; normal -10. Dysarthria 0 - Normal -11. Extinction and Inattention 0 - No abnormality -Total 0 Query Text:A score of 0 is normal or asymptomatic. Total possible score is 42 . ED: Notify Physician for NIHSS increase by > / = 3 points. Inpatient: RN or Physician to activate a stroke alert for NIHSS increase of > / = 3 points.
[2025-03-30 10:21] LABS: Osmolality, Serum 256 mOsm/KG (280-301)
--- NOTE | 2025-03-30 11:04 | CASEMGMT ---
Social Work Primary Care Doctor: Dr. Lee Speciality doctors: Dr. Camilo- oncologist, Dr. Miranda- gastrologist, Dr. Hernandez- signs and displays sales representative Insurance: [facility] Medicare Pharmacy: Patient utilizes [facility] in [place] Advanced directives: Patient has a POA in her chart. LNOK:. her daughter Marital/Social History: Patient lives at home with her boyfriend. Her daughter lives next door. Her brother and nephew lives close by. Living Situation: (steps into home)- home with 4 steps into it. ADL's/Prior level of functioning: independent Transportation: Patient still drives. DME: [facility]home health history: none Support/Community Services: none Mental Health: She was diagnosed with depression in 1981. She took medication previously. She does not take medication now. Substance abuse history: She uses THC occasionally. Assessment: Patient lives at home with her boyfriend. Her daughter lives next door. Her brother and nephew live close by. Patient still drives and she is independent with ADL's prior to hospitalization. Social Work to continue to follow. SIMONE Morrison
[2025-03-30] MEDS: Ensure Plus High Protein 120 ML LIQUID PO ×2 (11:40→17:01)
--- NOTE | 2025-03-30 12:31 | CHAPLAIN ---
Type of Pastoral Visit _x__ Initial Visit ___ Follow-up Visit ___ On-call Visit ___ General Patient Visit ___ Spiritual Assessment ___ Family Conference ___ Bereavement ___ Rapid Response ___ Code Blue ___ Other (describe below) Pastoral Care Referral From _x__ Patient ___ Family ___ Nurse ___ Physician ___ Basket Hand Weaver ___ Chain Mender ___ Other (describe below) Sacrament/Intervention _x__ Active listening ___ Anointing ___ Judaism ___ Bereavement ___ Communion _x__ Marce exploration ___ _x__ Life review _x__ Prayer ___ Reconciliation ___ Sacrament of Sick _x__ Supportive presence ___ Wedding ___ Other (describe below) Pastoral Comments when patient is asked about her needs and how she is doing, the patient breaks into tears; pt describes family problems and burdens upon her; pt acknowledges her cancer as well and how this is all so much to deal with; pt has limited personal support which comes from a brother and her boyfriend; pt states that she is spiritual but not connected to any denominational group or zoroastrianism; pt is given lots of time to talk, express herself, and have affirmation/support; pt welcomes prayer and the time given to listen to her concerns
[2025-03-30] MEDS: Dextrose 5%-Water (1000mL Bag) 1,000 ML 1000 ML IV (16:36)
[2025-03-30] MEDS: VONOPRAZAN FUMARATE 20 MG PO (16:44)
[2025-03-30] MEDS: MELATONIN 3 MG TABLET PO (21:44)
[2025-03-31 03:00] VITALS: BP 107/64; PULSE 64; RESP 16; TEMP 36.7; O2SAT 97
[2025-03-31 04:56] VITALS: BMI 36.9
[2025-03-31 05:00] LABS: Hematocrit 31.9 % (37-47); Hemoglobin 10.6 g/dL (12.0-15.0); Immature Granulocytes Count 0.010 X10^3/uL (0.0-0.0); Mean Corp Hgb Conc 33.2 g/dL (32-36); Mean Corpuscular Volume 85.5 fL (81-99); Mean Platelet Vol. 9.9 fl (6.2-12.0); NRBC Flagged by Analyzer 0 % (0-5); Platelet Count 176 K/mm3 (150-450); RBC Distribution Width CV 14.0 % (11.6-14.6); RBC Distribution Width SD 43.6 fl (35.1-43.9); Red Blood Count 3.73 M/mm3 (4.2-5.4); White Blood Count 3.9 K/mm3 (4.4-11.0)
[2025-03-31 05:28] LABS: Anion Gap 11 (5-15); BUN 13 mg/dL (4-19); BUN/Creat Ratio 16.4 RATIO (10-20); Calcium,Total 8.3 mg/dL (7.6-11.0); Carbon Dioxide 18.2 mmol/L (21.0-32.0); Chloride 98 mmol/L (98-108); Estimated Creatinine Clearance 66.96 ml/min (50-250); Glucose 103 mg/dL (70-99); Potassium 4.0 mmol/L (3.3-5.1)
[2025-03-31 09:03] VITALS: BP 111/55; PULSE 75; RESP 16; TEMP 36.7; O2SAT 98
[2025-03-31] MEDS: VONOPRAZAN FUMARATE 20 MG PO (09:07)
[2025-03-31] MEDS: Tolterodine Tartrate 4 MG CAP.SA PO (09:07)
[2025-03-31] MEDS: FLU VACCINE HIGH DOSE 25-26(65YR UP) 180 MCG/0.5 ML SYRINGE IM (09:14)
[2025-03-31] MEDS: 0.9% Saline Lock 10 ML Syringe IV ×2 (09:14→11:20)
--- NOTE | 2025-03-31 09:14 | PCM.PN.HOSP ---
Reason for Visit Chief Complaint: Dizziness, lightheadedness, near syncope. Objective Data Objective Data Vital Signs: Vital Signs Temp Pulse Resp BP Pulse Ox O2 Del Method 98.1 F 75 16 111/55 L 98 Room Air 03/31/25 09:03 03/31/25 09:03 03/31/25 09:03 03/31/25 09:03 03/31/25 09:03 03/31/25 09:03 Oxygen Delivery Method Room Air Weight: 182 lb 15.739 oz Body Mass Index (BMI) 36.9 Intake & Output: Intake and Output for Last 24 Hours 03/29/25 03/30/25 03/31/25 23:59 23:59 23:59 Intake Total 1750 / 1750 3577 / 3577 Balance 1750 / 1750 3577 / 3577 Lab / Micro Data 03/31/25 04:43 03/31/25 04:43 Labs: Laboratory Results - last 24 hr 03/30/25 00:12: Serum Osmolality 256 L 03/30/25 12:32: Sodium 129 L 03/30/25 18:09: Sodium 127 L 03/30/25 23:55: Sodium 128 L 03/31/25 04:43: WBC 3.9 L, RBC 3.73 L, Hgb 10.6 L, Hct 31.9 L, MCV 85.5 D, MCH 28.4, MCHC 33.2 D, RDW Std Deviation 43.6, RDW Coeff of Gabby 14.0, Plt Count 176, MPV 9.9, Immature Gran % (Auto) 0.300, Neut % (Auto) 63.8, Lymph % (Auto) 20.9, Cul[place]on % (Auto) 12.4 H, Eos % (Auto) 2.1, Baso % (Auto) 0.5, Absolute Neuts (auto) 2.5, Absolute Lymphs (auto) 0.81 L, Nucleated RBC % 0, Sodium 128 L, Potassium 4.0, Chloride 98, Carbon Dioxide 18.2 L, Anion Gap 11, BUN 13, Creatinine 0.78, Estim Creat Clear Calc 66.96, Est GFR (MDRD) Non-Af 85, BUN/Creatinine Ratio 16.4, Glucose 103 H, Calcium 8.3 Physical Exam Narrative She had last chemotherapy in February 2022. Was dizzy lightheaded yesterday but feels better. She said wants to go home. Serum sodium increased from 119-126. Try to keep sodium 126 Generalized weakness Physical exam. General: Alert, Oriented x3, Cooperative HEENT: Atraumatic, PERRLA, EOMI, Normocephalic. Oral: No Gingival or Mucosal Lesions/ Ulcerations Neck: Supple, No JVD, Negative Carotid Bruits Chest wall/Lungs: Right-sided chest Mediport. Air entry equal in bilateral lung bases. No crepitation/rhonchi Cardiovascular: Regular rate and rhythm, Normal S1,S2, No M/G/R Abdomen: Bowel Sounds Present, Soft, Non Tender, Non-Distended : No dysuria. No renal angle tenderness. No suprapubic tenderness. Extremities: No edema, Capillary Refill Less than 3 Seconds Skin: No rashes, No breakdown Musculoskeletal: No Tenderness to Palpation of Joints or Extremities. Decreased muscle strength of lower extremities Neurological: Cranial nerves II-XII grossly intact, DTR 2+/4. No acute focal neurological deficit. Psych/Mental Status: Normal Affect, Appropriate. Assessment & Plan Assessment/Plan (1) Near syncope: (2) Acute hyponatremia: (3) Orthostasis: PLAN: Plan The patient is a 65 y/o F who was admitted with dizziness/lightheadedness, nausea for 45 minutes prior to arrival. She had a recent significant poor oral intake. #1. Acute Lightheadedness/Dizziness w/ Near Syncope with Acute Orthostasis secondary to Acute Hyponatremia, hypochloremia primarily suspected to be hypovolemic etiology: Patient is being admitted in PCU. Serum sodium on admission was 119, chloride 83 baseline about 134. Urine osmolality 342, random sodium 100, creatinine 38. No serum osmolarity. Bicarb 18.5, anion gap 18 which looks areas as patient potassium Zerozole 3.2 which should usually hypokalemic alkalosis. BUN/creatinine 14/0.93. 10/2 repeat sodium 126, potassium 4.2, bicarb 20.9, anion gap 13. In ED, orthostatic shows drop in blood pressure 110/75 supine to -96/74 but does not meet more than 20 mm drop in the heart rate went up from 80-100. #2. Hyperglycemia without diabetic history: Admission glucose 142, possibly stress response, hemoglobin A1c 5.2. Diabetes ruled out. #3. Hypokalemia: Admission K+ 3.2, magnesium level requested, supplementation given, repeat level is 4.2. Hypokalemia resolved Hyponatremia: Patient came to ED with serum sodium 119. It increased to 129. It is 10 mEq rise in about 18 hours, less than 24 hours. On D5W ordered to bring down the sodium. #4. History follicular lymphoma: Following with [facility] Dr. Camilo, noted to be in remission, treated remotely with chemotherapy. Most recent pulmonary visit 02/15/2025 and was advised follow-up CT chest in 6 months #6. Anxiety and depression: Noted history, per current list does not appear to be on a regimen, encourage continued follow-up outpatient with PCP as previously arranged. #7. Hypertension: Lower blood pressure upon presentation, will hold diuretic therapy given presentation as noted, likely contributing, will continue hydration, as needed IV hydralazine in the interim. #8. Hyperlipidemia: Per current list not on regimen, defer to outpatient. #9. Tobacco Abuse: Encouraged cessation, had been recently tobacco free for 2 years however on day of presentation did smoke cigarettes, inpatient consultation per RT, NR if desired. #10. Obesity: Weight loss and lifestyle changes encouraged. #11. GERD with possible esophageal dysphagia: Will continue patient home PPI, vonoprazan and sucralfate regimen. She was seen by Jessica Genao NP GI on 03/05/2025. Esophageal manometry was ineffective because of coiling of the manometric catheter. Was referred for surgical evaluation for hiatus hernia repair. Meloxicam was stopped. #12. DVT prophylaxis: Lovenox. #13. CODE status: Patient IRVING is her brother and living will are in place. She does report that her daughter had also been healthcare power of tax attorney but she has a preference at this point to not have her daughter make any medical decisions for her. Discussed CODE status at length including difference between FULL code, DNR-CCA and DNR-CC status. Following discussions about the differences in these status, requested DNR-CCA, clarified short-term intubation and she is amenable to this if appropriate short-term only. Laboratory Results 03/29/25 17:40: WBC 9.5, RBC 4.79, Hgb 13.5, Hct 37.7, MCV 78.7 L, MCH 28.2, MCHC 35.8, RDW Std Deviation 38.4, RDW Coeff of Gabby 13.3, Plt Count 325, MPV 10.3, Immature Gran % (Auto) 0.600, Neut % (Auto) 75.5 H, Lymph % (Auto) 13.7 L, [place] % (Auto) 9.3, Eos % (Auto) 0.4, Baso % (Auto) 0.5, Absolute Neuts (auto) 7.2, Absolute Lymphs (auto) 1.30, Nucleated RBC % 0, Sodium 119 L*, Potassium 3.2 L, Chloride 83 L, Carbon Dioxide 18.5 L, Anion Gap 18 H, BUN 14, Creatinine 0.93, Estim Creat Clear Calc 58.06, Est GFR (MDRD) Non-Af 68, BUN/Creatinine Ratio 14.6, Glucose 142 H, Calcium 9.3, Troponin T High Sens 10 03/29/25 19:52: Phosphorus 2.6 L, Magnesium 1.5, Troponin T Hi Sens 2 Hr 10 03/29/25 20:20: Urine Color Straw, Urine Clarity Clear, Urine pH 6.5, Ur Specific Brady 1.010, Urine Protein Negative, Urine Glucose (UA) Normal, Urine Ketones 15 H, Urine Occult Blood Negative, Urine Nitrite Negative, Urine Bilirubin Negative, Urine Urobilinogen Normal, Ur Leukocyte Esterase Negative, Urine RBC 0-5 SEEN, Urine WBC 0-5 SEEN, Ur Squamous Epith Cells 0-5 SEEN, Urine Bacteria 0 SEEN, Urine Mucus 0 SEEN, Urine Osmolality 342, Ur Random Sodium 100, Urine Creatinine 38.10 03/30/25 00:12: Serum Osmolality 256 L, Troponin T High Sens 10 03/30/25 05:03: WBC 5.0, RBC 3.96 L, Hgb 11.2 L, Hct 31.1 L, MCV 78.5 L, MCH 28.3, MCHC 36.0, RDW Std Deviation 38.9, RDW Coeff of Gabby 13.5, Plt Count 196, MPV 9.9, Immature Gran % (Auto) 0.600, Neut % (Auto) 68.0, Lymph % (Auto) 18.1 L, [place] % (Auto) 11.9 H, Eos % (Auto) 1.0, Baso % (Auto) 0.4, Absolute Neuts (auto) 3.4, Absolute Lymphs (auto) 0.91, Nucleated RBC % 0, Sodium 126 L, Potassium 4.2, Chloride 92 L, Carbon Dioxide 20.9 L, Anion Gap 13, BUN 10, Creatinine 0.73, Estim Creat Clear Calc 66.65, Est GFR (MDRD) Non-Af 91, BUN/Creatinine Ratio 13.2, Glucose 79, Hemoglobin A1c 5.2, Calcium 8.3, Phosphorus 4.9 H, Total Bilirubin 0.60, AST 26, ALT 16, Alkaline Phosphatase 74, Total Protein 5.6 L, Albumin 3.5, Globulin 2.1 L, Albumin/Globulin Ratio 1.6, TSH 0.956 03/30/25 12:32: Sodium 129 L NIHSS NIHSS Nursing Documentation NIHSS Nursing Documentation: NIH Stroke Scale Start: 03/29/25 18:31 Freq: Status: Discharge Protocol: Activity Type Activity Date Activity User E-sign Co-sign Detail Recorded Client Recorded Date Recorded By Document 03/29/25 18:31 [id number] 03/29/25 18:31 03/29/25 18:31 NIH Stroke Scale [NIHSS] A score of 0 is normal or asymptomatic . Total possible score is 42. Inpatient: RN or Physician to activate a stroke alert for onset of new stroke symptoms or with NIHSS increase >/= 3 points. Following change in neurological status, NIHSS will be performed per physician order or more frequently PRN. -1a. Level of Consciousness 0 - Alert; keenly responsive -1b. LOC Questions 0 - Answers BOTH questions correctly -1c. LOC Commands 0 - Performs BOTH tasks correctly -2. Best Gaze 0 - Normal -3. Visual 0 - No visual loss -4. Facial Palsy 0 - Normal symmetrical movements -5a. Left Arm 0 - No drift; arm holds 90 ( or 45) degrees for full 10 seconds -5b. Right Arm 0 - No drift; arm holds 90 ( or 45) degrees for full 10 seconds -6a. Left Leg 0 - No drift; leg holds 30- degree position for full 5 seconds -6b. Right Leg 0 - No drift; leg holds 30- degree position for full 5 seconds -7. Limb Ataxia 0 - Absent -8. Sensory 0 - Normal; no sensory loss -9. Best Language 0 - No aphasia; normal -10. Dysarthria 0 - Normal -11. Extinction and Inattention 0 - No abnormality -Total 0 Query Text:A score of 0 is normal or asymptomatic. Total possible score is 42 . ED: Notify Physician for NIHSS increase by > / = 3 points. Inpatient: RN or Physician to activate a stroke alert for NIHSS increase of > / = 3 points.
[2025-03-31] MEDS: Magnesium Chloride 64 MG Delay Rel.Tablet 128 MG PO (11:20)
[2025-03-31] MEDS: 0.9% Normal Saline (1000mL) 1,000 ML 75 ML IV (11:20)
[2025-03-31 11:26] VITALS: BP 101/57; BP 146/146; BP 98/73; PULSE 71; PULSE 80; PULSE 97
--- NOTE | 2025-03-31 13:57 | CASEMGMT ---
Addendum entered by Dominique Randhawa 03/31/25 14:00: Patient is ambulating 250' with no AD independent. Original Note: Social Work SW spoke with the patient. Patient reported she does not DME and she does not want HH. Humble Randhawa
--- NOTE | 2025-03-31 14:02 | PCM.DC ---
Discharge Instructions DC O2, CPAP, BIPAP needs Home O2 Discharge instructions: No Dressing / Incision Discharge Activity: Return to Normal Activity Weight Bearing Status: Weight bearing as tolerated Dressing / Incision Call your doctor if you observe: Fever of 101 or Higher, Coldness, Increased Pain, Numbness or Tingling, Change in Color, Inability to urinate, Inability to have a bowel movement, Shortness of breath, Dizziness, Fainting spells, Swelling in the ankles, Chest pain, Prolonged hiccupping, Increased palpitations (irregular heartbeat) and Calf discomfort Follow Up Care When: IN 2 WEEKS Test Results: Test results from this visit will be discussed in further detail at your follow-up appointment, if applicable. Discharge Plan Admission Admit Date/Time: 03/29/25 21:24 Primary Reason for Your Visit: Chronic severe hyponatremia Attending Provider: Adis Clarke Primary Care Provider: Dandre Lee Consulting Providers: Roe Camilo; Berta Servin; Nicholas Moore Discharge Orders/Prescriptions Prescriptions: New acetaminophen 325 mg Tablet 650 mg PO Q4H PRN PRN (Reason: Fever, pain 1-04/07) Qty: 0 0RF magnesium chloride [Mag 64] 64 mg Tablet,Delayed Release (Dr/Ec) 128 mg PO BID 5 Days Qty: 20 0RF lisinopril 20 mg tablet 20 mg PO DAILY 30 Days Qty: 30 1RF sodium chloride 1,000 mg tablet,soluble 1,000 mg PO TID 7 Days Qty: 21 0RF Continued albuterol sulfate 90 mcg/actuation HFA aerosol inhaler 2 puff inhalation Q4H PRN (Reason: shortness of breath or wheezing) oxybutynin chloride 15 mg tablet extended release 24hr 30 mg PO QDAY sucralfate 1 gram tablet 1 g PO QACHS Voquezna 20 mg tablet 20 mg PO QDAY Qty: 30 3RF nystatin 100,000 unit/gram powder 1 applic topical 4X/DAY Discontinued lisinopril-hydrochlorothiazide 20-25 mg tablet 1 tab PO QDAY meloxicam 15 mg tablet 15 mg PO DAILY Referrals / Follow Up: Dandre Lee MD [Primary Care Provider, Family Practice] Nicholas Moore MD [Med Staff - Consulting, Nephrology] - Within 2 Weeks Disposition Disposition (needs filled in before D/C Order can be placed): Home, Self Care
--- NOTE | 2025-03-31 14:08 | PCM.DC.SUM ---
Providers Date of Admission: 03/29/25 Date of Discharge: 03/31/25 Primary Care Physician: Dr. Dandre Lee MD Consultations 03/31/25 09:15 Consult: Nephrology Routine Consulting Provider: Nicholas Moore Reason for Consult: Severe hyponatremia, ortho hypotension EMERGENT Consult: No MD Notified: Yes Date Notified: 03/31/25 Time Notified: 09:15 Method of Notification: Text Reason For Visit: NEAR SYNCOPE, ORTHOSTATIC, HYPONATREMIA, Diagnosis Discharge Diagnosis (1) Near syncope: Status: Acute Code(s): R55 - Syncope and collapse (2) Acute hyponatremia: Status: Acute Code(s): E87.1 - Hypo-osmolality and hyponatremia (3) Orthostasis: Status: Acute Code(s): I95.1 - Orthostatic hypotension Plan The patient is a 65 y/o F who was admitted with dizziness/lightheadedness, nausea for 45 minutes prior to arrival. She had a recent significant poor oral intake. #1. Acute Lightheadedness/Dizziness w/ Near Syncope with Acute Orthostasis secondary to severe chronic acute Hyponatremia, hypochloremia primarily suspected SIADH: Patient is being admitted in PCU. Serum sodium on admission was 119, chloride 83 baseline about 134. Urine osmolality 342, random sodium 100, creatinine 38. No serum osmolarity. Bicarb 18.5, anion gap 18 which looks areas as patient potassium Zerozole 3.2 which should usually hypokalemic alkalosis. BUN/creatinine 14/0.93. 10/2 repeat sodium 126, potassium 4.2, bicarb 20.9, anion gap 13. 10/3: D5W was given yesterday because of 10 mEq rise about 18 hours. Sodium came down to 127 and slowly 128. Normal saline IV fluid slow rate given and repeat sodium 133. Patient started on sodium tablet and discharged on 1 g 3 times daily after discussion with launch manager, Dr. Moore. Follow-up in nephrology office in 2 weeks. SIADH may be due to history of follicular lymphoma. In ED, orthostatic shows drop in blood pressure 110/75 supine to -96/74 but does not meet more than 20 mm drop in the heart rate went up from 80-100. #2. Hyperglycemia without diabetic history: Admission glucose 142, possibly stress response, hemoglobin A1c 5.2. Diabetes ruled out. #3. Hypokalemia: Admission K+ 3.2, magnesium level requested, supplementation given, repeat level is 4.2. Hypokalemia resolved #4. History follicular lymphoma: Following with [facility] Dr. Camilo, noted to be in remission, treated remotely with chemotherapy. Most recent pulmonary visit 02/15/2025 and was advised follow-up CT chest in 6 months #6. Anxiety and depression: Noted history, per current list does not appear to be on a regimen, encourage continued follow-up outpatient with PCP as previously arranged. #7. Hypertension: Lower blood pressure upon presentation, will hold diuretic therapy given presentation as noted, likely contributing, will continue hydration, as needed IV hydralazine in the interim. #8. Hyperlipidemia: Per current list not on regimen, defer to outpatient. #9. Tobacco Abuse: Encouraged cessation, had been recently tobacco free for 2 years however on day of presentation did smoke cigarettes, inpatient consultation per RT, NR if desired. #10. Obesity: Weight loss and lifestyle changes encouraged. #11. GERD with possible esophageal dysphagia: Will continue patient home PPI, vonoprazan and sucralfate regimen. She was seen by Jessica Genao NP GI on 03/05/2025. Esophageal manometry was ineffective because of coiling of the manometric catheter. Was referred for surgical evaluation for hiatus hernia repair. Meloxicam was stopped. #12. DVT prophylaxis: Lovenox. #13. CODE status: Patient IRVING is her brother and living will are in place. She does report that her daughter had also been healthcare power of lumber puller but she has a preference at this point to not have her daughter make any medical decisions for her. Discussed CODE status at length including difference between FULL code, DNR-CCA and DNR-CC status. Following discussions about the differences in these status, requested DNR-CCA, clarified short-term intubation and she is amenable to this if appropriate short-term only. Discharge medication reconciliation done. Discharge follow-up instructions completed. Discharge process discussed with the patient and all questions were answered to patient's satisfaction. Follow with PCP in 1 to 2 weeks Total time spent, exact 35 minutes on discharge meds reconciliation, examination, coordination of care with nurses and ancillary staff, review of imaging and blood test and discussion with the patient on follow-up instructions. Laboratory Results 03/29/25 17:40: WBC 9.5, RBC 4.79, Hgb 13.5, Hct 37.7, MCV 78.7 L, MCH 28.2, MCHC 35.8, RDW Std Deviation 38.4, RDW Coeff of Gabby 13.3, Plt Count 325, MPV 10.3, Immature Gran % (Auto) 0.600, Neut % (Auto) 75.5 H, Lymph % (Auto) 13.7 L, Luna % (Auto) 9.3, Eos % (Auto) 0.4, Baso % (Auto) 0.5, Absolute Neuts (auto) 7.2, Absolute Lymphs (auto) 1.30, Nucleated RBC % 0, Sodium 119 L*, Potassium 3.2 L, Chloride 83 L, Carbon Dioxide 18.5 L, Anion Gap 18 H, BUN 14, Creatinine 0.93, Estim Creat Clear Calc 58.06, Est GFR (MDRD) Non-Af 68, BUN/Creatinine Ratio 14.6, Glucose 142 H, Calcium 9.3, Troponin T High Sens 10 03/29/25 19:52: Phosphorus 2.6 L, Magnesium 1.5, Troponin T Hi Sens 2 Hr 10 03/29/25 20:20: Urine Color Straw, Urine Clarity Clear, Urine pH 6.5, Ur Specific [place] 1.010, Urine Protein Negative, Urine Glucose (UA) Normal, Urine Ketones 15 H, Urine Occult Blood Negative, Urine Nitrite Negative, Urine Bilirubin Negative, Urine Urobilinogen Normal, Ur Leukocyte Esterase Negative, Urine RBC 0-5 SEEN, Urine WBC 0-5 SEEN, Ur Squamous Epith Cells 0-5 SEEN, Urine Bacteria 0 SEEN, Urine Mucus 0 SEEN, Urine Osmolality 342, Ur Random Sodium 100, Urine Creatinine 38.10 03/30/25 00:12: Serum Osmolality 256 L, Troponin T High Sens 10 03/30/25 05:03: WBC 5.0, RBC 3.96 L, Hgb 11.2 L, Hct 31.1 L, MCV 78.5 L, MCH 28.3, MCHC 36.0, RDW Std Deviation 38.9, RDW Coeff of Gabby 13.5, Plt Count 196, MPV 9.9, Immature Gran % (Auto) 0.600, Neut % (Auto) 68.0, Lymph % (Auto) 18.1 L, Luna % (Auto) 11.9 H, Eos % (Auto) 1.0, Baso % (Auto) 0.4, Absolute Neuts (auto) 3.4, Absolute Lymphs (auto) 0.91, Nucleated RBC % 0, Sodium 126 L, Potassium 4.2, Chloride 92 L, Carbon Dioxide 20.9 L, Anion Gap 13, BUN 10, Creatinine 0.73, Estim Creat Clear Calc 66.65, Est GFR (MDRD) Non-Af 91, BUN/Creatinine Ratio 13.2, Glucose 79, Hemoglobin A1c 5.2, Calcium 8.3, Phosphorus 4.9 H, Total Bilirubin 0.60, AST 26, ALT 16, Alkaline Phosphatase 74, Total Protein 5.6 L, Albumin 3.5, Globulin 2.1 L, Albumin/Globulin Ratio 1.6, TSH 0.956 03/30/25 12:32: Sodium 129 L Medications at Discharge Home Medications albuterol sulfate 90 mcg/actuation aerosol inhaler 2 puff inhalation Q4H PRN shortness of breath or wheezing 08/14/23 oxybutynin chloride 15 mg tablet,extended release 24 hr 30 mg PO QDAY incontinence 12/01/24 sucralfate 1 gram tablet 1 g PO QACHS acid reflux 02/17/25 vonoprazan 20 mg tablet (Voquezna) 20 mg PO QDAY #30 tabs 03/14/25 nystatin 100,000 unit/gram topical powder 1 applic topical 4X/DAY rash 03/29/25 acetaminophen 325 mg tablet 650 mg (2 x 325 mg) PO Q4H PRN PRN Fever, pain 1-04/07 #0 tabs 03/31/25 lisinopril 20 mg tablet 20 mg PO DAILY 1 month #30 tabs 03/31/25 magnesium chloride 64 mg (magnesium chloride) tablet,delayed release (Mag 64) 128 mg (2 x 64 mg) PO BID 5 days #20 tabs 03/31/25 sodium chloride 1,000 mg soluble tablet 1,000 mg PO TID 1 week #21 tabs 03/31/25 Physical Exam Narrative She had last chemotherapy in February 2022. Patient is doing well wants to go home. Serum sodium was 120 8 in the morning. IVF normal saline and sodium tablet started. Repeat sodium 133. Generalized weakness Physical exam. General: Alert, Oriented x3, Cooperative HEENT: Atraumatic, PERRLA, EOMI, Normocephalic. Oral: No Gingival or Mucosal Lesions/ Ulcerations Neck: Supple, No JVD, Negative Carotid Bruits Chest wall/Lungs: Right-sided chest Mediport. Air entry equal in bilateral lung bases. No crepitation/rhonchi Cardiovascular: Regular rate and rhythm, Normal S1,S2, No M/G/R Abdomen: Bowel Sounds Present, Soft, Non Tender, Non-Distended : No dysuria. No renal angle tenderness. No suprapubic tenderness. Extremities: No edema, Capillary Refill Less than 3 Seconds Skin: No rashes, No breakdown Musculoskeletal: No Tenderness to Palpation of Joints or Extremities. Decreased muscle strength of lower extremities Neurological: Cranial nerves II-XII grossly intact, DTR 2+/4. No acute focal neurological deficit. Psych/Mental Status: Normal Affect, Appropriate. Weight / BMI Weight Weight: 182 lb 15.739 oz Body Mass Index (BMI) 36.9 ABG / Lab / Microbiology Data 03/31/25 04:43 03/31/25 14:23 Laboratory: Laboratory Results - last 24 hr 03/30/25 18:09: Sodium 127 L 03/30/25 23:55: Sodium 128 L 03/31/25 04:43: WBC 3.9 L, RBC 3.73 L, Hgb 10.6 L, Hct 31.9 L, MCV 85.5 D, MCH 28.4, MCHC 33.2 D, RDW Std Deviation 43.6, RDW Coeff of Gabby 14.0, Plt Count 176, MPV 9.9, Immature Gran % (Auto) 0.300, Neut % (Auto) 63.8, Lymph % (Auto) 20.9, Luna % (Auto) 12.4 H, Eos % (Auto) 2.1, Baso % (Auto) 0.5, Absolute Neuts (auto) 2.5, Absolute Lymphs (auto) 0.81 L, Nucleated RBC % 0, Sodium 128 L, Potassium 4.0, Chloride 98, Carbon Dioxide 18.2 L, Anion Gap 11, BUN 13, Creatinine 0.78, Estim Creat Clear Calc 66.96, Est GFR (MDRD) Non-Af 85, BUN/Creatinine Ratio 16.4, Glucose 103 H, Calcium 8.3 03/31/25 14:23: Sodium 133 D/C Instructions Weight Bearing Status: Weight bearing as tolerated Call your doctor if you observe: Fever of 101 or Higher, Coldness, Increased Pain, Numbness or Tingling, Change in Color, Inability to urinate, Inability to have a bowel movement, Shortness of breath, Dizziness, Fainting spells, Swelling in the ankles, Chest pain, Prolonged hiccupping, Increased palpitations (irregular heartbeat) and Calf discomfort DC O2, CPAP, BIPAP Needs Home O2 Discharge instructions: No When: IN 2 WEEKS Meaningful Use Info Meaningful Use Meaningful Use Diagnoses (Choose all that apply): None applicable Discharge Plan Admission Admit Date/Time: 03/29/25 21:24 Primary Reason for Your Visit: Chronic severe hyponatremia Attending Provider: Adis Clarke Primary Care Provider: Dandre Lee Consulting Providers: Roe Camilo; Berta Servin; Nicholas Moore Discharge Orders/Prescriptions Prescriptions: New acetaminophen 325 mg Tablet 650 mg PO Q4H PRN PRN (Reason: Fever, pain 1-04/07) Qty: 0 0RF magnesium chloride [Mag 64] 64 mg Tablet,Delayed Release (Dr/Ec) 128 mg PO BID 5 Days Qty: 20 0RF lisinopril 20 mg tablet 20 mg PO DAILY 30 Days Qty: 30 1RF sodium chloride 1,000 mg tablet,soluble 1,000 mg PO TID 7 Days Qty: 21 0RF Continued albuterol sulfate 90 mcg/actuation HFA aerosol inhaler 2 puff inhalation Q4H PRN (Reason: shortness of breath or wheezing) oxybutynin chloride 15 mg tablet extended release 24hr 30 mg PO QDAY sucralfate 1 gram tablet 1 g PO QACHS Voquezna 20 mg tablet 20 mg PO QDAY Qty: 30 3RF nystatin 100,000 unit/gram powder 1 applic topical 4X/DAY Discontinued lisinopril-hydrochlorothiazide 20-25 mg tablet 1 tab PO QDAY meloxicam 15 mg tablet 15 mg PO DAILY Referrals / Follow Up: Nicholas Moore MD [Med Staff - Consulting, Nephrology] - Within 2 Weeks Dandre Lee MD [Primary Care Provider, Family Practice] Disposition Disposition (needs filled in before D/C Order can be placed): Home, Self Care Charges/Coding Visit Charges Inpatient E&M: 65665 Disch Hosp >30min
[2025-03-31 14:30] VITALS: BP 109/67; PULSE 66; RESP 16; O2SAT 97
--- NOTE | 2025-03-31 14:51 | PHA.DC_ITS ---
Pharmacy [facility] [place] Counseling Pharmacy Service has performed discharge medication reconciliation and counseling for this patient. 1. MAGNESIUM CHLORIDE 128MG PO BID 2. STOP LISINOPRIL/HYDROCHLOROTHIAZIDE, CHANGED TO LISINOPRIL 20MG PO DAILY 3. STOP MOBIC The patient's discharge medication list was reviewed for discrepancies and discrepancies were resolved. The patient was counseled on the following discharge medications and changes in medications for homegoing were reviewed. The Reason for Use, instructions for use, and potential side effects were revi ewed for all new medications. The patient's questions regarding all of their medications were answered. The patient was able to verbally demonstrate an understanding of their discharge medications. Medications at Discharge Home Medications albuterol sulfate 90 mcg/actuation aerosol inhaler 2 puff inhalation Q4H PRN shortness of breath or wheezing 08/14/23 oxybutynin chloride 15 mg tablet,extended release 24 hr 30 mg PO QDAY incontinence 12/01/24 sucralfate 1 gram tablet 1 g PO QACHS acid reflux 02/17/25 vonoprazan 20 mg tablet (Voquezna) 20 mg PO QDAY #30 tabs 03/14/25 nystatin 100,000 unit/gram topical powder 1 applic topical 4X/DAY rash 03/29/25 acetaminophen 325 mg tablet 650 mg (2 x 325 mg) PO Q4H PRN PRN Fever, pain 1- 04/07 #0 tabs 03/31/25 lisinopril 20 mg tablet 20 mg PO DAILY 1 month #30 tabs 03/31/25 magnesium chloride 64 mg (magnesium chloride) tablet,delayed release (Mag 64) 128 mg (2 x 64 mg) PO BID 5 days #20 tabs 03/31/25
--- NOTE | 2025-03-31 15:32 | PCM.CONS.R ---
Assessment & Plan Assessment/Plan (1) Acute hyponatremia: PLAN: Prior to this admission, sodium was around 134. Came in with sodium under 125, improved. Low risk for OTS. Sodium is above 130 today. Discussed with hospitalist. Okay for discharge from my end. Hold thiazide at the time of discharge. Urine sodium more than 20, urine osmolality more than 100 but these labs are not interpretable in the setting of prior thiazide use. Okay to discharge home with salt tablets for now. Will arrange follow-up and decide on further need for salt tablets. HPI Consult Data Date of Consult: 03/31/25 HPI Narrative Reason for Consultation: Hyponatremia HPI Narrative: DAREN JACKSON, is a 65 F who presents To the hospital with syncope. Nephrology on consultation in view of hyponatremia. Sodium on admission was around 124 or so. Previous sodium was around 134. Preadmission medication list reviewed, she was on thiazide along with lisinopril. Sodium has improved today. [facility] Medical History (Updated 03/29/25 @ 23:[address] Berta Servin MD) CKD (chronic kidney disease), stage II Obesity Hiatal hernia GERD (gastroesophageal reflux disease) History of follicular lymphoma Anxiety and depression Substance abuse Former smoker DDD (degenerative disc disease), lumbar Hypertension Osteoarthritis Genital herpes Hypertension Home Medications ?Medication ?Instructions ?Recorded ?Last Taken ?Type albuterol sulfate 90 mcg/actuation 2 puff inhalation Q4H PRN 08/14/23 12/08/23 History aerosol inhaler shortness of breath or wheezing oxybutynin chloride 15 mg 30 mg PO QDAY incontinence 12/01/24 03/29/25 08:00 History tablet,extended release 24 hr 30 mg sucralfate 1 gram tablet 1 g PO QACHS acid reflux 02/17/25 03/15/25 History vonoprazan 20 mg tablet (Voquezna) 20 mg PO QDAY #30 tabs 03/14/25 03/29/25 08:00 Rx 20 mg nystatin 100,000 unit/gram topical 1 applic topical 4X/DAY rash 03/29/25 03/29/25 History powder acetaminophen 325 mg tablet 650 mg (2 x 325 mg) PO Q4H PRN PRN 03/31/25 Unknown Rx Fever, pain 1-04/07 #0 tabs lisinopril 20 mg tablet 20 mg PO DAILY 1 month #30 tabs 10/03/25 Unknown Rx magnesium chloride 64 mg 128 mg (2 x 64 mg) PO BID 5 days 03/31/25 Unknown Rx (magnesium chloride) #20 tabs tablet,delayed release (Mag 64) sodium chloride 1,000 mg soluble 1,000 mg PO TID 1 week #21 tabs 03/31/25 Unknown Rx tablet Allergy/AdvReac Type Severity Reaction Status Date / Time celecoxib (From Celebrex) Allergy Itching Verified 12/28/24 14:16 rabbit dander Allergy Other Verified 12/28/24 14:16 Family History Mother Heart disease Diabetes Father Heart disease Diabetes Surgical History History of arthroscopy of left knee History of dilation and curettage History of tonsillectomy and adenoidectomy History of section History of cholecystectomy Social History household members: significant other Smoking Status: Former smoker how long ago did patient quit smoking: Patient smoke-free since 2 years previous, on day of presentation 1/2 pack. second hand exposure: No alcohol intake: former details: Notes no heavy alcohol consumption at least 30 years. substance use type: does not use Physical Exam Narrative Alert awake oriented x 3 no obvious distress no pallor no icterus no JVD s1s2 no murmurs lungs clear abdomen soft no organomegaly Lab / Micro Data 03/31/25 04:43 03/31/25 14:23 Labs: Laboratory Results - last 24 hr 03/30/25 18:09: Sodium 127 L 03/30/25 23:55: Sodium 128 L 03/31/25 04:43: WBC 3.9 L, RBC 3.73 L, Hgb 10.6 L, Hct 31.9 L, MCV 85.5 D, MCH 28.4, MCHC 33.2 D, RDW Std Deviation 43.6, RDW Coeff of Gabby 14.0, Plt Count 176, MPV 9.9, Immature Gran % (Auto) 0.300, Neut % (Auto) 63.8, Lymph % (Auto) 20.9, [place] % (Auto) 12.4 H, Eos % (Auto) 2.1, Baso % (Auto) 0.5, Absolute Neuts (auto) 2.5, Absolute Lymphs (auto) 0.81 L, Nucleated RBC % 0, Sodium 128 L, Potassium 4.0, Chloride 98, Carbon Dioxide 18.2 L, Anion Gap 11, BUN 13, Creatinine 0.78, Estim Creat Clear Calc 66.96, Est GFR (MDRD) Non-Af 85, BUN/Creatinine Ratio 16.4, Glucose 103 H, Calcium 8.3 03/31/25 14:23: Sodium 133
== END 2025-03-31 17:00 | disposition home or self-care (01) | DRG 644 ==
LOC: ED 21:24 → PCU 22:22
PROVIDERS: Admitting Provider Family Medicine; Emergency Provider Surgery; PCP Family Medicine; Visit Provider Internal Medicine
DX: E22.2 Syndrome of inappropriate secretion of antidiuretic hormone (principal); C82.9A Follicular lymphoma, unspecified, in remission; E66.9 Obesity, unspecified; K21.9 Gastro-esophageal reflux disease without esophagitis; E87.6 Hypokalemia; Z66 Do not resuscitate; I12.9 Hypertensive chronic kidney disease with stage 1 through stage 4 chronic kidney disease, or unspecified chronic kidney disease; N18.2 Chronic kidney disease, stage 2 (mild); R73.9 Hyperglycemia, unspecified; Z92.21 Personal history of antineoplastic chemotherapy; Z79.899 Other long term (current) drug therapy; Z79.51 Long term (current) use of inhaled steroids; Z87.891 Personal history of nicotine dependence; Z68.38 Body mass index [BMI] 38.0-38.9, adult
CPT/HCPCS: 36415; 70450; 71046; 80048; 80053; 81001; 82570; 83036; 83735; 83930; 83935; 84100; 84295; 84300; 84443; 84484; 85025; 93005; 97166; 97802; 99285; A4216; J2405

== ENCOUNTER → 2025-04-25 | Outpatient (CLI) | payer MEDICARE, SELFPAY ==
--- NOTE | 2025-04-25 09:00 | PET_ITS ---
PROCEDURE: PET/CT TUMOR BASE -THIGH SUBS 04/25/2025 REASON FOR EXAM: 65 y/o F with LYMPHOMA TECHNIQUE: Procedure Code: PETPTCTSUB Modality: PT Procedure: PET/CT TUMOR BASE -THIGH SUBS Following the intravenous administration of radionucleotide, image acquisition on a dedicated PET/CT unit was performed at one hour post injection. A preliminary CT study encompassing the Skull base, neck, chest, abdomen, pelvis, and proximal thighs was performed for purposes of attenuation correction and anatomic localization. The proximal thighs were also included. The patient's blood glucose level was 122 mg/dL (allowable range: 50-180 mg/dL). RADIOPHARMACEUTICAL: 14.04 mCi 18F-FDG (Fluorodeoxyglucose F18) IV was injected into he patient. RADIATION DOSE SUMMARY: Effective Dose: Approximately 7 mSv for a standard whole-body PET scan Organ Doses: Varies by organ, with higher doses typically to the bladder, liver, and brain COMPARISON: COMPARISON FROM CT, PET OR OTHER PERTINENT EXAMS: PET-CT 12/13/2024.. FINDINGS: Physiologic uptake: There may be expected metabolic uptake within the brain, tongue and floor of the mouth and larynx/vocal cords, heart, faith (many normal individuals have hilar uptake in less than 3 nodes with mildly avid hilar nodes less than 2.7 SUV), liver and spleen, system, and GI tract and symmetric muscle uptake. FDG AVID AND NON-AVID LESIONS. Reported avid SUV values (g/mL*) are maximum SUV. NECK: There are no significant neck abnormalities. CHEST: Chest wall- Within the deep subcutaneous tissues of the left lateral hemithorax, near the tip of the scapula, is seen a small hypermetabolic focus with SUV max of 3.3. This is concerning for a metastatic focus. Axilla- There are no significant axillary abnormalities. Lung parenchyma- There are no significant lung parenchyma abnormalities. Mediastinum- There are no significant hilar or mediastinal adenopathy. Pleura- There are no significant pleural abnormalities. ABDOMEN: A left retroperitoneal hypermetabolic lymph node is seen, lateral to the aorta, and larger in size than the prior PET-CT exam, with increased SUV max of 15.5. More proximally, a left retroperitoneal hypermetabolic lymph node is markedly increased in size and activity, with SUV max of 17.2. At least 2 hypermetabolic mesenteric lymph nodes are again seen, the more right lateral with SUV max of 10.6, And the more medial with SUV max of 13.8. In the deep subcutaneous tissues at the lateral right lower abdomen, a small hypermetabolic focus is increased, with SUV max of 8.1 More inferiorly, at the level of the right iliac wing, a similar process is seen, with SUV max of 6.2. Marked interval worsening of right internal iliac hypermetabolic lymph nodes is seen in the level of the superior right sacrum, with SUV max of 17.4 Stomach- No significant abnormalities. Liver- No significant abnormalities. Spleen- No significant abnormalities. Pancrease- No significant abnormalities. Kidneys- No significant abnormalities. Bowel- Normal bowel activity. Spine- No significant abnormalities. Hiatal hernia again seen. Moderate aortic calcification, most prominent distally, and extending into the bilateral iliac arteries is seen; no evidence of abdominal aortic aneurysm. PELVIS: Overall worsening of right inguinal hypermetabolic lymph nodes is seen. SUV max of the most medial hypermetabolic lymph node is 27.6, and the most lateral hypermetabolic lymph node 16.6. A very large and markedly worsened right lateral pelvic hypermetabolic mass is seen, with SUV max of 45.2. Worsened left lateral pelvic sidewall hypermetabolic nodule, with SUV max of 15.5. Bowel- Normal physiologic bowel activity is identified. Bones- A hypermetabolic focus of the very proximal right 5th rib is seen, increased in extent since the prior PET-CT study, with SUV max of 11.7 This is concerning for metastatic disease. Interval worsening in the extent and uptake of the distal right 4th rib is seen, also consistent with osseous metastatic disease, and with SUV max of 15.0. PET/PET/CT Tumor Base -Thigh Subs IMPRESSION: FDG avid- Overall, marked interval worsening malignancy is seen at numerous sites, includ ing numerous lymph nodes, soft tissue sites, bilateral pelvic sidewalls (right much worse than left), osseous sites as well. Other: Hiatal hernia again seen. Please note the low-dose CT scan was performed to facilitate PET image reconstr uction and anatomic localization and does not replace a diagnostic CT. Any diagnostic CT requested and performed at the time of the PET will be reported separately. Reading Location: [place] [id number]
== END | disposition home or self-care (01) ==
LOC: ONC 08:57
PROVIDERS: PCP Family Medicine; Referring Provider Internal Medicine Hematology & Oncology; Visit Provider Internal Medicine Hematology & Oncology
DX: C82.18 Follicular lymphoma grade II, lymph nodes of multiple sites (principal)
CPT/HCPCS: 78815; A9552

== ENCOUNTER → 2025-04-26 | Outpatient (CLI) | payer MEDICARE, SELFPAY ==
--- NOTE | 2025-04-26 12:50 | US_ITS ---
PROCEDURE: US/Thyroid
== END | disposition home or self-care (01) ==
LOC: US 12:50
PROVIDERS: PCP Family Medicine; Referring Provider Surgery; Visit Provider Surgery
DX: E04.1 Nontoxic single thyroid nodule (principal)
CPT/HCPCS: 76536

== ENCOUNTER → 2025-05-05 | Outpatient (CLI) | payer MEDICARE, SELFPAY ==
--- NOTE | 2025-05-05 11:07 | RAD_ITS ---
PROCEDURE: UPPER GI W/BA SWALLOW 05/05/2025 REASON FOR EXAM: K21.9 - GASTRO-ESOPHAGEAL REFLUX DISEASE WITHOUT ESOPHAGITIS TECHNIQUE: UPPER GI W/BA SWALLOW FLUOROSCOPIC TIME: 112 seconds. Dose: 31.1 mGy. COMPARISON: None. FINDINGS: Prior cervical surgery is noted. Limited imaging of the swallowing mechanism shows no abnormality. The esophagus shows no area of persistent narrowing. No mucosal abnormality is appreciated. A somewhat variable small to moderate-sized hiatal hernia is seen. A widely patent esophagogastric junction is noted. A recurrent large amount of gastroesophageal reflux was seen. The stomach otherwise shows no abnormality. No duodenal RAD/Upper GI w/BA Swallow IMPRESSION: 1. Somewhat variable [id number] sized hiatal hernia. 2. Extensive recurrent gastroesophageal reflux. Reading Location: [place] [id number]
== END | disposition home or self-care (01) ==
LOC: RAD 09:50
PROVIDERS: PCP Family Medicine; Referring Provider Surgery; Visit Provider Surgery
DX: K21.9 Gastro-esophageal reflux disease without esophagitis (principal); R09.A2 Foreign body sensation, throat
CPT/HCPCS: 74246